=== PATIENT | male | born 1985 | race Caucasian/White ===

== ENCOUNTER 2017-05-21 05:25 | Emergency (ER) | payer MEDICAID ==
[~2017-05-21] VITALS: Ht 175.3 cm; Wt 83.9 kg
[2017-05-21] MEDS ORDERED: chlordiazePOXIDE 25mg Cap ORAL ONE (05:30)
[2017-05-21] MEDS ORDERED: LIBRIUM25 MG ORAL (05:30)
--- NOTE | 2017-05-21 05:31 | Emergency Room Report ---
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 Also heavy drinker. He only get about 2 bottles vodka a day. He cut down to the or. Last drink was around 10:30 PM. He presents with alcohol withdrawal and shakiness. Also with vomiting. No suicidal thought homicidal thought. No fever or chills. Similar symptoms in the past. Denies any other complaint. Allergies: Coded Allergies: No Known Allergies (Unverified , 02/11/16) Patient History Past Medical History: see triage record, old chart reviewed Past Surgical History: other Pertinent Family History: none Social History: Reports: smoking, alcohol use, drug use Immunizations: other Reviewed Nursing Documentation: PMH: Agreed, PSxH: Agreed Nursing Documentation-PMH Past Medical History: No Stated History Review of Systems Eye: Denies: eye pain, blurred vision ENT: Denies: ear pain, nose congestion, throat swelling Respiratory: Denies: cough, shortness of breath Cardiovascular: Denies: chest pain, palpitations Gastrointestinal: Reports: abdominal pain, nausea, vomiting, Denies: diarrhea Musculoskeletal: Denies: back pain, joint pain Skin: Denies: rash Neurological: Denies: headache, numbness Endocrine: Denies: increased thirst, increased urine Hematologic/Lymphatic: Denies: easy bruising All Other Systems: negative except mentioned in HPI Physical Exam Vital Signs Date Time Temp Pulse Resp B/P (MAP) Pulse Ox O2 Delivery O2 Flow Rate FiO2 05/21/17 05:19 99.0 107 20 128/79 99 Room Air vitals with tachycardi Sp02 EP Interpretation: reviewed, normal General Appearance: well appearing, no apparent distress, alert Head: normocephalic, atraumatic Eyes: bilateral eye PERRL, bilateral eye EOMI ENT: hearing grossly normal, normal pharynx Neck: full range of motion, supple, no meningismus Respiratory: chest non-tender, lungs clear, normal breath sounds Cardiovascular #1: regular rate, rhythm, no murmur Gastrointestinal: normal bowel sounds, non tender, no mass, no organomegaly, no bruit, non-distended Musculoskeletal: back normal, gait/station normal, normal range of motion Neurologic: alert, oriented x3, other - Tremulous Psychiatric: mood/affect normal Skin: warm/dry Medical Decision Making Diagnostic Impression: Primary Impression: Alcohol withdrawal Qualified Codes: F10.230 - Alcohol dependence with withdrawal, uncomplicated ER Course Patient with alcohol withdrawal. Better after Ativan and Phenergan. Also give him Librium. We'll discharge home. No evidence of suicidal thought homicidal thought. No criteria for 5150. Last Vital Signs Date Time Temp Pulse Resp B/P (MAP) Pulse Ox O2 Delivery O2 Flow Rate FiO2 05/21/17 05:19 99.0 107 20 128/79 99 Room Air Status: improved Disposition: HOME, SELF-CARE Condition: Stable Scripts Chlordiazepoxide (Chlordiazepoxide HCl) 25 Mg Capsule 25 MG ORAL THREE TIMES A DAY, #21 CAP 0 Refills Prov: ISATU PETERSEN M.D. 05/21/17 Additional Instructions: Abstain from drugs and alcohol. Followup with rehabilitation. Go to AA meeting. Followup with your Dr. in 7 days. Return if worse. ISATU PETERSEN M.D. May 21, 2017 05:31
[2017-05-21] MEDS ORDERED: LORazepam Inj 2mg/ml 1ml IM ONE (05:45)
[2017-05-21 06:36] VITALS: BP 128/79
== END 2017-05-21 06:38 | disposition home or self-care (01) ==
LOC: EDBD 05:25 → EMR 05:36
DX: F10.239 Alcohol dependence with withdrawal, unspecified (principal); F11.10 Opioid abuse, uncomplicated
CPT/HCPCS: 96372; 99283; J2550

== ENCOUNTER 2017-06-28 17:50 | Emergency (ER) | payer MEDICAID ==
[~2017-06-28] VITALS: Ht 172.7 cm; Wt 72.6 kg
[~2017-06-28 17:50] MED LIST: LIBRIUM25 MG ORAL
[2017-06-28] MEDS ORDERED: LORazepam Inj 2mg/ml 1ml IV ONE (19:00)
[2017-06-28 19:13] LABS: LYMPHOCYTES % (AUTO) 25.8 % (20.0-45.0); MEAN CORPUSCULAR HEMOGLOBIN 31.2 PG (27.0-31.0); MEAN CORPUSCULAR HGB CONC 30.8 G/DL (32.0-36.0); MEAN CORPUSCULAR VOLUME 101 FL (80-99); MEAN PLATELET VOLUME 6.9 FL (6.5-10.1); NEUTROPHILS % (AUTO) 67.1 % (45.0-75.0); PLATELET COUNT 130 K/UL (150-450); RED BLOOD COUNT 5.23 M/UL (4.70-6.10); RED CELL DISTRIBUTION WIDTH 12.2 % (11.6-14.8); WHITE BLOOD COUNT 6.2 K/UL (4.8-10.8)
[2017-06-28 19:23] LABS: ALANINE AMINOTRANSFERASE 248 U/L (12-78); ALBUMIN/GLOBULIN RATIO 0.8 (1.0-2.7); ALCOHOL 251 mg/dL; ANION GAP 12 mmol/L (5-15); ASPARTATE AMINO TRANSFERASE 322 U/L (15-37); CALCIUM 9.9 MG/DL (8.5-10.1); CARBON DIOXIDE 34 MMOL/L (21-32); CHLORIDE 97 MMOL/L (98-107); GLOMERULAR FILTRATION RATE > 60 mL/min (>60); POTASSIUM 4.3 MMOL/L (3.5-5.1); SODIUM 143 MMOL/L (136-145); TOTAL PROTEIN 9.6 G/DL (6.4-8.2)
[2017-06-28 19:28] VITALS: BP 145/95
[2017-06-28 19:35] LABS: ACETAMINOPHEN < 10 ug/mL (10-30)
--- NOTE | 2017-06-28 20:19 | Emergency Room Report ---
History of Present Illness General Chief Complaint: Nausea, Vomiting, and Diarrhea Source: Patient Present Illness HPI 32 YO Male Presents to the ED c/o nausea vomiting x 3 days. He denies blood in the vomit denies blood in his vomit or stool. denies dark tarry stools. reports history of alcohol dependence, withdrawal symptoms in addition to opiate dependence and is currently on methadone. Denies fevers, chills, recent travel, ill contacts. Patient denies abdominal pain. Reports drinking alcohol previously today. Denies trauma or fall. Denies CP, Palpitations, LOC, AMS, dizziness, Changes in Vision, Sensation, paresthesias, or a sudden severe headache. Allergies: Coded Allergies: CODEINE (Unverified Allergy, Unknown, 06/28/17) Patient History Past Medical History: see triage record Past Surgical History: none Pertinent Family History: none Social History: Reports: alcohol use, drug use Immunizations: UTD Reviewed Nursing Documentation: PMH: Agreed, PSxH: Agreed Nursing Documentation-PMH Past Medical History: No History, Except For Review of Systems All Other Systems: negative except mentioned in HPI Physical Exam Vital Signs Date Time Temp Pulse Resp B/P (MAP) Pulse Ox O2 Delivery O2 Flow Rate FiO2 06/28/17 17:39 98.2 130 16 150/100 99 Room Air Sp02 EP Interpretation: reviewed, normal General Appearance: alert, GCS 15, non-toxic, mild distress Head: normocephalic, atraumatic Eyes: bilateral eye normal inspection, bilateral eye PERRL ENT: hearing grossly normal, normal voice Neck: full range of motion, supple/symm/no masses Respiratory: lungs clear, normal breath sounds, speaking full sentences Cardiovascular #1: regular rate, rhythm, normal capillary refill, tachycardia Gastrointestinal: normal bowel sounds, non tender, soft, no guarding, no rebound, other - Negative Bernard signs, Negative MacBurney's sign, Negative Rosvigns Sign, Negative Psoas, No Peritoneal signs. Rectal: deferred Genitourinary: normal inspection Musculoskeletal: back normal, gait/station normal, normal range of motion, non- tender Neurologic: alert, oriented x3, responsive, motor strength/tone normal, sensory intact Psychiatric: judgement/insight normal, memory normal, mood/affect normal Skin: normal color, no rash, warm/dry, well hydrated Medical Decision Making PA Attestation Dr. Hernandez is my supervising Physician whom patient management has been discussed with. Diagnostic Impression: Primary Impression: Alcohol dependence with acute alcoholic intoxication without complication Additional Impressions: Elevated liver enzymes Gastritis Qualified Codes: K29.20 - Alcoholic gastritis without bleeding ER Course 32 YO Male Presents to the ED c/o nausea vomiting x 3 days. He denies blood in the vomit denies blood in his vomit or stool. denies dark tarry stools. reports history of alcohol dependence, withdrawal symptoms in addition to opiate dependence and is currently on methadone. Denies fevers, chills, recent travel, ill contacts. Patient denies abdominal pain. Reports drinking alcohol previously today. Denies trauma or fall. Denies CP, Palpitations, LOC, AMS, dizziness, Changes in Vision, Sensation, paresthesias, or a sudden severe headache. Pt. presents to the ED intoxicated with alcohol, pt. is NAD, pt. is alert, no obvious signs of trauma, able to ambulate to chair. Ddx considered but are not limited to ETOH, Trauma, Syncope, dementia, OD Vital signs: are WNL, pt. is afebrile H&PE are most consistent with ETOH abuse. , no evidence of trauma, no focal neurological deficits, no evidence to suggest infection. ORDERS: -CBC: no leukocytosis, no evidence to suggest acute hemorrhage. -CMP: moderately elevated AST/ALT and Alk. Phos. -UDS: Positive for benzo's - Serum ETOH: 251 ED INTERVENTIONS: - Ns Bolus - ZOfran - Pepcid -1mg Ativan -Observance while he detoxifies. Pt. was allowed to sleep/rest until clinically sober. -Pt. requests to leave. he is answering questions appropriately, able to ambulate on his own. DISCHARGE: At this time pt. is stable for d/c to home. Will provide printed patient care instructions, and any necessary prescriptions. Care plan and follow up instructions have been discussed with the patient prior to discharge. Labs Test 06/28/17 18:40 06/28/17 19:00 White Blood Count 6.2 K/UL (4.8-10.8) Red Blood Count 5.23 M/UL (4.70-6.10) Hemoglobin 16.4 G/DL (14.2-18.0) Hematocrit 53.0 % (42.0-52.0) Mean Corpuscular Volume 101 FL (80-99) Mean Corpuscular Hemoglobin 31.2 PG (27.0-31.0) Mean Corpuscular Hemoglobin Concent 30.8 G/DL (32.0-36.0) Red Cell Distribution Width 12.2 % (11.6-14.8) Platelet Count 130 K/UL (150-450) Mean Platelet Volume 6.9 FL (6.5-10.1) Neutrophils (%) (Auto) 67.1 % (45.0-75.0) Lymphocytes (%) (Auto) 25.8 % (20.0-45.0) Monocytes (%) (Auto) 6.0 % (1.0-10.0) Eosinophils (%) (Auto) 0.0 % (0.0-3.0) Basophils (%) (Auto) 1.0 % (0.0-2.0) Sodium Level 143 MMOL/L (136-145) Potassium Level 4.3 MMOL/L (3.5-5.1) Chloride Level 97 MMOL/L (98-107) Carbon Dioxide Level 34 MMOL/L (21-32) Anion Gap 12 mmol/L (5-15) Blood Urea Nitrogen 17 mg/dL (7-18) Creatinine 1.0 MG/DL (0.55-1.30) Estimat Glomerular Filtration Rate > 60 mL/min (>60) Glucose Level 109 MG/DL (74-106) Calcium Level 9.9 MG/DL (8.5-10.1) Total Bilirubin 0.8 MG/DL (0.2-1.0) Aspartate Amino Transf (AST/SGOT) 322 U/L (15-37) Alanine Aminotransferase (ALT/SGPT) 248 U/L (12-78) Alkaline Phosphatase 155 U/L (46-116) Total Protein 9.6 G/DL (6.4-8.2) Albumin 4.4 G/DL (3.4-5.0) Globulin 5.2 g/dL Albumin/Globulin Ratio 0.8 (1.0-2.7) Salicylates Level < 1 mg/dL (10-30) Acetaminophen Level < 10 ug/mL (10-30) Serum Alcohol 251 mg/dL Urine Opiates Screen Negative (NEGATIVE) Urine Barbiturates Screen Negative (NEGATIVE) Phencyclidine (PCP) Screen Negative (NEGATIVE) Urine Amphetamines Screen Negative (NEGATIVE) Urine Benzodiazepines Screen Positive (NEGATIVE) Urine Cocaine Screen Negative (NEGATIVE) Urine Marijuana (THC) Screen Negative (NEGATIVE) Last Vital Signs Date Time Temp Pulse Resp B/P (MAP) Pulse Ox O2 Delivery O2 Flow Rate FiO2 06/28/17 19:28 98.2 98 16 145/95 99 Room Air Disposition: HOME, SELF-CARE Condition: Stable Scripts Ondansetron Odt* (ZOFRAN ODT*) 4 Mg Tab.rapdis 4 MG ORAL Q6H Y for Nausea & Vomiting, #5 TAB Prov: Randa Nelson 06/28/17 Chlordiazepoxide Hcl* (LIBRIUM*) 10 Mg Capsule 10 MG ORAL Q8HR, #2 CAP 0 Refills Prov: Randa Nelson 06/28/17 Patient Instructions: Alcohol Intoxication, [id number], Alcohol Withdrawal, Rsmg-fs-[id number], Alcoholic Liver Disease, [id number] Additional Instructions: Take medications as directed. Follow up with a Primary Care Provider in 3-5 days, even if your symptoms have resolved. --Please review list of primary care clinics, if you do not already have a primary care provider --- REVIEW list of ALCOHOL/Substance DEPENDENCE RESOURCES. STOP DRINKING ALCOHOL> Return sooner to ED if new symptoms occur, or current symptoms become worse. Do not drink alcohol, drive, or operate heavy machinery while taking LIBRIUM as this may cause drowsiness. - Please note that this Emergency Department Report was dictated using [employer] and [employer] robot[employer] mechanic technology software, occasionally this can lead to erroneous entry secondary to interpretation by the dictation equipment. Randa Nelson Jun 28, 2017 20:19
[2017-06-28] MEDS ORDERED: LIBRIUM10 MG ORAL (20:21)
[2017-06-28] MEDS ORDERED: ZOFRAN ODT4 MG ORAL (20:21)
[2017-06-28 21:15] VITALS: BP 138/88
== END 2017-06-28 21:15 | disposition home or self-care (01) ==
LOC: EDBD 17:50 → EMR 18:30
DX: F10.229 Alcohol dependence with intoxication, unspecified (principal); R74.8 Abnormal levels of other serum enzymes; K29.70 Gastritis, unspecified, without bleeding; R11.2 Nausea with vomiting, unspecified; Z88.6 Allergy status to analgesic agent
CPT/HCPCS: 36415; 80053; 80306; 80329; 85025; 96372; 96374; 96375; 99284; J2405; S0028

== ENCOUNTER 2017-07-08 11:57 | Inpatient (IN) | payer MEDICAID ==
[~2017-07-08] VITALS: Ht 172.7 cm; Wt 83.5 kg
[~2017-07-08 11:57] MED LIST changes: +LIBRIUM10 MG ORAL; +ZOFRAN ODT4 MG ORAL
[2017-07-08] MEDS ORDERED: LORazepam Inj 2mg/ml 1ml IV ONE (12:15)
[2017-07-08 12:40] VITALS: BP 145/100
[2017-07-08 12:46] LABS: BASOPHILS % (AUTO) 1.8 % (0.0-2.0); EOSINOPHILS % (AUTO) 0.1 % (0.0-3.0); HEMATOCRIT 52.3 % (42.0-52.0); HEMOGLOBIN 17.4 G/DL (14.2-18.0); MEAN CORPUSCULAR VOLUME 98 FL (80-99); MONOCYTES % (AUTO) 7.7 % (1.0-10.0); NEUTROPHILS % (AUTO) 60.4 % (45.0-75.0); PLATELET COUNT 214 K/UL (150-450); RED BLOOD COUNT 5.32 M/UL (4.70-6.10); RED CELL DISTRIBUTION WIDTH 12.3 % (11.6-14.8); WHITE BLOOD COUNT 3.9 K/UL (4.8-10.8)
[2017-07-08 13:22] LABS: ALANINE AMINOTRANSFERASE 255 U/L (12-78); ALBUMIN 4.1 G/DL (3.4-5.0); ALBUMIN/GLOBULIN RATIO 0.7 (1.0-2.7); ALKALINE PHOSPHATASE 141 U/L (46-116); ANION GAP 17 mmol/L (5-15); ASPARTATE AMINO TRANSFERASE 468 U/L (15-37); BILIRUBIN,TOTAL 0.8 MG/DL (0.2-1.0); BLOOD UREA NITROGEN 13 mg/dL (7-18); CARBON DIOXIDE 28 MMOL/L (21-32); CHLORIDE 93 MMOL/L (98-107); CREATININE 0.8 MG/DL (0.55-1.30); POTASSIUM 4.1 MMOL/L (3.5-5.1); SODIUM 138 MMOL/L (136-145)
[2017-07-08] MEDS ORDERED: XANAX0.25 MG ORAL (13:51)
[2017-07-08] MEDS ORDERED: METHADONE HCL5 MG PO (13:51)
--- NOTE | 2017-07-08 14:06 | Emergency Room Report ---
History of Present Illness General Chief Complaint: Vomiting Source: Patient Present Illness HPI Patient presents emergency department today complaining of vomiting. Patient is an alcoholic and takes methadone he drank last yesterday and developed acute onset of nausea abdominal pain associate of vomiting today. He denies any fever. Complains of diffuse body aches. Denies any chest pain. No other complaints are noted. Symptoms noted to be severe.No other modifying factors. No other associated signs and symptoms. No other complaints were noted. Allergies: Coded Allergies: CODEINE (Unverified Allergy, Unknown, 06/28/17) Patient History Past Medical History: none Past Surgical History: none Social History: Reports: smoking, alcohol use, drug use Reviewed Nursing Documentation: PMH: Agreed, PSxH: Agreed Nursing Documentation-PMH Past Medical History: No Stated History Review of Systems All Other Systems: negative except mentioned in HPI Physical Exam Vital Signs Date Time Temp Pulse Resp B/P (MAP) Pulse Ox O2 Delivery O2 Flow Rate FiO2 07/08/17 11:52 98.1 112 18 140/98 99 Room Air 07/08/17 12:40 2.0 Sp02 EP Interpretation: reviewed, normal General Appearance: alert, moderate distress Head: atraumatic Eyes: bilateral eye normal inspection ENT: normal ENT inspection, hearing grossly normal, normal voice Neck: normal inspection, full range of motion, supple, no bony tend Respiratory: normal inspection, lungs clear, normal breath sounds, no respiratory distress, no retraction, no wheezing Cardiovascular #1: regular rate, rhythm, no edema Gastrointestinal: soft, no guarding, tenderness - epigastric Genitourinary: no CVA tenderness Musculoskeletal: normal inspection, back normal, normal range of motion Neurologic: normal inspection, alert, responsive, speech normal Psychiatric: normal inspection, depressed affect Skin: normal inspection, normal color, no rash Medical Decision Making Diagnostic Impression: Primary Impression: Vomiting Qualified Codes: R11.2 - Nausea with vomiting, unspecified Additional Impressions: Pancreatitis Alcohol abuse Opiate addiction ER Course Patient presents emergency department today complaining of abdominal pain. Differential diagnoses include hepatitis, cholecystitis, gastritis, gastritis, alcohol withdrawal just to name a few.Given the severity of the patient's presentation I felt this is a highly complex patient. This patient required extensive workup. Patient's laboratory workup shows significant elevation of lipase which is consistent with pancreatitis. Because of this presentation and patient's persistent vomiting for the patient require admission to the hospital further treatment. I will discuss his case with Dr. Sawyer for admission. Labs Test 07/08/17 12:25 White Blood Count 3.9 K/UL (4.8-10.8) Red Blood Count 5.32 M/UL (4.70-6.10) Hemoglobin 17.4 G/DL (14.2-18.0) Hematocrit 52.3 % (42.0-52.0) Mean Corpuscular Volume 98 FL (80-99) Mean Corpuscular Hemoglobin 32.7 PG (27.0-31.0) Mean Corpuscular Hemoglobin Concent 33.3 G/DL (32.0-36.0) Red Cell Distribution Width 12.3 % (11.6-14.8) Platelet Count 214 K/UL (150-450) Mean Platelet Volume 6.4 FL (6.5-10.1) Neutrophils (%) (Auto) 60.4 % (45.0-75.0) Lymphocytes (%) (Auto) 30.0 % (20.0-45.0) Monocytes (%) (Auto) 7.7 % (1.0-10.0) Eosinophils (%) (Auto) 0.1 % (0.0-3.0) Basophils (%) (Auto) 1.8 % (0.0-2.0) Sodium Level 138 MMOL/L (136-145) Potassium Level 4.1 MMOL/L (3.5-5.1) Chloride Level 93 MMOL/L (98-107) Carbon Dioxide Level 28 MMOL/L (21-32) Anion Gap 17 mmol/L (5-15) Blood Urea Nitrogen 13 mg/dL (7-18) Creatinine 0.8 MG/DL (0.55-1.30) Estimat Glomerular Filtration Rate > 60 mL/min (>60) Glucose Level 118 MG/DL (74-106) Calcium Level 9.0 MG/DL (8.5-10.1) Total Bilirubin 0.8 MG/DL (0.2-1.0) Aspartate Amino Transf (AST/SGOT) 468 U/L (15-37) Alanine Aminotransferase (ALT/SGPT) 255 U/L (12-78) Alkaline Phosphatase 141 U/L (46-116) Total Protein 9.6 G/DL (6.4-8.2) Albumin 4.1 G/DL (3.4-5.0) Globulin 5.5 g/dL Albumin/Globulin Ratio 0.7 (1.0-2.7) Lipase 1681 U/L (73-393) Last Vital Signs Date Time Temp Pulse Resp B/P (MAP) Pulse Ox O2 Delivery O2 Flow Rate FiO2 07/08/17 12:40 98.0 108 15 145/100 95 Nasal Cannula 2.0 Status: improved Disposition: ADMITTED INPATIENT Condition: Serious Referrals: NOT CHOSEN IPA/,REFERRING (PCP) ANNA JIMENEZ M.D. Jul 08, 2017 14:06
[2017-07-08 14:14] VITALS: BP 142/98
[2017-07-08 14:33] LABS: APPEARANCE,URINE CLEAR; BILIRUBIN, URINE 1+ (NEGATIVE); COLOR,URINE BROWN; GLUCOSE, URINE (UA) NEGATIVE (NEGATIVE); KETONES,URINE 1+ (NEGATIVE); LEUKOCYTE ESTERASE ,URINE 1+ (NEGATIVE); NITRITE,URINE POSITIVE (NEGATIVE); PH,URINE 6 (4.5-8.0); PROTEIN,URINE 4+ (NEGATIVE); UROBILINOGEN,URINE 4 MG/DL (0.0-1.0)
[2017-07-08] MEDS ORDERED: Metoclopramide 10mg/2ml Inj IVP PRN (15:15)
[2017-07-08] MEDS ORDERED: Miralax 17gm pkt ORAL PRN (15:15)
[2017-07-08] MEDS ORDERED: Mylanta II UD 30ml ORAL PRN (15:15)
[2017-07-08] MEDS ORDERED: Nitroglycerin Subl 0.4mg tab SL PRN (15:15)
[2017-07-08 15:24] VITALS: BP 140/89
[2017-07-08 16:00] VITALS: BP 143/93
[2017-07-08] MEDS: D5 1/2NS 1,000 ML IV SCH (16:43)
[2017-07-08] MEDS: LORazepam Inj 2mg/ml 1ml IV PRN (16:43)
[2017-07-08 21:00] VITALS: BP 148/96
[2017-07-08] MEDS: Heparin 5000 units/ml inj SUBQ SCH (22:21)
[2017-07-09] VITALS: BP 147/97
[2017-07-09] MEDS: D5 1/2NS 1,000 ML IV SCH ×3 (03:41→23:10)
[2017-07-09 04:00] VITALS: BP 139/90
[2017-07-09 08:00] VITALS: BP 147/89
--- NOTE | 2017-07-09 08:12 | General Progress Note ---
Assessment/Plan Problem List: (1) Alcohol abuse ICD Codes: F10.10 - Alcohol abuse, uncomplicated SNOMED: 78804401 (2) Opiate addiction ICD Codes: F11.20 - Opioid dependence, uncomplicated SNOMED: 32345015 (3) Pancreatitis ICD Codes: K85.90 - Acute pancreatitis without necrosis or infection, unspecified SNOMED: 83116544 Assessment/Plan NPO increase IVF to 150 cc abd us banana bag pain control repeat labs Subjective ROS Limited/Unobtainable: Yes Allergies: Coded Allergies: CODEINE (Unverified Allergy, Unknown, 06/28/17) Subjective abd pain Objective Last 24 Hour Vital Signs Date Time Temp Pulse Resp B/P (MAP) Pulse Ox O2 Delivery O2 Flow Rate FiO2 07/09/17 04:00 98.1 99 21 139/90 98 Room Air 07/09/17 00:00 98.1 100 21 147/97 97 Room Air 07/08/17 21:00 97.9 103 20 148/96 96 Room Air 07/08/17 16:00 97.5 101 19 143/93 94 Room Air 07/08/17 15:25 98.0 100 17 140/89 95 Room Air 07/08/17 15:24 100 17 140/89 95 Room Air 07/08/17 14:14 98.0 100 14 142/98 95 Nasal Cannula 2.0 07/08/17 12:40 98.0 108 15 145/100 95 Nasal Cannula 2.0 07/08/17 11:52 98.1 112 18 140/98 99 Room Air Laboratory Tests 07/08/17 12:25: White Blood Count 3.9L, Red Blood Count 5.32, Hemoglobin 17.4, Hematocrit 52.3H , Mean Corpuscular Volume 98, Mean Corpuscular Hemoglobin 32.7H, Mean Corpuscular Hemoglobin Concent 33.3, Red Cell Distribution Width 12.3, Platelet Count 214, Mean Platelet Volume 6.4L, Neutrophils (%) (Auto) 60.4, Lymphocytes ( %) (Auto) 30.0, Monocytes (%) (Auto) 7.7, Eosinophils (%) (Auto) 0.1, Basophils (%) (Auto) 1.8, Sodium Level 138, Potassium Level 4.1, Chloride Level 93L, Carbon Dioxide Level 28, Anion Gap 17H, Blood Urea Nitrogen 13, Creatinine 0.8, Estimat Glomerular Filtration Rate > 60, Glucose Level 118H, Calcium Level 9.0, Total Bilirubin 0.8, Aspartate Amino Transf (AST/SGOT) 468H, Alanine Aminotransferase (ALT/SGPT) 255H, Alkaline Phosphatase 141H, Total Protein 9.6H , Albumin 4.1, Globulin 5.5, Albumin/Globulin Ratio 0.7L, Lipase 1681H 07/08/17 14:00: Urine Color Brown, Urine Appearance Clear, Urine pH 6, Urine Specific [place] 1.020, Urine Protein 4+H, Urine Glucose (UA) Negative, Urine Ketones 1+H, Urine Occult Blood 4+H, Urine Nitrite PositiveH, Urine Bilirubin 1+H, Urine Ictotest Negative, Urine Urobilinogen 4H, Urine Leukocyte Esterase 1+H, Urine RBC 2-4H, Urine WBC 2-4, Urine Squamous Epithelial Cells Occasional, Urine Bacteria Few, Urine Hyaline Casts 2-4H, Urine Granular Casts 2-4H Height (Feet): 5 Height (Inches): 8.00 Weight (Pounds): 184 General Appearance: alert EENT: normal ENT inspection Neck: normal alignment Cardiovascular: normal rate Respiratory/Chest: lungs clear Abdomen: hypoactive bowel sounds, tender Extremities: non-tender PADMINI BROWN Jul 09, 2017 08:12
--- NOTE | 2017-07-09 08:12 | General Progress Note ---
Assessment/Plan Problem List: (1) Alcohol abuse ICD Codes: F10.10 - Alcohol abuse, uncomplicated SNOMED: 13889741 (2) Opiate addiction ICD Codes: F11.20 - Opioid dependence, uncomplicated SNOMED: 21927211 (3) Pancreatitis ICD Codes: K85.90 - Acute pancreatitis without necrosis or infection, unspecified SNOMED: 87852301 Assessment/Plan NPO increase IVF to 150 cc abd us banana bag pain control repeat labs Subjective ROS Limited/Unobtainable: Yes Allergies: Coded Allergies: CODEINE (Unverified Allergy, Unknown, 06/28/17) Subjective abd pain Objective Last 24 Hour Vital Signs Date Time Temp Pulse Resp B/P (MAP) Pulse Ox O2 Delivery O2 Flow Rate FiO2 07/09/17 04:00 98.1 99 21 139/90 98 Room Air 07/09/17 00:00 98.1 100 21 147/97 97 Room Air 07/08/17 21:00 97.9 103 20 148/96 96 Room Air 07/08/17 16:00 97.5 101 19 143/93 94 Room Air 07/08/17 15:25 98.0 100 17 140/89 95 Room Air 07/08/17 15:24 100 17 140/89 95 Room Air 07/08/17 14:14 98.0 100 14 142/98 95 Nasal Cannula 2.0 07/08/17 12:40 98.0 108 15 145/100 95 Nasal Cannula 2.0 07/08/17 11:52 98.1 112 18 140/98 99 Room Air Laboratory Tests 07/08/17 12:25: White Blood Count 3.9L, Red Blood Count 5.32, Hemoglobin 17.4, Hematocrit 52.3H , Mean Corpuscular Volume 98, Mean Corpuscular Hemoglobin 32.7H, Mean Corpuscular Hemoglobin Concent 33.3, Red Cell Distribution Width 12.3, Platelet Count 214, Mean Platelet Volume 6.4L, Neutrophils (%) (Auto) 60.4, Lymphocytes ( %) (Auto) 30.0, Monocytes (%) (Auto) 7.7, Eosinophils (%) (Auto) 0.1, Basophils (%) (Auto) 1.8, Sodium Level 138, Potassium Level 4.1, Chloride Level 93L, Carbon Dioxide Level 28, Anion Gap 17H, Blood Urea Nitrogen 13, Creatinine 0.8, Estimat Glomerular Filtration Rate > 60, Glucose Level 118H, Calcium Level 9.0, Total Bilirubin 0.8, Aspartate Amino Transf (AST/SGOT) 468H, Alanine Aminotransferase (ALT/SGPT) 255H, Alkaline Phosphatase 141H, Total Protein 9.6H , Albumin 4.1, Globulin 5.5, Albumin/Globulin Ratio 0.7L, Lipase 1681H 07/08/17 14:00: Urine Color Brown, Urine Appearance Clear, Urine pH 6, Urine Specific [place] 1.020, Urine Protein 4+H, Urine Glucose (UA) Negative, Urine Ketones 1+H, Urine Occult Blood 4+H, Urine Nitrite PositiveH, Urine Bilirubin 1+H, Urine Ictotest Negative, Urine Urobilinogen 4H, Urine Leukocyte Esterase 1+H, Urine RBC 2-4H, Urine WBC 2-4, Urine Squamous Epithelial Cells Occasional, Urine Bacteria Few, Urine Hyaline Casts 2-4H, Urine Granular Casts 2-4H Height (Feet): 5 Height (Inches): 8.00 Weight (Pounds): 184 General Appearance: alert EENT: normal ENT inspection Neck: normal alignment Cardiovascular: normal rate Respiratory/Chest: lungs clear Abdomen: hypoactive bowel sounds, tender Extremities: non-tender PADMINI BROWN Jul 09, 2017 08:12
--- NOTE | 2017-07-09 08:12 | General Progress Note ---
Assessment/Plan Problem List: (1) Alcohol abuse ICD Codes: F10.10 - Alcohol abuse, uncomplicated SNOMED: 96859447 (2) Opiate addiction ICD Codes: F11.20 - Opioid dependence, uncomplicated SNOMED: 72035422 (3) Pancreatitis ICD Codes: K85.90 - Acute pancreatitis without necrosis or infection, unspecified SNOMED: 62314730 Assessment/Plan NPO increase IVF to 150 cc abd us banana bag pain control repeat labs Subjective ROS Limited/Unobtainable: Yes Allergies: Coded Allergies: CODEINE (Unverified Allergy, Unknown, 06/28/17) Subjective abd pain Objective Last 24 Hour Vital Signs Date Time Temp Pulse Resp B/P (MAP) Pulse Ox O2 Delivery O2 Flow Rate FiO2 07/09/17 04:00 98.1 99 21 139/90 98 Room Air 07/09/17 00:00 98.1 100 21 147/97 97 Room Air 07/08/17 21:00 97.9 103 20 148/96 96 Room Air 07/08/17 16:00 97.5 101 19 143/93 94 Room Air 07/08/17 15:25 98.0 100 17 140/89 95 Room Air 07/08/17 15:24 100 17 140/89 95 Room Air 07/08/17 14:14 98.0 100 14 142/98 95 Nasal Cannula 2.0 07/08/17 12:40 98.0 108 15 145/100 95 Nasal Cannula 2.0 07/08/17 11:52 98.1 112 18 140/98 99 Room Air Laboratory Tests 07/08/17 12:25: White Blood Count 3.9L, Red Blood Count 5.32, Hemoglobin 17.4, Hematocrit 52.3H , Mean Corpuscular Volume 98, Mean Corpuscular Hemoglobin 32.7H, Mean Corpuscular Hemoglobin Concent 33.3, Red Cell Distribution Width 12.3, Platelet Count 214, Mean Platelet Volume 6.4L, Neutrophils (%) (Auto) 60.4, Lymphocytes ( %) (Auto) 30.0, Monocytes (%) (Auto) 7.7, Eosinophils (%) (Auto) 0.1, Basophils (%) (Auto) 1.8, Sodium Level 138, Potassium Level 4.1, Chloride Level 93L, Carbon Dioxide Level 28, Anion Gap 17H, Blood Urea Nitrogen 13, Creatinine 0.8, Estimat Glomerular Filtration Rate > 60, Glucose Level 118H, Calcium Level 9.0, Total Bilirubin 0.8, Aspartate Amino Transf (AST/SGOT) 468H, Alanine Aminotransferase (ALT/SGPT) 255H, Alkaline Phosphatase 141H, Total Protein 9.6H , Albumin 4.1, Globulin 5.5, Albumin/Globulin Ratio 0.7L, Lipase 1681H 07/08/17 14:00: Urine Color Brown, Urine Appearance Clear, Urine pH 6, Urine Specific [place] 1.020, Urine Protein 4+H, Urine Glucose (UA) Negative, Urine Ketones 1+H, Urine Occult Blood 4+H, Urine Nitrite PositiveH, Urine Bilirubin 1+H, Urine Ictotest Negative, Urine Urobilinogen 4H, Urine Leukocyte Esterase 1+H, Urine RBC 2-4H, Urine WBC 2-4, Urine Squamous Epithelial Cells Occasional, Urine Bacteria Few, Urine Hyaline Casts 2-4H, Urine Granular Casts 2-4H Height (Feet): 5 Height (Inches): 8.00 Weight (Pounds): 184 General Appearance: alert EENT: normal ENT inspection Neck: normal alignment Cardiovascular: normal rate Respiratory/Chest: lungs clear Abdomen: hypoactive bowel sounds, tender Extremities: non-tender PADMINI BROWN Jul 09, 2017 08:12
[2017-07-09 08:46] LABS: BASOPHILS % (AUTO) 1.4 % (0.0-2.0); EOSINOPHILS % (AUTO) 0.4 % (0.0-3.0); HEMATOCRIT 44.4 % (42.0-52.0); HEMOGLOBIN 15.2 G/DL (14.2-18.0); LYMPHOCYTES % (AUTO) 50.7 % (20.0-45.0); MEAN CORPUSCULAR VOLUME 98 FL (80-99); MONOCYTES % (AUTO) 9.3 % (1.0-10.0); NEUTROPHILS % (AUTO) 38.3 % (45.0-75.0); PLATELET COUNT 184 K/UL (150-450); RED BLOOD COUNT 4.52 M/UL (4.70-6.10); RED CELL DISTRIBUTION WIDTH 12.4 % (11.6-14.8); WHITE BLOOD COUNT 4.1 K/UL (4.8-10.8)
[2017-07-09] MEDS: Pantoprazole Inj IV SCH (08:55)
[2017-07-09] MEDS: Heparin 5000 units/ml inj SUBQ SCH ×2 (08:56→21:33)
[2017-07-09] MEDS: LORazepam Inj 2mg/ml 1ml IV PRN ×2 (09:06→18:32)
[2017-07-09 09:09] LABS: ALANINE AMINOTRANSFERASE 198 U/L (12-78); ALBUMIN 3.6 G/DL (3.4-5.0); ALBUMIN/GLOBULIN RATIO 0.8 (1.0-2.7); ALKALINE PHOSPHATASE 116 U/L (46-116); AMYLASE 185 U/L (25-115); ANION GAP 13 mmol/L (5-15); ASPARTATE AMINO TRANSFERASE 330 U/L (15-37); BILIRUBIN,TOTAL 0.6 MG/DL (0.2-1.0); BLOOD UREA NITROGEN 7 mg/dL (7-18); CALCIUM 8.4 MG/DL (8.5-10.1); CARBON DIOXIDE 28 MMOL/L (21-32); CHLORIDE 101 MMOL/L (98-107); CREATININE 0.7 MG/DL (0.55-1.30); POTASSIUM 3.5 MMOL/L (3.5-5.1); SODIUM 142 MMOL/L (136-145)
[2017-07-09] MEDS ORDERED: Thiamine HCl 100mg/ml 2 ml Inj ONE (10:42)
[2017-07-09] MEDS: Thiamine 100mg in D5W 55ml IVPB SCH (10:49)
[2017-07-09] MEDS: Folic Acid 1 MG, Magnesium Sulfate 2,000 MG, Multivitamin - 12 Injection 10 ML in NS w/... IV SCH (10:49)
[2017-07-09 12:00] VITALS: BP 145/95
--- NOTE | 2017-07-09 12:20 | History and Physical ---
History of Present Illness General Date patient seen: Jul 09, 2017 Reason for Hospitalization: Acute abdominal pain intractable emesis Present Illness HPI 32 yo gentleman with pmhx alcohol addiction and dependence who presents to [facility] a complaint of acute abdominal pain and intractable emesis inability to tolerate fluids or food and a recent history of alcohol binge drinking one night earlier, the patient presents after his abdominal pain worsened and emesis not improved. The patient is being admitted with a diagnosis of acute pancreatitis most likely alcohol induced and will be examined for other pathologies if concomittant. The abdominal pain is described as severe rated 10 out of 10 being worst constant with no relieving factors. Allergies: Coded Allergies: CODEINE (Unverified Allergy, Unknown, 06/28/17) Medication History Scheduled Chlordiazepoxide (Chlordiazepoxide HCl), 25 MG ORAL THREE TIMES A DAY Chlordiazepoxide Hcl* (Librium*), 25 MG ORAL EVERY 8 HOURS, (Reported) Folic Acid* (Folic Acid*), 1 MG ORAL DAILY Methadone Hcl* (Methadone*), Unknown Dose PO DAILY, (Reported) Thiamine Hcl* (Vitamin B-1*), 100 MG ORAL DAILY Scheduled PRN Ondansetron Odt* (Zofran Odt*), 4 MG ORAL Q6H PRN for Nausea & Vomiting Patient History Healthcare decision maker Resuscitation status Full Code Advanced Directive on File No Past Medical/Surgical History Past Medical/Surgical History: (1) Accidental methadone overdose (2) Acute alcoholic intoxication Review of Systems Constitutional: Reports: malaise, weakness Gastrointestinal: Reports: abdominal pain, vomiting Physical Exam General Appearance: moderate distress Lines, tubes and drains: peripheral HEENT: normocephalic, atraumatic, PERRL Neck: non-tender, normal alignment, supple Respiratory/Chest: chest wall non-tender, lungs clear, normal breath sounds, no respiratory distress, no accessory muscle use Breasts: no masses Cardiovascular/Chest: normal peripheral pulses, normal rate, regular rhythm, no JVD Abdomen: normal bowel sounds, non tender, soft, no organomegaly, no mass Genitourinary/Rectal: normal genital exam, normal rectal exam Extremities: normal range of motion, non-tender, normal inspection, no calf tenderness, normal capillary refill, non-pitting Skin Exam: normal pigmentation, warm/dry 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, no motor/sensory deficits, disoriented Last 24 Hour Vital Signs Date Time Temp Pulse Resp B/P (MAP) Pulse Ox O2 Delivery O2 Flow Rate FiO2 07/09/17 08:00 97.9 99 19 147/89 96 Room Air 07/09/17 04:00 98.1 99 21 139/90 98 Room Air 07/09/17 00:00 98.1 100 21 147/97 97 Room Air 07/08/17 21:00 97.9 103 20 148/96 96 Room Air 07/08/17 16:00 97.5 101 19 143/93 94 Room Air 07/08/17 15:25 98.0 100 17 140/89 95 Room Air 07/08/17 15:24 100 17 140/89 95 Room Air 07/08/17 14:14 98.0 100 14 142/98 95 Nasal Cannula 2.0 07/08/17 12:40 98.0 108 15 145/100 95 Nasal Cannula 2.0 Laboratory Tests Test 07/08/17 12:25 07/08/17 14:00 07/09/17 05:47 White Blood Count 3.9 K/UL (4.8-10.8) L 4.1 K/UL (4.8-10.8) L Red Blood Count 5.32 M/UL (4.70-6.10) 4.52 M/UL (4.70-6.10) L Hemoglobin 17.4 G/DL (14.2-18.0) 15.2 G/DL (14.2-18.0) Hematocrit 52.3 % (42.0-52.0) H 44.4 % (42.0-52.0) Mean Corpuscular Volume 98 FL (80-99) 98 FL (80-99) Mean Corpuscular Hemoglobin 32.7 PG (27.0-31.0) H 33.6 PG (27.0-31.0) H Mean Corpuscular Hemoglobin Concent 33.3 G/DL (32.0-36.0) 34.2 G/DL (32.0-36.0) Red Cell Distribution Width 12.3 % (11.6-14.8) 12.4 % (11.6-14.8) Platelet Count 214 K/UL (150-450) 184 K/UL (150-450) Mean Platelet Volume 6.4 FL (6.5-10.1) L 6.7 FL (6.5-10.1) Neutrophils (%) (Auto) 60.4 % (45.0-75.0) 38.3 % (45.0-75.0) L Lymphocytes (%) (Auto) 30.0 % (20.0-45.0) 50.7 % (20.0-45.0) H Monocytes (%) (Auto) 7.7 % (1.0-10.0) 9.3 % (1.0-10.0) Eosinophils (%) (Auto) 0.1 % (0.0-3.0) 0.4 % (0.0-3.0) Basophils (%) (Auto) 1.8 % (0.0-2.0) 1.4 % (0.0-2.0) Sodium Level 138 MMOL/L (136-145) 142 MMOL/L (136-145) Potassium Level 4.1 MMOL/L (3.5-5.1) 3.5 MMOL/L (3.5-5.1) Chloride Level 93 MMOL/L (98-107) L 101 MMOL/L (98-107) Carbon Dioxide Level 28 MMOL/L (21-32) 28 MMOL/L (21-32) Anion Gap 17 mmol/L (5-15) H 13 mmol/L (5-15) Blood Urea Nitrogen 13 mg/dL (7-18) 7 mg/dL (7-18) Creatinine 0.8 MG/DL (0.55-1.30) 0.7 MG/DL (0.55-1.30) Estimat Glomerular Filtration Rate > 60 mL/min (>60) > 60 mL/min (>60) Glucose Level 118 MG/DL (74-106) H 92 MG/DL (74-106) Calcium Level 9.0 MG/DL (8.5-10.1) 8.4 MG/DL (8.5-10.1) L Total Bilirubin 0.8 MG/DL (0.2-1.0) 0.6 MG/DL (0.2-1.0) Aspartate Amino Transf (AST/SGOT) 468 U/L (15-37) H 330 U/L (15-37) H Alanine Aminotransferase (ALT/SGPT) 255 U/L (12-78) H 198 U/L (12-78) H Alkaline Phosphatase 141 U/L (46-116) H 116 U/L (46-116) Total Protein 9.6 G/DL (6.4-8.2) H 7.9 G/DL (6.4-8.2) Albumin 4.1 G/DL (3.4-5.0) 3.6 G/DL (3.4-5.0) Globulin 5.5 g/dL 4.3 g/dL Albumin/Globulin Ratio 0.7 (1.0-2.7) L 0.8 (1.0-2.7) L Lipase 1681 U/L (73-393) H 1722 U/L (73-393) H Urine Color Brown Urine Appearance Clear Urine pH 6 (4.5-8.0) Urine Specific [place] 1.020 (1.005-1.035) Urine Protein 4+ (NEGATIVE) H Urine Glucose (UA) Negative (NEGATIVE) Urine Ketones 1+ (NEGATIVE) H Urine Occult Blood 4+ (NEGATIVE) H Urine Nitrite Positive (NEGATIVE) H Urine Bilirubin 1+ (NEGATIVE) H Urine Ictotest Negative Urine Urobilinogen 4 MG/DL (0.0-1.0) H Urine Leukocyte Esterase 1+ (NEGATIVE) H Urine RBC 2-4 /HPF (0 - 0) H Urine WBC 2-4 /HPF (0 - 0) Urine Squamous Epithelial Cells Occasional /LPF Urine Bacteria Few /HPF (NONE) Urine Hyaline Casts 2-4 /LPF (NONE) H Urine Granular Casts 2-4 /LPF (NONE) H Activated Partial Thromboplast Time 26 SEC (23-33) Amylase Level 185 U/L (25-115) H Height (Feet): 5 Height (Inches): 8.00 Weight (Pounds): 184 Medications Current Medications Medications (Trade) Dose Ordered Sig/Ihsan Route PRN Reason Start Time Stop Time Status Last Admin Dose Admin Acetaminophen (Tylenol) 650 mg Q4H PRN ORAL fever 07/08/17 15:15 08/07/17 15:14 Al Hydroxide/Mg Hydroxide (Mylanta II) 30 ml Q6H PRN ORAL dyspepsia 07/08/17 15:15 08/07/17 15:14 Dextrose (Dextrose 50%) STAT PRN IV Hypoglycemia 07/08/17 15:15 08/07/17 15:14 Dextrose/Sodium Chloride 1,000 ml @ 150 mls/hr Q6H40M IV 07/09/17 16:30 08/08/17 16:29 Diphenhydramine HCl (Benadryl) 25 mg Q6H PRN ORAL Itching/Pruritis 07/08/17 15:15 08/07/17 15:14 Folic Acid 1 mg/ Magnesium Sulfate 2000 mg/ Multivitamins 10 ml/Sodium Chloride 1,014.2 ml @ 125 mls/ hr Q24H IV 07/09/17 09:30 08/08/17 09:29 07/09/17 10:49 Heparin Sodium (Porcine) (Heparin 5000 units/ml) 5,000 units EVERY 12 HOURS SUBQ 07/08/17 21:00 08/07/17 20:59 07/09/17 08:56 Lorazepam (Ativan 2mg/ml 1ml) 1 mg Q4H PRN IV agitation 07/08/17 15:15 07/15/17 15:14 07/09/17 09:06 Methadone HCl (Methadone HCl) 5 mg DAILY ORAL 07/09/17 10:00 07/16/17 09:59 07/09/17 10:36 Methadone HCl (Methadone HCl) 180 mg DAILY ORAL 07/09/17 10:00 07/16/17 09:59 07/09/17 10:35 Metoclopramide HCl (Reglan) 10 mg Q6H PRN IVP SEVERE NAUSEA 07/08/17 15:15 08/07/17 15:14 07/08/17 16:29 Nitroglycerin (Ntg) 0.4 mg Q5M X 3 DOSES PRN SL Prn Chest Pain 07/08/17 15:15 08/07/17 15:14 Ondansetron HCl (Zofran) 4 mg Q6H PRN IVP Nausea & Vomiting 07/08/17 15:15 08/07/17 15:14 Pantoprazole (Protonix) 40 mg DAILY IV 07/09/17 09:00 08/08/17 08:59 07/09/17 08:55 Polyethylene Glycol (Miralax) 17 gm HSPRN PRN ORAL Constipation 07/08/17 15:15 08/07/17 15:14 Promethazine HCl (Phenergan) 25 mg Q8H PRN IV refractory nausea 07/08/17 15:15 08/07/17 15:14 Temazepam (Restoril) 15 mg HSPRN PRN ORAL Insomnia 07/08/17 15:15 07/15/17 15:14 Thiamine HCl 100 mg/Dextrose 56 ml @ 112 mls/hr Q24H IVPB 07/09/17 09:30 08/08/17 09:29 07/09/17 10:49 Assessment/Plan Status: stable, progressing Assessment/Plan Acute Pancreatitis Acute intractable emesis Inability to tolerate po intake Opiate addiction and dependence Alcohol abuse Plan NPO IV fluid hydration Gastroenterology requested Anti-emetics as needed Electrolyte replacement Alcoholic withdrawel symptomatic relief Patient education regarding abstaining from ETOH and pancreatic rest DANYELL SHANKAR Jul 09, 2017 12:20
[2017-07-09 16:00] VITALS: BP 139/90
[2017-07-09 20:00] VITALS: BP 151/93
[2017-07-10] VITALS: BP 130/86
[2017-07-10] MEDS: D5 1/2NS 1,000 ML IV SCH ×3 (00:27→18:35)
[2017-07-10 04:00] VITALS: BP 133/75
[2017-07-10] MEDS: LORazepam Inj 2mg/ml 1ml IV PRN ×3 (07:17→18:36)
--- NOTE | 2017-07-10 07:55 | General Progress Note ---
Assessment/Plan Problem List: (1) Alcohol abuse ICD Codes: F10.10 - Alcohol abuse, uncomplicated SNOMED: 49790845 (2) Opiate addiction ICD Codes: F11.20 - Opioid dependence, uncomplicated SNOMED: 43498306 (3) Pancreatitis ICD Codes: K85.90 - Acute pancreatitis without necrosis or infection, unspecified SNOMED: 59164545 Assessment/Plan clears IVF at 150 cc abd us banana bag pain control repeat labs Subjective ROS Limited/Unobtainable: Yes Allergies: Coded Allergies: CODEINE (Unverified Allergy, Unknown, 06/28/17) Subjective abd pain Objective Last 24 Hour Vital Signs Date Time Temp Pulse Resp B/P (MAP) Pulse Ox O2 Delivery O2 Flow Rate FiO2 07/10/17 04:00 98.5 97 18 133/75 95 Room Air 07/10/17 00:00 97.7 99 18 130/86 92 Room Air 07/09/17 20:00 97.9 93 20 151/93 92 Room Air 07/09/17 16:00 97.7 102 18 139/90 98 Room Air 07/09/17 12:00 98.1 86 19 145/95 97 Room Air 07/09/17 08:00 97.9 99 19 147/89 96 Room Air Height (Feet): 5 Height (Inches): 8.00 Weight (Pounds): 184 General Appearance: mild distress EENT: normal ENT inspection Neck: supple Cardiovascular: normal rate Respiratory/Chest: decreased breath sounds Abdomen: soft, hypoactive bowel sounds, tender Extremities: non-tender PADMINI BROWN Jul 10, 2017 07:55
--- NOTE | 2017-07-10 07:55 | General Progress Note ---
Assessment/Plan Problem List: (1) Alcohol abuse ICD Codes: F10.10 - Alcohol abuse, uncomplicated SNOMED: 58275168 (2) Opiate addiction ICD Codes: F11.20 - Opioid dependence, uncomplicated SNOMED: 95577767 (3) Pancreatitis ICD Codes: K85.90 - Acute pancreatitis without necrosis or infection, unspecified SNOMED: 65743681 Assessment/Plan clears IVF at 150 cc abd us banana bag pain control repeat labs Subjective ROS Limited/Unobtainable: Yes Allergies: Coded Allergies: CODEINE (Unverified Allergy, Unknown, 06/28/17) Subjective abd pain Objective Last 24 Hour Vital Signs Date Time Temp Pulse Resp B/P (MAP) Pulse Ox O2 Delivery O2 Flow Rate FiO2 07/10/17 04:00 98.5 97 18 133/75 95 Room Air 07/10/17 00:00 97.7 99 18 130/86 92 Room Air 07/09/17 20:00 97.9 93 20 151/93 92 Room Air 07/09/17 16:00 97.7 102 18 139/90 98 Room Air 07/09/17 12:00 98.1 86 19 145/95 97 Room Air 07/09/17 08:00 97.9 99 19 147/89 96 Room Air Height (Feet): 5 Height (Inches): 8.00 Weight (Pounds): 184 General Appearance: mild distress EENT: normal ENT inspection Neck: supple Cardiovascular: normal rate Respiratory/Chest: decreased breath sounds Abdomen: soft, hypoactive bowel sounds, tender Extremities: non-tender PADMINI BROWN Jul 10, 2017 07:55
--- NOTE | 2017-07-10 07:55 | General Progress Note ---
Assessment/Plan Problem List: (1) Alcohol abuse ICD Codes: F10.10 - Alcohol abuse, uncomplicated SNOMED: 83486626 (2) Opiate addiction ICD Codes: F11.20 - Opioid dependence, uncomplicated SNOMED: 94952888 (3) Pancreatitis ICD Codes: K85.90 - Acute pancreatitis without necrosis or infection, unspecified SNOMED: 35246534 Assessment/Plan clears IVF at 150 cc abd us banana bag pain control repeat labs Subjective ROS Limited/Unobtainable: Yes Allergies: Coded Allergies: CODEINE (Unverified Allergy, Unknown, 06/28/17) Subjective abd pain Objective Last 24 Hour Vital Signs Date Time Temp Pulse Resp B/P (MAP) Pulse Ox O2 Delivery O2 Flow Rate FiO2 07/10/17 04:00 98.5 97 18 133/75 95 Room Air 07/10/17 00:00 97.7 99 18 130/86 92 Room Air 07/09/17 20:00 97.9 93 20 151/93 92 Room Air 07/09/17 16:00 97.7 102 18 139/90 98 Room Air 07/09/17 12:00 98.1 86 19 145/95 97 Room Air 07/09/17 08:00 97.9 99 19 147/89 96 Room Air Height (Feet): 5 Height (Inches): 8.00 Weight (Pounds): 184 General Appearance: mild distress EENT: normal ENT inspection Neck: supple Cardiovascular: normal rate Respiratory/Chest: decreased breath sounds Abdomen: soft, hypoactive bowel sounds, tender Extremities: non-tender PADMINI BROWN Jul 10, 2017 07:55
[2017-07-10 08:29] VITALS: BP 141/88
[2017-07-10] MEDS: Pantoprazole Inj IV SCH (09:27)
[2017-07-10] MEDS: Folic Acid 1 MG, Magnesium Sulfate 2,000 MG, Multivitamin - 12 Injection 10 ML in NS w/... IV SCH (09:28)
[2017-07-10] MEDS: Thiamine 100mg in D5W 55ml IVPB SCH (09:28)
[2017-07-10] MEDS ORDERED: D5 1/2NS 1000ml IV ONE (09:35)
[2017-07-10] MEDS ORDERED: Tubing IV Secondary IV ONE (09:35)
[2017-07-10] MEDS: Heparin 5000 units/ml inj SUBQ SCH ×2 (09:42→22:01)
--- NOTE | 2017-07-10 11:31 | Diagnostic Imaging Report ---
ULTRASOUND OF THE ABDOMEN HISTORY: Abdominal pain. TECHNIQUE: Grayscale ultrasound imaging of the abdomen was performed. COMPARISON: No prior study is available for comparison. FINDINGS: The liver exhibits an echogenic parenchyma suggesting hepatic steatosis. The liver measures 18.2 cm in craniocaudal dimension. There is no intrahepatic biliary ductal dilatation. Routine color and pulsed Doppler images demonstrate normal hepatopetal flow in the main portal vein. The gallbladder is normal without cholelithiasis, wall thickening, or pericholecystic fluid. The common bile duct measures 4 mm. The head and body of the pancreas are normal. The pancreatic tail is obscured by gas. The spleen is normal in appearance and measures 10.5 cm. The right kidney measures 11.2 cm in length. The left kidney measures 11.3 cm in length. The kidneys appear normal without evidence of hydronephrosis. The visualized portions of the aorta and inferior vena cava appear normal. IMPRESSION: Hepatomegaly with increased liver echogenicity suggesting hepatic steatosis. Please correlate with clinical parameters and LFTs.
[2017-07-10 11:46] VITALS: BP 139/85
[2017-07-10 13:06] LABS: HEMATOCRIT 45.1 % (42.0-52.0); MEAN CORPUSCULAR VOLUME 99 FL (80-99); PLATELET COUNT 172 K/UL (150-450); RED BLOOD COUNT 4.55 M/UL (4.70-6.10); RED CELL DISTRIBUTION WIDTH 12.4 % (11.6-14.8); WHITE BLOOD COUNT 3.4 K/UL (4.8-10.8)
[2017-07-10 13:54] LABS: ALANINE AMINOTRANSFERASE 189 U/L (12-78); ALBUMIN 3.6 G/DL (3.4-5.0); ALBUMIN/GLOBULIN RATIO 0.8 (1.0-2.7); ALKALINE PHOSPHATASE 111 U/L (46-116); AMYLASE 210 U/L (25-115); ANION GAP 10 mmol/L (5-15); ASPARTATE AMINO TRANSFERASE 350 U/L (15-37); BILIRUBIN,TOTAL 0.5 MG/DL (0.2-1.0); BLOOD UREA NITROGEN 4 mg/dL (7-18); CALCIUM 8.2 MG/DL (8.5-10.1); CARBON DIOXIDE 30 MMOL/L (21-32); CHLORIDE 101 MMOL/L (98-107); CREATININE 0.7 MG/DL (0.55-1.30); POTASSIUM 3.8 MMOL/L (3.5-5.1); SODIUM 141 MMOL/L (136-145)
[2017-07-10 14:04] LABS: INR 0.9 (0.9-1.1)
[2017-07-10 15:54] VITALS: BP 144/87
[2017-07-10 21:00] VITALS: BP 136/91
--- NOTE | 2017-07-10 22:20 | Pulmonology Progress Note ---
Assessment/Plan Problems: (1) Pancreatitis (2) Vomiting (3) Opiate addiction (4) Alcohol abuse Assessment/Plan npo iv fluids GI evaluatio Subjective ROS Limited/Unobtainable: No Constitutional: Reports: no symptoms HEENT: Repors: no symptoms Respiratory: Reports: no symptoms Allergies: Coded Allergies: CODEINE (Unverified Allergy, Unknown, 06/28/17) Objective Last 24 Hour Vital Signs Date Time Temp Pulse Resp B/P (MAP) Pulse Ox O2 Delivery O2 Flow Rate FiO2 07/10/17 21:00 97.9 92 21 136/91 95 Room Air 07/10/17 15:54 98.4 88 20 144/87 95 Room Air 07/10/17 11:46 97.8 84 20 139/85 95 Room Air 07/10/17 08:29 98.4 86 20 141/88 95 Room Air 07/10/17 04:00 98.5 97 18 133/75 95 Room Air 07/10/17 00:00 97.7 99 18 130/86 92 Room Air Intake and Output 07/10/17 07/11/17 19:00 07:00 Intake Total 2612 ml Balance 2612 ml Intake Oral 1500 ml IV Total 1112 ml # Voids 4 General Appearance: WD/WN HEENT: normocephalic Respiratory/Chest: chest wall non-tender, lungs clear Cardiovascular: normal peripheral pulses, normal rate Abdomen: normal bowel sounds, soft, non tender Genitourinary: normal external genitalia Extremities: no cyanosis Skin: no ulcers 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 Laboratory Tests 07/10/17 12:00: White Blood Count 3.4L, Red Blood Count 4.55L, Hemoglobin 15.0, Hematocrit 45.1 , Mean Corpuscular Volume 99, Mean Corpuscular Hemoglobin 33.0H, Mean Corpuscular Hemoglobin Concent 33.3, Red Cell Distribution Width 12.4, Platelet Count 172, Mean Platelet Volume 6.4L, Neutrophils (%) (Auto) , Lymphocytes (%) ( Auto) , Monocytes (%) (Auto) , Eosinophils (%) (Auto) , Basophils (%) (Auto) , Differential Total Cells Counted 100, Neutrophils % (Manual) 28L, Lymphocytes % (Manual) 67H, Monocytes % (Manual) 4, Eosinophils % (Manual) 1, Basophils % ( Manual) 0, Band Neutrophils 0, Platelet Estimate Adequate, Platelet Morphology Normal, Prothrombin Time 9.5, Prothromb Time International Ratio 0.9, Sodium Level 141, Potassium Level 3.8, Chloride Level 101, Carbon Dioxide Level 30, Anion Gap 10, Blood Urea Nitrogen 4L, Creatinine 0.7, Estimat Glomerular Filtration Rate > 60, Glucose Level 117H, Calcium Level 8.2L, Total Bilirubin 0.5, Aspartate Amino Transf (AST/SGOT) 350H, Alanine Aminotransferase (ALT/SGPT ) 189H, Alkaline Phosphatase 111, Total Protein 8.0, Albumin 3.6, Globulin 4.4, Albumin/Globulin Ratio 0.8L, Amylase Level 210H, Lipase 2325H Current Medications Medications (Trade) Dose Ordered Sig/Ihsan Route PRN Reason Start Time Stop Time Status Last Admin Dose Admin Acetaminophen (Tylenol) 650 mg Q4H PRN ORAL fever 07/08/17 15:15 08/07/17 15:14 Al Hydroxide/Mg Hydroxide (Mylanta II) 30 ml Q6H PRN ORAL dyspepsia 07/08/17 15:15 08/07/17 15:14 Dextrose (Dextrose 50%) STAT PRN IV Hypoglycemia 07/08/17 15:15 08/07/17 15:14 Dextrose/Sodium Chloride 1,000 ml @ 150 mls/hr Q6H40M IV 07/09/17 16:30 08/08/17 16:29 07/10/17 18:35 Diphenhydramine HCl (Benadryl) 25 mg Q6H PRN ORAL Itching/Pruritis 07/08/17 15:15 08/07/17 15:14 Folic Acid 1 mg/ Magnesium Sulfate 2000 mg/ Multivitamins 10 ml/Sodium Chloride 1,014.2 ml @ 125 mls/ hr Q24H IV 07/09/17 09:30 08/08/17 09:29 07/10/17 09:28 Heparin Sodium (Porcine) (Heparin 5000 units/ml) 5,000 units EVERY 12 HOURS SUBQ 07/08/17 21:00 08/07/17 20:59 07/10/17 22:01 Lorazepam (Ativan 2mg/ml 1ml) 1 mg Q4H PRN IV agitation 07/08/17 15:15 07/15/17 15:14 07/10/17 18:36 Methadone HCl (Methadone HCl) 5 mg DAILY ORAL 07/09/17 10:00 07/16/17 09:59 07/10/17 09:27 Methadone HCl (Methadone HCl) 180 mg DAILY ORAL 07/09/17 10:00 07/16/17 09:59 07/10/17 09:26 Metoclopramide HCl (Reglan) 10 mg Q6H PRN IVP SEVERE NAUSEA 07/08/17 15:15 08/07/17 15:14 07/08/17 16:29 Nitroglycerin (Ntg) 0.4 mg Q5M X 3 DOSES PRN SL Prn Chest Pain 07/08/17 15:15 08/07/17 15:14 Ondansetron HCl (Zofran) 4 mg Q6H PRN IVP Nausea & Vomiting 07/08/17 15:15 08/07/17 15:14 Pantoprazole (Protonix) 40 mg DAILY IV 07/09/17 09:00 08/08/17 08:59 07/10/17 09:27 Polyethylene Glycol (Miralax) 17 gm HSPRN PRN ORAL Constipation 07/08/17 15:15 08/07/17 15:14 Promethazine HCl (Phenergan) 25 mg Q8H PRN IV refractory nausea 07/08/17 15:15 08/07/17 15:14 Temazepam (Restoril) 15 mg HSPRN PRN ORAL Insomnia 07/08/17 15:15 07/15/17 15:14 Thiamine HCl 100 mg/Dextrose 56 ml @ 112 mls/hr Q24H IVPB 07/09/17 09:30 08/08/17 09:29 07/10/17 09:28 DANYELL SHANKAR Jul 10, 2017 22:20
[2017-07-11] VITALS (7 sets, daily range): BP systolic 127–154; BP diastolic 75–102
[2017-07-11] MEDS: LORazepam Inj 2mg/ml 1ml IV PRN ×4 (00:52→18:32)
[2017-07-11] MEDS: D5 1/2NS 1,000 ML IV SCH ×4 (01:53→21:50)
[2017-07-11 08:25] LABS: HEMATOCRIT 47.5 % (42.0-52.0); HEMOGLOBIN 15.8 G/DL (14.2-18.0); MEAN CORPUSCULAR VOLUME 99 FL (80-99); PLATELET COUNT 138 K/UL (150-450); RED BLOOD COUNT 4.79 M/UL (4.70-6.10); RED CELL DISTRIBUTION WIDTH 12.5 % (11.6-14.8); WHITE BLOOD COUNT 3.3 K/UL (4.8-10.8)
[2017-07-11 08:38] LABS: INR 0.9 (0.9-1.1)
[2017-07-11 09:01] LABS: ALANINE AMINOTRANSFERASE 170 U/L (12-78); ALBUMIN 3.6 G/DL (3.4-5.0); ALBUMIN/GLOBULIN RATIO 0.9 (1.0-2.7); ALKALINE PHOSPHATASE 114 U/L (46-116); AMYLASE 230 U/L (25-115); ANION GAP 9 mmol/L (5-15); ASPARTATE AMINO TRANSFERASE 289 U/L (15-37); BILIRUBIN,TOTAL 0.5 MG/DL (0.2-1.0); BLOOD UREA NITROGEN 5 mg/dL (7-18); CALCIUM 8.4 MG/DL (8.5-10.1); CARBON DIOXIDE 32 MMOL/L (21-32); CHLORIDE 98 MMOL/L (98-107); CREATININE 0.7 MG/DL (0.55-1.30); POTASSIUM 3.3 MMOL/L (3.5-5.1); SODIUM 139 MMOL/L (136-145)
[2017-07-11] MEDS: Pantoprazole Inj IV SCH (09:32)
[2017-07-11] MEDS: Heparin 5000 units/ml inj SUBQ SCH ×2 (09:36→20:03)
[2017-07-11] MEDS: Thiamine 100mg in D5W 55ml IVPB SCH (09:50)
--- NOTE | 2017-07-11 10:27 | GI Progress Note ---
Assessment/Plan Problems: (1) Alcohol abuse ICD Codes: F10.10 - Alcohol abuse, uncomplicated SNOMED: 07079407 (2) Vomiting ICD Codes: R11.10 - Vomiting, unspecified SNOMED: 926343975 Qualifiers: Qualified Codes: R11.2 - Nausea with vomiting, unspecified (3) Pancreatitis ICD Codes: K85.90 - Acute pancreatitis without necrosis or infection, unspecified SNOMED: 56084422 (4) Opiate addiction ICD Codes: F11.20 - Opioid dependence, uncomplicated SNOMED: 80329554 Status: unchanged Status Narrative Discussed with Dr. Martinez. Assessment/Plan low fat soft trial IVF @ 150cc abd us banana bag pain control repeat labs Subjective Subjective abdominal pain improved 12/20 Objective Last 24 Hour Vital Signs Date Time Temp Pulse Resp B/P (MAP) Pulse Ox O2 Delivery O2 Flow Rate FiO2 07/11/17 08:00 97.7 96 18 130/98 97 Room Air 07/11/17 04:00 97.3 87 18 131/88 94 Room Air 07/11/17 00:00 97.7 93 20 134/92 93 Room Air 07/10/17 21:00 97.9 92 21 136/91 95 Room Air 07/10/17 15:54 98.4 88 20 144/87 95 Room Air 07/10/17 11:46 97.8 84 20 139/85 95 Room Air Laboratory Tests Test 07/10/17 12:00 07/11/17 06:55 White Blood Count 3.4 K/UL (4.8-10.8) L 3.3 K/UL (4.8-10.8) L Red Blood Count 4.55 M/UL (4.70-6.10) L 4.79 M/UL (4.70-6.10) Hemoglobin 15.0 G/DL (14.2-18.0) 15.8 G/DL (14.2-18.0) Hematocrit 45.1 % (42.0-52.0) 47.5 % (42.0-52.0) Mean Corpuscular Volume 99 FL (80-99) 99 FL (80-99) Mean Corpuscular Hemoglobin 33.0 PG (27.0-31.0) H 33.0 PG (27.0-31.0) H Mean Corpuscular Hemoglobin Concent 33.3 G/DL (32.0-36.0) 33.3 G/DL (32.0-36.0) Red Cell Distribution Width 12.4 % (11.6-14.8) 12.5 % (11.6-14.8) Platelet Count 172 K/UL (150-450) 138 K/UL (150-450) L Mean Platelet Volume 6.4 FL (6.5-10.1) L 7.8 FL (6.5-10.1) Neutrophils (%) (Auto) % (45.0-75.0) % (45.0-75.0) Lymphocytes (%) (Auto) % (20.0-45.0) % (20.0-45.0) Monocytes (%) (Auto) % (1.0-10.0) % (1.0-10.0) Eosinophils (%) (Auto) % (0.0-3.0) % (0.0-3.0) Basophils (%) (Auto) % (0.0-2.0) % (0.0-2.0) Differential Total Cells Counted 100 100 Neutrophils % (Manual) 28 % (45-75) L 29 % (45-75) L Lymphocytes % (Manual) 67 % (20-45) H 67 % (20-45) H Monocytes % (Manual) 4 % (1-10) 4 % (1-10) Eosinophils % (Manual) 1 % (0-3) 0 % (0-3) Basophils % (Manual) 0 % (0-2) 0 % (0-2) Band Neutrophils 0 % (0-8) 0 % (0-8) Platelet Estimate Adequate Decreased L Platelet Morphology Normal Normal Prothrombin Time 9.5 SEC (9.30-11.50) 9.5 SEC (9.30-11.50) Prothromb Time International Ratio 0.9 (0.9-1.1) 0.9 (0.9-1.1) Sodium Level 141 MMOL/L (136-145) 139 MMOL/L (136-145) Potassium Level 3.8 MMOL/L (3.5-5.1) 3.3 MMOL/L (3.5-5.1) L Chloride Level 101 MMOL/L (98-107) 98 MMOL/L (98-107) Carbon Dioxide Level 30 MMOL/L (21-32) 32 MMOL/L (21-32) Anion Gap 10 mmol/L (5-15) 9 mmol/L (5-15) Blood Urea Nitrogen 4 mg/dL (7-18) L 5 mg/dL (7-18) L Creatinine 0.7 MG/DL (0.55-1.30) 0.7 MG/DL (0.55-1.30) Estimat Glomerular Filtration Rate > 60 mL/min (>60) > 60 mL/min (>60) Glucose Level 117 MG/DL (74-106) H 83 MG/DL (74-106) Calcium Level 8.2 MG/DL (8.5-10.1) L 8.4 MG/DL (8.5-10.1) L Total Bilirubin 0.5 MG/DL (0.2-1.0) 0.5 MG/DL (0.2-1.0) Aspartate Amino Transf (AST/SGOT) 350 U/L (15-37) H 289 U/L (15-37) H Alanine Aminotransferase (ALT/SGPT) 189 U/L (12-78) H 170 U/L (12-78) H Alkaline Phosphatase 111 U/L (46-116) 114 U/L (46-116) Total Protein 8.0 G/DL (6.4-8.2) 7.8 G/DL (6.4-8.2) Albumin 3.6 G/DL (3.4-5.0) 3.6 G/DL (3.4-5.0) Globulin 4.4 g/dL 4.2 g/dL Albumin/Globulin Ratio 0.8 (1.0-2.7) L 0.9 (1.0-2.7) L Amylase Level 210 U/L (25-115) H 230 U/L (25-115) H Lipase 2325 U/L (73-393) H 2288 U/L (73-393) H Red Blood Cell Morphology Normal Height (Feet): 5 Height (Inches): 8.00 Weight (Pounds): 184 General Appearance: WD/WN, no apparent distress, alert Cardiovascular: normal rate Respiratory/Chest: normal breath sounds, no respiratory distress Abdominal Exam: normal bowel sounds, non tender, soft Extremities: normal range of motion, non-tender Kizzy Cruz N.P. Jul 11, 2017 10:26
--- NOTE | 2017-07-11 10:27 | GI Progress Note ---
Assessment/Plan Problems: (1) Alcohol abuse ICD Codes: F10.10 - Alcohol abuse, uncomplicated SNOMED: 25318869 (2) Vomiting ICD Codes: R11.10 - Vomiting, unspecified SNOMED: 033322597 Qualifiers: Qualified Codes: R11.2 - Nausea with vomiting, unspecified (3) Pancreatitis ICD Codes: K85.90 - Acute pancreatitis without necrosis or infection, unspecified SNOMED: 02189738 (4) Opiate addiction ICD Codes: F11.20 - Opioid dependence, uncomplicated SNOMED: 60574127 Status: unchanged Status Narrative Discussed with Dr. Martinez. Assessment/Plan low fat soft trial IVF @ 150cc abd us banana bag pain control repeat labs Subjective Subjective abdominal pain improved 12/20 Objective Last 24 Hour Vital Signs Date Time Temp Pulse Resp B/P (MAP) Pulse Ox O2 Delivery O2 Flow Rate FiO2 07/11/17 08:00 97.7 96 18 130/98 97 Room Air 07/11/17 04:00 97.3 87 18 131/88 94 Room Air 07/11/17 00:00 97.7 93 20 134/92 93 Room Air 07/10/17 21:00 97.9 92 21 136/91 95 Room Air 07/10/17 15:54 98.4 88 20 144/87 95 Room Air 07/10/17 11:46 97.8 84 20 139/85 95 Room Air Laboratory Tests Test 07/10/17 12:00 07/11/17 06:55 White Blood Count 3.4 K/UL (4.8-10.8) L 3.3 K/UL (4.8-10.8) L Red Blood Count 4.55 M/UL (4.70-6.10) L 4.79 M/UL (4.70-6.10) Hemoglobin 15.0 G/DL (14.2-18.0) 15.8 G/DL (14.2-18.0) Hematocrit 45.1 % (42.0-52.0) 47.5 % (42.0-52.0) Mean Corpuscular Volume 99 FL (80-99) 99 FL (80-99) Mean Corpuscular Hemoglobin 33.0 PG (27.0-31.0) H 33.0 PG (27.0-31.0) H Mean Corpuscular Hemoglobin Concent 33.3 G/DL (32.0-36.0) 33.3 G/DL (32.0-36.0) Red Cell Distribution Width 12.4 % (11.6-14.8) 12.5 % (11.6-14.8) Platelet Count 172 K/UL (150-450) 138 K/UL (150-450) L Mean Platelet Volume 6.4 FL (6.5-10.1) L 7.8 FL (6.5-10.1) Neutrophils (%) (Auto) % (45.0-75.0) % (45.0-75.0) Lymphocytes (%) (Auto) % (20.0-45.0) % (20.0-45.0) Monocytes (%) (Auto) % (1.0-10.0) % (1.0-10.0) Eosinophils (%) (Auto) % (0.0-3.0) % (0.0-3.0) Basophils (%) (Auto) % (0.0-2.0) % (0.0-2.0) Differential Total Cells Counted 100 100 Neutrophils % (Manual) 28 % (45-75) L 29 % (45-75) L Lymphocytes % (Manual) 67 % (20-45) H 67 % (20-45) H Monocytes % (Manual) 4 % (1-10) 4 % (1-10) Eosinophils % (Manual) 1 % (0-3) 0 % (0-3) Basophils % (Manual) 0 % (0-2) 0 % (0-2) Band Neutrophils 0 % (0-8) 0 % (0-8) Platelet Estimate Adequate Decreased L Platelet Morphology Normal Normal Prothrombin Time 9.5 SEC (9.30-11.50) 9.5 SEC (9.30-11.50) Prothromb Time International Ratio 0.9 (0.9-1.1) 0.9 (0.9-1.1) Sodium Level 141 MMOL/L (136-145) 139 MMOL/L (136-145) Potassium Level 3.8 MMOL/L (3.5-5.1) 3.3 MMOL/L (3.5-5.1) L Chloride Level 101 MMOL/L (98-107) 98 MMOL/L (98-107) Carbon Dioxide Level 30 MMOL/L (21-32) 32 MMOL/L (21-32) Anion Gap 10 mmol/L (5-15) 9 mmol/L (5-15) Blood Urea Nitrogen 4 mg/dL (7-18) L 5 mg/dL (7-18) L Creatinine 0.7 MG/DL (0.55-1.30) 0.7 MG/DL (0.55-1.30) Estimat Glomerular Filtration Rate > 60 mL/min (>60) > 60 mL/min (>60) Glucose Level 117 MG/DL (74-106) H 83 MG/DL (74-106) Calcium Level 8.2 MG/DL (8.5-10.1) L 8.4 MG/DL (8.5-10.1) L Total Bilirubin 0.5 MG/DL (0.2-1.0) 0.5 MG/DL (0.2-1.0) Aspartate Amino Transf (AST/SGOT) 350 U/L (15-37) H 289 U/L (15-37) H Alanine Aminotransferase (ALT/SGPT) 189 U/L (12-78) H 170 U/L (12-78) H Alkaline Phosphatase 111 U/L (46-116) 114 U/L (46-116) Total Protein 8.0 G/DL (6.4-8.2) 7.8 G/DL (6.4-8.2) Albumin 3.6 G/DL (3.4-5.0) 3.6 G/DL (3.4-5.0) Globulin 4.4 g/dL 4.2 g/dL Albumin/Globulin Ratio 0.8 (1.0-2.7) L 0.9 (1.0-2.7) L Amylase Level 210 U/L (25-115) H 230 U/L (25-115) H Lipase 2325 U/L (73-393) H 2288 U/L (73-393) H Red Blood Cell Morphology Normal Height (Feet): 5 Height (Inches): 8.00 Weight (Pounds): 184 General Appearance: WD/WN, no apparent distress, alert Cardiovascular: normal rate Respiratory/Chest: normal breath sounds, no respiratory distress Abdominal Exam: normal bowel sounds, non tender, soft Extremities: normal range of motion, non-tender Kizzy Cruz N.P. Jul 11, 2017 10:26
--- NOTE | 2017-07-11 10:27 | GI Progress Note ---
Assessment/Plan Problems: (1) Alcohol abuse ICD Codes: F10.10 - Alcohol abuse, uncomplicated SNOMED: 26187257 (2) Vomiting ICD Codes: R11.10 - Vomiting, unspecified SNOMED: 020241028 Qualifiers: Qualified Codes: R11.2 - Nausea with vomiting, unspecified (3) Pancreatitis ICD Codes: K85.90 - Acute pancreatitis without necrosis or infection, unspecified SNOMED: 12649940 (4) Opiate addiction ICD Codes: F11.20 - Opioid dependence, uncomplicated SNOMED: 64416887 Status: unchanged Status Narrative Discussed with Dr. Martinez. Assessment/Plan low fat soft trial IVF @ 150cc abd us banana bag pain control repeat labs Subjective Subjective abdominal pain improved 12/20 Objective Last 24 Hour Vital Signs Date Time Temp Pulse Resp B/P (MAP) Pulse Ox O2 Delivery O2 Flow Rate FiO2 07/11/17 08:00 97.7 96 18 130/98 97 Room Air 07/11/17 04:00 97.3 87 18 131/88 94 Room Air 07/11/17 00:00 97.7 93 20 134/92 93 Room Air 07/10/17 21:00 97.9 92 21 136/91 95 Room Air 07/10/17 15:54 98.4 88 20 144/87 95 Room Air 07/10/17 11:46 97.8 84 20 139/85 95 Room Air Laboratory Tests Test 07/10/17 12:00 07/11/17 06:55 White Blood Count 3.4 K/UL (4.8-10.8) L 3.3 K/UL (4.8-10.8) L Red Blood Count 4.55 M/UL (4.70-6.10) L 4.79 M/UL (4.70-6.10) Hemoglobin 15.0 G/DL (14.2-18.0) 15.8 G/DL (14.2-18.0) Hematocrit 45.1 % (42.0-52.0) 47.5 % (42.0-52.0) Mean Corpuscular Volume 99 FL (80-99) 99 FL (80-99) Mean Corpuscular Hemoglobin 33.0 PG (27.0-31.0) H 33.0 PG (27.0-31.0) H Mean Corpuscular Hemoglobin Concent 33.3 G/DL (32.0-36.0) 33.3 G/DL (32.0-36.0) Red Cell Distribution Width 12.4 % (11.6-14.8) 12.5 % (11.6-14.8) Platelet Count 172 K/UL (150-450) 138 K/UL (150-450) L Mean Platelet Volume 6.4 FL (6.5-10.1) L 7.8 FL (6.5-10.1) Neutrophils (%) (Auto) % (45.0-75.0) % (45.0-75.0) Lymphocytes (%) (Auto) % (20.0-45.0) % (20.0-45.0) Monocytes (%) (Auto) % (1.0-10.0) % (1.0-10.0) Eosinophils (%) (Auto) % (0.0-3.0) % (0.0-3.0) Basophils (%) (Auto) % (0.0-2.0) % (0.0-2.0) Differential Total Cells Counted 100 100 Neutrophils % (Manual) 28 % (45-75) L 29 % (45-75) L Lymphocytes % (Manual) 67 % (20-45) H 67 % (20-45) H Monocytes % (Manual) 4 % (1-10) 4 % (1-10) Eosinophils % (Manual) 1 % (0-3) 0 % (0-3) Basophils % (Manual) 0 % (0-2) 0 % (0-2) Band Neutrophils 0 % (0-8) 0 % (0-8) Platelet Estimate Adequate Decreased L Platelet Morphology Normal Normal Prothrombin Time 9.5 SEC (9.30-11.50) 9.5 SEC (9.30-11.50) Prothromb Time International Ratio 0.9 (0.9-1.1) 0.9 (0.9-1.1) Sodium Level 141 MMOL/L (136-145) 139 MMOL/L (136-145) Potassium Level 3.8 MMOL/L (3.5-5.1) 3.3 MMOL/L (3.5-5.1) L Chloride Level 101 MMOL/L (98-107) 98 MMOL/L (98-107) Carbon Dioxide Level 30 MMOL/L (21-32) 32 MMOL/L (21-32) Anion Gap 10 mmol/L (5-15) 9 mmol/L (5-15) Blood Urea Nitrogen 4 mg/dL (7-18) L 5 mg/dL (7-18) L Creatinine 0.7 MG/DL (0.55-1.30) 0.7 MG/DL (0.55-1.30) Estimat Glomerular Filtration Rate > 60 mL/min (>60) > 60 mL/min (>60) Glucose Level 117 MG/DL (74-106) H 83 MG/DL (74-106) Calcium Level 8.2 MG/DL (8.5-10.1) L 8.4 MG/DL (8.5-10.1) L Total Bilirubin 0.5 MG/DL (0.2-1.0) 0.5 MG/DL (0.2-1.0) Aspartate Amino Transf (AST/SGOT) 350 U/L (15-37) H 289 U/L (15-37) H Alanine Aminotransferase (ALT/SGPT) 189 U/L (12-78) H 170 U/L (12-78) H Alkaline Phosphatase 111 U/L (46-116) 114 U/L (46-116) Total Protein 8.0 G/DL (6.4-8.2) 7.8 G/DL (6.4-8.2) Albumin 3.6 G/DL (3.4-5.0) 3.6 G/DL (3.4-5.0) Globulin 4.4 g/dL 4.2 g/dL Albumin/Globulin Ratio 0.8 (1.0-2.7) L 0.9 (1.0-2.7) L Amylase Level 210 U/L (25-115) H 230 U/L (25-115) H Lipase 2325 U/L (73-393) H 2288 U/L (73-393) H Red Blood Cell Morphology Normal Height (Feet): 5 Height (Inches): 8.00 Weight (Pounds): 184 General Appearance: WD/WN, no apparent distress, alert Cardiovascular: normal rate Respiratory/Chest: normal breath sounds, no respiratory distress Abdominal Exam: normal bowel sounds, non tender, soft Extremities: normal range of motion, non-tender Kizzy Cruz N.P. Jul 11, 2017 10:26
--- NOTE | 2017-07-11 12:25 | Diagnostic Imaging Report ---
Clinical Indication: Chest pain. Coughing blood Technique: IV administration nonionic contrast. Spiral acquisition obtained through the chest. Multiplanar reconstructions generated. Total dose length product 787 mGycm. CTDIvol(s) 8, 64, 19 mGy. Dose reduction achieved using automated exposure control Comparison: None Findings: The posterior left lower lobe, there is an 11 mm mass which demonstrates slightly irregular borders. No other mass demonstrated. Questionable focal area of reticular nodular opacity is seen in the posterior medial left lower lobe, images 28 through 30. Faint area of groundglass opacity is seen in the center of the right lower lobe on image 40, and in the inferior right upper lobe on image 32. Groundglass opacity and crowding of the bronchovascular markings are seen in the anterior right middle lobe. No effusions, congestion or infiltrates are demonstrated. No pericardial effusion. The heart size is normal. No mediastinal or hilar mass or adenopathy. The included thyroid is unremarkable. No axillary or chest wall mass or adenopathy. The esophagus is unremarkable. The liver is diffusely markedly hypoattenuating. The remaining upper abdominal viscera are unremarkable. Impression: 11 mm noncalcified left lower lobe mass. Appearance is nonspecific, malignancy not excludable. Due to its small size and location immediately deep to a rib, not likely amenable to percutaneous biopsy. Consider either short interval followup [address] or PET/CT for further evaluation Nonspecific faint small areas of groundglass opacity in the right lung, may indicate areas of acute inflammation or post inflammatory change, among other possibilities Questionable small focal area of reticulonodular opacity in the posterior medial right lower lobe, most likely postinflammatory if real Fatty liver The CT scanner at [facility] is accredited by the [employer] and the scans are performed using protocols designed to limit radiation exposure to as low as reasonably achievable to attain images of sufficient resolution adequate for diagnostic evaluation.
[2017-07-11] MEDS: Folic Acid 1 MG, Magnesium Sulfate 2,000 MG, Multivitamin - 12 Injection 10 ML in NS w/... IV SCH (12:30)
[2017-07-11] MEDS ORDERED: D5 1/2NS 1000ml IV ONE (14:57)
[2017-07-11] MEDS ORDERED: NS 500ML IV ONE (14:57)
--- NOTE | 2017-07-11 22:19 | Pulmonology Progress Note ---
Assessment/Plan Problems: (1) Pancreatitis (2) Alcohol abuse Assessment/Plan banana bag check electrolytes amylase and lipase becoming more stable Subjective ROS Limited/Unobtainable: No Allergies: Coded Allergies: CODEINE (Unverified Allergy, Unknown, 06/28/17) Objective Last 24 Hour Vital Signs Date Time Temp Pulse Resp B/P (MAP) Pulse Ox O2 Delivery O2 Flow Rate FiO2 07/11/17 19:19 97.0 82 20 146/92 91 Room Air 07/11/17 18:32 154/102 07/11/17 16:02 98.1 91 18 154/102 94 Room Air 07/11/17 13:50 143/99 07/11/17 12:00 98.1 93 19 143/99 98 Room Air 07/11/17 08:00 97.7 96 18 130/98 97 Room Air 07/11/17 04:00 97.3 87 18 131/88 94 Room Air 07/11/17 00:00 97.7 93 20 134/92 93 Room Air Intake and Output 07/11/17 07/12/17 19:00 07:00 Intake Total 990 ml 150 ml Output Total 1300 ml Balance -310 ml 150 ml Intake Oral 990 ml IV Total 150 ml Output Urine Total 1300 ml General Appearance: WD/WN HEENT: normocephalic, atraumatic Respiratory/Chest: chest wall non-tender, normal breath sounds Cardiovascular: normal rate, regular rhythm Abdomen: normal bowel sounds, non distended Extremities: no cyanosis Skin: no rash Neurologic/Psychiatric: abnormal gait Laboratory Tests 07/11/17 06:55: White Blood Count 3.3L, Red Blood Count 4.79, Hemoglobin 15.8, Hematocrit 47.5, Mean Corpuscular Volume 99, Mean Corpuscular Hemoglobin 33.0H, Mean Corpuscular Hemoglobin Concent 33.3, Red Cell Distribution Width 12.5, Platelet Count 138L, Mean Platelet Volume 7.8, Neutrophils (%) (Auto) , Lymphocytes (%) (Auto) , Monocytes (%) (Auto) , Eosinophils (%) (Auto) , Basophils (%) (Auto) , Differential Total Cells Counted 100, Neutrophils % (Manual) 29L, Lymphocytes % (Manual) 67H, Monocytes % (Manual) 4, Eosinophils % (Manual) 0, Basophils % ( Manual) 0, Band Neutrophils 0, Platelet Estimate DecreasedL, Platelet Morphology Normal, Red Blood Cell Morphology Normal, Prothrombin Time 9.5, Prothromb Time International Ratio 0.9, Sodium Level 139, Potassium Level 3.3L, Chloride Level 98, Carbon Dioxide Level 32, Anion Gap 9, Blood Urea Nitrogen 5L , Creatinine 0.7, Estimat Glomerular Filtration Rate > 60, Glucose Level 83, Calcium Level 8.4L, Total Bilirubin 0.5, Aspartate Amino Transf (AST/SGOT) 289H , Alanine Aminotransferase (ALT/SGPT) 170H, Alkaline Phosphatase 114, Total Protein 7.8, Albumin 3.6, Globulin 4.2, Albumin/Globulin Ratio 0.9L, Amylase Level 230H, Lipase 2288H 07/11/17 18:00: Urine Opiates Screen Negative, Urine Barbiturates Screen Negative, Phencyclidine (PCP) Screen Negative, Urine Amphetamines Screen Negative, Urine Benzodiazepines Screen Negative, Urine Cocaine Screen Negative, Urine Marijuana (THC) Screen Negative Current Medications Medications (Trade) Dose Ordered Sig/Ihsan Route PRN Reason Start Time Stop Time Status Last Admin Dose Admin Acetaminophen (Tylenol) 650 mg Q4H PRN ORAL fever 07/08/17 15:15 08/07/17 15:14 Al Hydroxide/Mg Hydroxide (Mylanta II) 30 ml Q6H PRN ORAL dyspepsia 07/08/17 15:15 08/07/17 15:14 Dextrose (Dextrose 50%) STAT PRN IV Hypoglycemia 07/08/17 15:15 08/07/17 15:14 Dextrose/Sodium Chloride 1,000 ml @ 150 mls/hr Q6H40M IV 07/09/17 16:30 08/08/17 16:29 07/11/17 15:17 Diphenhydramine HCl (Benadryl) 25 mg Q6H PRN ORAL Itching/Pruritis 07/08/17 15:15 08/07/17 15:14 Folic Acid 1 mg/ Magnesium Sulfate 2000 mg/ Multivitamins 10 ml/Sodium Chloride 1,014.2 ml @ 125 mls/ hr Q24H IV 07/09/17 09:30 08/08/17 09:29 07/11/17 12:30 Heparin Sodium (Porcine) (Heparin 5000 units/ml) 5,000 units EVERY 12 HOURS SUBQ 07/08/17 21:00 08/07/17 20:59 07/10/17 22:01 Lorazepam (Ativan 2mg/ml 1ml) 1 mg Q4H PRN IV agitation 07/08/17 15:15 07/15/17 15:14 07/11/17 18:32 Methadone HCl (Methadone HCl) 5 mg DAILY ORAL 07/09/17 10:00 07/16/17 09:59 07/11/17 10:00 Methadone HCl (Methadone HCl) 180 mg DAILY ORAL 07/09/17 10:00 07/16/17 09:59 07/11/17 09:59 Metoclopramide HCl (Reglan) 10 mg Q6H PRN IVP SEVERE NAUSEA 07/08/17 15:15 08/07/17 15:14 07/08/17 16:29 Nitroglycerin (Ntg) 0.4 mg Q5M X 3 DOSES PRN SL Prn Chest Pain 07/08/17 15:15 08/07/17 15:14 Ondansetron HCl (Zofran) 4 mg Q6H PRN IVP Nausea & Vomiting 07/08/17 15:15 08/07/17 15:14 07/11/17 09:32 Pantoprazole (Protonix) 40 mg DAILY IV 07/09/17 09:00 08/08/17 08:59 07/11/17 09:32 Pentoxifylline (TRENtal) 400 mg THREE TIMES A DAY ORAL 07/11/17 13:00 08/10/17 12:59 07/11/17 18:32 Polyethylene Glycol (Miralax) 17 gm HSPRN PRN ORAL Constipation 07/08/17 15:15 08/07/17 15:14 Promethazine HCl (Phenergan) 25 mg Q8H PRN IV refractory nausea 07/08/17 15:15 08/07/17 15:14 Temazepam (Restoril) 15 mg HSPRN PRN ORAL Insomnia 07/08/17 15:15 07/15/17 15:14 Thiamine HCl 100 mg/Dextrose 56 ml @ 112 mls/hr Q24H IVPB 07/09/17 09:30 08/08/17 09:29 07/11/17 09:50 DANYELL SHANKAR Jul 11, 2017 22:19
[2017-07-12] MEDS: LORazepam Inj 2mg/ml 1ml IV PRN ×5 (00:14→22:27)
[2017-07-12 04:00] VITALS: BP 134/75
[2017-07-12] MEDS: D5 1/2NS 1,000 ML IV SCH ×4 (05:01→21:15)
[2017-07-12 05:52] LABS: HEMATOCRIT 44.1 % (42.0-52.0); HEMOGLOBIN 14.6 G/DL (14.2-18.0); MEAN CORPUSCULAR VOLUME 98 FL (80-99); PLATELET COUNT 138 K/UL (150-450); RED BLOOD COUNT 4.51 M/UL (4.70-6.10); RED CELL DISTRIBUTION WIDTH 12.3 % (11.6-14.8); WHITE BLOOD COUNT 3.3 K/UL (4.8-10.8)
[2017-07-12 06:55] LABS: ALANINE AMINOTRANSFERASE 157 U/L (12-78); ALBUMIN 3.3 G/DL (3.4-5.0); ALBUMIN/GLOBULIN RATIO 0.8 (1.0-2.7); ALKALINE PHOSPHATASE 113 U/L (46-116); AMYLASE 268 U/L (25-115); ANION GAP 13 mmol/L (5-15); ASPARTATE AMINO TRANSFERASE 235 U/L (15-37); BILIRUBIN,TOTAL 0.4 MG/DL (0.2-1.0); BLOOD UREA NITROGEN 8 mg/dL (7-18); CALCIUM 8.4 MG/DL (8.5-10.1); CARBON DIOXIDE 27 MMOL/L (21-32); CHLORIDE 102 MMOL/L (98-107); CREATININE 0.8 MG/DL (0.55-1.30); POTASSIUM 3.7 MMOL/L (3.5-5.1); SODIUM 142 MMOL/L (136-145)
[2017-07-12 08:16] VITALS: BP 145/109
[2017-07-12] MEDS ORDERED: Thiamine HCl 100mg/ml 2 ml Inj ONE (08:19)
[2017-07-12] MEDS: Pantoprazole Inj IV SCH (08:26)
[2017-07-12] MEDS: Heparin 5000 units/ml inj SUBQ SCH ×3 (09:00→20:09)
[2017-07-12] MEDS: Thiamine 100mg in D5W 55ml IVPB SCH (09:58)
[2017-07-12] MEDS: Folic Acid 1 MG, Magnesium Sulfate 2,000 MG, Multivitamin - 12 Injection 10 ML in NS w/... IV SCH (09:58)
[2017-07-12 12:08] VITALS: BP 146/96
--- NOTE | 2017-07-12 12:56 | GI Progress Note ---
Assessment/Plan Problems: (1) Alcohol abuse ICD Codes: F10.10 - Alcohol abuse, uncomplicated SNOMED: 11154575 (2) Vomiting ICD Codes: R11.10 - Vomiting, unspecified SNOMED: 639242373 Qualifiers: Qualified Codes: R11.2 - Nausea with vomiting, unspecified (3) Pancreatitis ICD Codes: K85.90 - Acute pancreatitis without necrosis or infection, unspecified SNOMED: 01045945 (4) Opiate addiction ICD Codes: F11.20 - Opioid dependence, uncomplicated SNOMED: 03995585 Status: not improved, unchanged Status Narrative Discussed with Dr. Martinez. Assessment/Plan utox >> unremarkable rising lipase emesis x 1 this morning withdrawal tremors abdominal U/S reviewed >> Hepatomegaly with increased liver echogenicity suggesting hepatic steatosis. chest CT reviewed >> 11 mm noncalcified left lower lobe mass. Appearance is nonspecific, malignancy not excludable. Due to its small size and location immediately deep to arib, not likely amenable to percutaneous biopsy. Consider either short interval followup [address] or PET/CT for further evaluation revert to NPO + banana bag Librium prn ordered CT AP pain mgmt repeat labs Subjective Subjective abdominal pain present emesis x 1 this morning ETOH withdrawal tremors Objective Last 24 Hour Vital Signs Date Time Temp Pulse Resp B/P (MAP) Pulse Ox O2 Delivery O2 Flow Rate FiO2 07/12/17 12:46 148/82 07/12/17 12:08 98.2 82 20 146/96 96 Room Air 07/12/17 08:31 145/109 07/12/17 08:16 98.2 86 18 145/109 94 Nasal Cannula 07/12/17 04:00 98.1 84 20 134/75 94 Room Air 07/11/17 23:34 96.8 76 20 127/75 91 Room Air 07/11/17 19:19 97.0 82 20 146/92 91 Room Air 07/11/17 18:32 154/102 07/11/17 16:02 98.1 91 18 154/102 94 Room Air 07/11/17 13:50 143/99 Intake and Output 07/12/17 07/13/17 19:00 07:00 Intake Total 600 ml Output Total 1050 ml Balance -450 ml Intake Oral 600 ml Output Urine Total 1050 ml Laboratory Tests Test 07/11/17 18:00 07/12/17 04:50 Urine Opiates Screen Negative (NEGATIVE) Urine Barbiturates Screen Negative (NEGATIVE) Phencyclidine (PCP) Screen Negative (NEGATIVE) Urine Amphetamines Screen Negative (NEGATIVE) Urine Benzodiazepines Screen Negative (NEGATIVE) Urine Cocaine Screen Negative (NEGATIVE) Urine Marijuana (THC) Screen Negative (NEGATIVE) White Blood Count 3.3 K/UL (4.8-10.8) L Red Blood Count 4.51 M/UL (4.70-6.10) L Hemoglobin 14.6 G/DL (14.2-18.0) Hematocrit 44.1 % (42.0-52.0) Mean Corpuscular Volume 98 FL (80-99) Mean Corpuscular Hemoglobin 32.4 PG (27.0-31.0) H Mean Corpuscular Hemoglobin Concent 33.1 G/DL (32.0-36.0) Red Cell Distribution Width 12.3 % (11.6-14.8) Platelet Count 138 K/UL (150-450) L Mean Platelet Volume 6.8 FL (6.5-10.1) Neutrophils (%) (Auto) % (45.0-75.0) Lymphocytes (%) (Auto) % (20.0-45.0) Monocytes (%) (Auto) % (1.0-10.0) Eosinophils (%) (Auto) % (0.0-3.0) Basophils (%) (Auto) % (0.0-2.0) Differential Total Cells Counted 100 Neutrophils % (Manual) 43 % (45-75) L Lymphocytes % (Manual) 49 % (20-45) H Monocytes % (Manual) 5 % (1-10) Eosinophils % (Manual) 0 % (0-3) Basophils % (Manual) 2 % (0-2) Band Neutrophils 1 % (0-8) Platelet Estimate Decreased L Platelet Morphology Normal Sodium Level 142 MMOL/L (136-145) Potassium Level 3.7 MMOL/L (3.5-5.1) Chloride Level 102 MMOL/L (98-107) Carbon Dioxide Level 27 MMOL/L (21-32) Anion Gap 13 mmol/L (5-15) Blood Urea Nitrogen 8 mg/dL (7-18) Creatinine 0.8 MG/DL (0.55-1.30) Estimat Glomerular Filtration Rate > 60 mL/min (>60) Glucose Level 102 MG/DL (74-106) Calcium Level 8.4 MG/DL (8.5-10.1) L Total Bilirubin 0.4 MG/DL (0.2-1.0) Aspartate Amino Transf (AST/SGOT) 235 U/L (15-37) H Alanine Aminotransferase (ALT/SGPT) 157 U/L (12-78) H Alkaline Phosphatase 113 U/L (46-116) Total Protein 7.6 G/DL (6.4-8.2) Albumin 3.3 G/DL (3.4-5.0) L Globulin 4.3 g/dL Albumin/Globulin Ratio 0.8 (1.0-2.7) L Amylase Level 268 U/L (25-115) H Lipase 3327 U/L (73-393) H Height (Feet): 5 Height (Inches): 8.00 Weight (Pounds): 184 General Appearance: WD/WN, no apparent distress, alert Cardiovascular: normal rate Respiratory/Chest: normal breath sounds, no respiratory distress Abdominal Exam: normal bowel sounds, non tender, soft Extremities: normal range of motion, non-tender Kizzy Cruz N.P. Jul 12, 2017 12:56
--- NOTE | 2017-07-12 12:56 | GI Progress Note ---
Assessment/Plan Problems: (1) Alcohol abuse ICD Codes: F10.10 - Alcohol abuse, uncomplicated SNOMED: 68774091 (2) Vomiting ICD Codes: R11.10 - Vomiting, unspecified SNOMED: 780051010 Qualifiers: Qualified Codes: R11.2 - Nausea with vomiting, unspecified (3) Pancreatitis ICD Codes: K85.90 - Acute pancreatitis without necrosis or infection, unspecified SNOMED: 60561534 (4) Opiate addiction ICD Codes: F11.20 - Opioid dependence, uncomplicated SNOMED: 29840888 Status: not improved, unchanged Status Narrative Discussed with Dr. Martinez. Assessment/Plan utox >> unremarkable rising lipase emesis x 1 this morning withdrawal tremors abdominal U/S reviewed >> Hepatomegaly with increased liver echogenicity suggesting hepatic steatosis. chest CT reviewed >> 11 mm noncalcified left lower lobe mass. Appearance is nonspecific, malignancy not excludable. Due to its small size and location immediately deep to arib, not likely amenable to percutaneous biopsy. Consider either short interval followup [address] or PET/CT for further evaluation revert to NPO + banana bag Librium prn ordered CT AP pain mgmt repeat labs Subjective Subjective abdominal pain present emesis x 1 this morning ETOH withdrawal tremors Objective Last 24 Hour Vital Signs Date Time Temp Pulse Resp B/P (MAP) Pulse Ox O2 Delivery O2 Flow Rate FiO2 07/12/17 12:46 148/82 07/12/17 12:08 98.2 82 20 146/96 96 Room Air 07/12/17 08:31 145/109 07/12/17 08:16 98.2 86 18 145/109 94 Nasal Cannula 07/12/17 04:00 98.1 84 20 134/75 94 Room Air 07/11/17 23:34 96.8 76 20 127/75 91 Room Air 07/11/17 19:19 97.0 82 20 146/92 91 Room Air 07/11/17 18:32 154/102 07/11/17 16:02 98.1 91 18 154/102 94 Room Air 07/11/17 13:50 143/99 Intake and Output 07/12/17 07/13/17 19:00 07:00 Intake Total 600 ml Output Total 1050 ml Balance -450 ml Intake Oral 600 ml Output Urine Total 1050 ml Laboratory Tests Test 07/11/17 18:00 07/12/17 04:50 Urine Opiates Screen Negative (NEGATIVE) Urine Barbiturates Screen Negative (NEGATIVE) Phencyclidine (PCP) Screen Negative (NEGATIVE) Urine Amphetamines Screen Negative (NEGATIVE) Urine Benzodiazepines Screen Negative (NEGATIVE) Urine Cocaine Screen Negative (NEGATIVE) Urine Marijuana (THC) Screen Negative (NEGATIVE) White Blood Count 3.3 K/UL (4.8-10.8) L Red Blood Count 4.51 M/UL (4.70-6.10) L Hemoglobin 14.6 G/DL (14.2-18.0) Hematocrit 44.1 % (42.0-52.0) Mean Corpuscular Volume 98 FL (80-99) Mean Corpuscular Hemoglobin 32.4 PG (27.0-31.0) H Mean Corpuscular Hemoglobin Concent 33.1 G/DL (32.0-36.0) Red Cell Distribution Width 12.3 % (11.6-14.8) Platelet Count 138 K/UL (150-450) L Mean Platelet Volume 6.8 FL (6.5-10.1) Neutrophils (%) (Auto) % (45.0-75.0) Lymphocytes (%) (Auto) % (20.0-45.0) Monocytes (%) (Auto) % (1.0-10.0) Eosinophils (%) (Auto) % (0.0-3.0) Basophils (%) (Auto) % (0.0-2.0) Differential Total Cells Counted 100 Neutrophils % (Manual) 43 % (45-75) L Lymphocytes % (Manual) 49 % (20-45) H Monocytes % (Manual) 5 % (1-10) Eosinophils % (Manual) 0 % (0-3) Basophils % (Manual) 2 % (0-2) Band Neutrophils 1 % (0-8) Platelet Estimate Decreased L Platelet Morphology Normal Sodium Level 142 MMOL/L (136-145) Potassium Level 3.7 MMOL/L (3.5-5.1) Chloride Level 102 MMOL/L (98-107) Carbon Dioxide Level 27 MMOL/L (21-32) Anion Gap 13 mmol/L (5-15) Blood Urea Nitrogen 8 mg/dL (7-18) Creatinine 0.8 MG/DL (0.55-1.30) Estimat Glomerular Filtration Rate > 60 mL/min (>60) Glucose Level 102 MG/DL (74-106) Calcium Level 8.4 MG/DL (8.5-10.1) L Total Bilirubin 0.4 MG/DL (0.2-1.0) Aspartate Amino Transf (AST/SGOT) 235 U/L (15-37) H Alanine Aminotransferase (ALT/SGPT) 157 U/L (12-78) H Alkaline Phosphatase 113 U/L (46-116) Total Protein 7.6 G/DL (6.4-8.2) Albumin 3.3 G/DL (3.4-5.0) L Globulin 4.3 g/dL Albumin/Globulin Ratio 0.8 (1.0-2.7) L Amylase Level 268 U/L (25-115) H Lipase 3327 U/L (73-393) H Height (Feet): 5 Height (Inches): 8.00 Weight (Pounds): 184 General Appearance: WD/WN, no apparent distress, alert Cardiovascular: normal rate Respiratory/Chest: normal breath sounds, no respiratory distress Abdominal Exam: normal bowel sounds, non tender, soft Extremities: normal range of motion, non-tender Kizzy Cruz N.P. Jul 12, 2017 12:56
--- NOTE | 2017-07-12 12:56 | GI Progress Note ---
Assessment/Plan Problems: (1) Alcohol abuse ICD Codes: F10.10 - Alcohol abuse, uncomplicated SNOMED: 93127778 (2) Vomiting ICD Codes: R11.10 - Vomiting, unspecified SNOMED: 517612451 Qualifiers: Qualified Codes: R11.2 - Nausea with vomiting, unspecified (3) Pancreatitis ICD Codes: K85.90 - Acute pancreatitis without necrosis or infection, unspecified SNOMED: 76932284 (4) Opiate addiction ICD Codes: F11.20 - Opioid dependence, uncomplicated SNOMED: 21592591 Status: not improved, unchanged Status Narrative Discussed with Dr. Martinez. Assessment/Plan utox >> unremarkable rising lipase emesis x 1 this morning withdrawal tremors abdominal U/S reviewed >> Hepatomegaly with increased liver echogenicity suggesting hepatic steatosis. chest CT reviewed >> 11 mm noncalcified left lower lobe mass. Appearance is nonspecific, malignancy not excludable. Due to its small size and location immediately deep to arib, not likely amenable to percutaneous biopsy. Consider either short interval followup [address] or PET/CT for further evaluation revert to NPO + banana bag Librium prn ordered CT AP pain mgmt repeat labs Subjective Subjective abdominal pain present emesis x 1 this morning ETOH withdrawal tremors Objective Last 24 Hour Vital Signs Date Time Temp Pulse Resp B/P (MAP) Pulse Ox O2 Delivery O2 Flow Rate FiO2 07/12/17 12:46 148/82 07/12/17 12:08 98.2 82 20 146/96 96 Room Air 07/12/17 08:31 145/109 07/12/17 08:16 98.2 86 18 145/109 94 Nasal Cannula 07/12/17 04:00 98.1 84 20 134/75 94 Room Air 07/11/17 23:34 96.8 76 20 127/75 91 Room Air 07/11/17 19:19 97.0 82 20 146/92 91 Room Air 07/11/17 18:32 154/102 07/11/17 16:02 98.1 91 18 154/102 94 Room Air 07/11/17 13:50 143/99 Intake and Output 07/12/17 07/13/17 19:00 07:00 Intake Total 600 ml Output Total 1050 ml Balance -450 ml Intake Oral 600 ml Output Urine Total 1050 ml Laboratory Tests Test 07/11/17 18:00 07/12/17 04:50 Urine Opiates Screen Negative (NEGATIVE) Urine Barbiturates Screen Negative (NEGATIVE) Phencyclidine (PCP) Screen Negative (NEGATIVE) Urine Amphetamines Screen Negative (NEGATIVE) Urine Benzodiazepines Screen Negative (NEGATIVE) Urine Cocaine Screen Negative (NEGATIVE) Urine Marijuana (THC) Screen Negative (NEGATIVE) White Blood Count 3.3 K/UL (4.8-10.8) L Red Blood Count 4.51 M/UL (4.70-6.10) L Hemoglobin 14.6 G/DL (14.2-18.0) Hematocrit 44.1 % (42.0-52.0) Mean Corpuscular Volume 98 FL (80-99) Mean Corpuscular Hemoglobin 32.4 PG (27.0-31.0) H Mean Corpuscular Hemoglobin Concent 33.1 G/DL (32.0-36.0) Red Cell Distribution Width 12.3 % (11.6-14.8) Platelet Count 138 K/UL (150-450) L Mean Platelet Volume 6.8 FL (6.5-10.1) Neutrophils (%) (Auto) % (45.0-75.0) Lymphocytes (%) (Auto) % (20.0-45.0) Monocytes (%) (Auto) % (1.0-10.0) Eosinophils (%) (Auto) % (0.0-3.0) Basophils (%) (Auto) % (0.0-2.0) Differential Total Cells Counted 100 Neutrophils % (Manual) 43 % (45-75) L Lymphocytes % (Manual) 49 % (20-45) H Monocytes % (Manual) 5 % (1-10) Eosinophils % (Manual) 0 % (0-3) Basophils % (Manual) 2 % (0-2) Band Neutrophils 1 % (0-8) Platelet Estimate Decreased L Platelet Morphology Normal Sodium Level 142 MMOL/L (136-145) Potassium Level 3.7 MMOL/L (3.5-5.1) Chloride Level 102 MMOL/L (98-107) Carbon Dioxide Level 27 MMOL/L (21-32) Anion Gap 13 mmol/L (5-15) Blood Urea Nitrogen 8 mg/dL (7-18) Creatinine 0.8 MG/DL (0.55-1.30) Estimat Glomerular Filtration Rate > 60 mL/min (>60) Glucose Level 102 MG/DL (74-106) Calcium Level 8.4 MG/DL (8.5-10.1) L Total Bilirubin 0.4 MG/DL (0.2-1.0) Aspartate Amino Transf (AST/SGOT) 235 U/L (15-37) H Alanine Aminotransferase (ALT/SGPT) 157 U/L (12-78) H Alkaline Phosphatase 113 U/L (46-116) Total Protein 7.6 G/DL (6.4-8.2) Albumin 3.3 G/DL (3.4-5.0) L Globulin 4.3 g/dL Albumin/Globulin Ratio 0.8 (1.0-2.7) L Amylase Level 268 U/L (25-115) H Lipase 3327 U/L (73-393) H Height (Feet): 5 Height (Inches): 8.00 Weight (Pounds): 184 General Appearance: WD/WN, no apparent distress, alert Cardiovascular: normal rate Respiratory/Chest: normal breath sounds, no respiratory distress Abdominal Exam: normal bowel sounds, non tender, soft Extremities: normal range of motion, non-tender Kizzy Cruz N.P. Jul 12, 2017 12:56
--- NOTE | 2017-07-12 15:04 | Diagnostic Imaging Report ---
Indication: Abdominal pain Technique: Continuous helical transaxial imaging of the abdomen and pelvis was obtained from the lung bases to the pubic symphysis during intravenous contrast administration. Coronal 2-D reformats were also obtained. Study obtained in a Siemens sensation [address] Total Dose length Product (DLP): [address] Dose Index Volume (CTDIvol): 14, 2.15 mGy Comparison: None Findings: There is a partially visualized nodular density at the left lung base requiring further evaluation. There is moderate low-attenuation of the liver which is also enlarged having a craniocaudal measurement of about 20 cm. The spleen is normal in size. There is no adrenal mass. Gallbladder is unremarkable. The pancreas is unremarkable. There is no biliary ductal dilatation identified. Moderate distention of the colon due to fecal material noted. Urinary bladder is unremarkable. There is no free fluid or free air identified. Normal appendix noted. Impression: Hepatomegaly with fatty infiltration. Significant retention of fecal material within the colon. Partially imaged nodular density left lung base. Further evaluation with CT chest is recommended. The CT scanner at [facility] is accredited by the [employer] and the scans are performed using dose optimization techniques as appropriate to a performed exam including Automatic Exposure control.
[2017-07-12] MEDS: chlordiazePOXIDE 25mg Cap ORAL PRN (15:30)
[2017-07-12 16:03] VITALS: BP 146/102
[2017-07-12] MEDS ORDERED: D5 1/2NS 1000ml IV ONE (16:29)
[2017-07-12 20:00] VITALS: BP 158/57
[2017-07-13] VITALS: BP 155/57
[2017-07-13] MEDS: chlordiazePOXIDE 25mg Cap ORAL PRN (00:34)
[2017-07-13 04:00] VITALS: BP 140/90
[2017-07-13] MEDS: D5 1/2NS 1,000 ML IV SCH ×2 (05:29→13:50)
[2017-07-13 06:23] LABS: EOSINOPHILS % (AUTO) 0.5 % (0.0-3.0); HEMATOCRIT 47.9 % (42.0-52.0); HEMOGLOBIN 16.3 G/DL (14.2-18.0); LYMPHOCYTES % (AUTO) 25.8 % (20.0-45.0); MEAN CORPUSCULAR VOLUME 99 FL (80-99); MONOCYTES % (AUTO) 7.9 % (1.0-10.0); NEUTROPHILS % (AUTO) 64.9 % (45.0-75.0); PLATELET COUNT 135 K/UL (150-450); RED BLOOD COUNT 4.86 M/UL (4.70-6.10); RED CELL DISTRIBUTION WIDTH 12.4 % (11.6-14.8); WHITE BLOOD COUNT 4.9 K/UL (4.8-10.8)
[2017-07-13] MEDS: LORazepam Inj 2mg/ml 1ml IV PRN (06:40)
[2017-07-13 07:12] LABS: AMYLASE 301 U/L (25-115); ANION GAP 11 mmol/L (5-15); BLOOD UREA NITROGEN 4 mg/dL (7-18); CALCIUM 9.8 MG/DL (8.5-10.1); CARBON DIOXIDE 29 MMOL/L (21-32); CHLORIDE 101 MMOL/L (98-107); CREATININE 0.6 MG/DL (0.55-1.30); POTASSIUM 4.4 MMOL/L (3.5-5.1); SODIUM 141 MMOL/L (136-145)
[2017-07-13 08:00] VITALS: BP 119/68
[2017-07-13] MEDS: Heparin 5000 units/ml inj SUBQ SCH ×2 (09:00→21:00)
[2017-07-13] MEDS: Folic Acid 1 MG, Magnesium Sulfate 2,000 MG, Multivitamin - 12 Injection 10 ML in NS w/... IV SCH (10:18)
[2017-07-13] MEDS: Pantoprazole Inj IV SCH (10:18)
[2017-07-13] MEDS: Thiamine 100mg in D5W 55ml IVPB SCH (10:19)
--- NOTE | 2017-07-13 11:12 | GI Progress Note ---
Assessment/Plan Problems: (1) Alcohol abuse ICD Codes: F10.10 - Alcohol abuse, uncomplicated SNOMED: 18501641 (2) Vomiting ICD Codes: R11.10 - Vomiting, unspecified SNOMED: 750040531 Qualifiers: Qualified Codes: R11.2 - Nausea with vomiting, unspecified (3) Pancreatitis ICD Codes: K85.90 - Acute pancreatitis without necrosis or infection, unspecified SNOMED: 31222894 (4) Opiate addiction ICD Codes: F11.20 - Opioid dependence, uncomplicated SNOMED: 34403674 Status: unchanged Status Narrative Discussed with Dr. Martinez. Assessment/Plan utox >> unremarkable, noted by staff possible urine may be from girlfriend >> will repeat utox rising lipase abdominal U/S reviewed >> Hepatomegaly with increased liver echogenicity suggesting hepatic steatosis. AP/chest CT reviewed >> 11 mm noncalcified left lower lobe mass. Appearance is nonspecific, malignancy not excludable. Due to its small size and location immediately deep to arib, not likely amenable to percutaneous biopsy. Consider either short interval followup [address] or PET/CT for further evaluation trial CLD Librium prn pain mgmt colace repeat labs Subjective Subjective abdominal pain 6/10 no emesis last night ETOH withdrawal tremors improved Objective Last 24 Hour Vital Signs Date Time Temp Pulse Resp B/P (MAP) Pulse Ox O2 Delivery O2 Flow Rate FiO2 07/13/17 10:17 119/68 07/13/17 08:00 97.7 83 12 119/68 92 07/13/17 04:00 97.2 94 20 140/90 96 Room Air 07/13/17 00:00 98.4 94 20 155/57 97 Room Air 07/12/17 20:00 99.0 88 20 158/57 97 Room Air 07/12/17 18:39 146/102 07/12/17 16:03 98.0 88 20 146/102 95 Room Air 07/12/17 12:46 148/82 07/12/17 12:08 98.2 82 20 146/96 96 Room Air Intake and Output 07/13/17 07/14/17 19:00 07:00 # Bowel Movements 1 Laboratory Tests Test 07/13/17 03:30 White Blood Count 4.9 K/UL (4.8-10.8) Red Blood Count 4.86 M/UL (4.70-6.10) Hemoglobin 16.3 G/DL (14.2-18.0) Hematocrit 47.9 % (42.0-52.0) Mean Corpuscular Volume 99 FL (80-99) Mean Corpuscular Hemoglobin 33.6 PG (27.0-31.0) H Mean Corpuscular Hemoglobin Concent 34.1 G/DL (32.0-36.0) Red Cell Distribution Width 12.4 % (11.6-14.8) Platelet Count 135 K/UL (150-450) L Mean Platelet Volume 7.9 FL (6.5-10.1) Neutrophils (%) (Auto) 64.9 % (45.0-75.0) Lymphocytes (%) (Auto) 25.8 % (20.0-45.0) Monocytes (%) (Auto) 7.9 % (1.0-10.0) Eosinophils (%) (Auto) 0.5 % (0.0-3.0) Basophils (%) (Auto) 1.0 % (0.0-2.0) Sodium Level 141 MMOL/L (136-145) Potassium Level 4.4 MMOL/L (3.5-5.1) Chloride Level 101 MMOL/L (98-107) Carbon Dioxide Level 29 MMOL/L (21-32) Anion Gap 11 mmol/L (5-15) Blood Urea Nitrogen 4 mg/dL (7-18) L Creatinine 0.6 MG/DL (0.55-1.30) Estimat Glomerular Filtration Rate > 60 mL/min (>60) Glucose Level 86 MG/DL (74-106) Calcium Level 9.8 MG/DL (8.5-10.1) Amylase Level 301 U/L (25-115) H Lipase 3142 U/L (73-393) H Height (Feet): 5 Height (Inches): 8.00 Weight (Pounds): 184 General Appearance: WD/WN, no apparent distress, alert Cardiovascular: normal rate Respiratory/Chest: normal breath sounds, no respiratory distress Abdominal Exam: normal bowel sounds, non tender, soft Extremities: normal range of motion, non-tender Kizzy Cruz N.Margarita Jul 13, 2017 11:12
--- NOTE | 2017-07-13 11:12 | GI Progress Note ---
Assessment/Plan Problems: (1) Alcohol abuse ICD Codes: F10.10 - Alcohol abuse, uncomplicated SNOMED: 45698292 (2) Vomiting ICD Codes: R11.10 - Vomiting, unspecified SNOMED: 735782257 Qualifiers: Qualified Codes: R11.2 - Nausea with vomiting, unspecified (3) Pancreatitis ICD Codes: K85.90 - Acute pancreatitis without necrosis or infection, unspecified SNOMED: 05239690 (4) Opiate addiction ICD Codes: F11.20 - Opioid dependence, uncomplicated SNOMED: 68545301 Status: unchanged Status Narrative Discussed with Dr. Martinez. Assessment/Plan utox >> unremarkable, noted by staff possible urine may be from girlfriend >> will repeat utox rising lipase abdominal U/S reviewed >> Hepatomegaly with increased liver echogenicity suggesting hepatic steatosis. AP/chest CT reviewed >> 11 mm noncalcified left lower lobe mass. Appearance is nonspecific, malignancy not excludable. Due to its small size and location immediately deep to arib, not likely amenable to percutaneous biopsy. Consider either short interval followup [address] or PET/CT for further evaluation trial CLD Librium prn pain mgmt colace repeat labs Subjective Subjective abdominal pain 6/10 no emesis last night ETOH withdrawal tremors improved Objective Last 24 Hour Vital Signs Date Time Temp Pulse Resp B/P (MAP) Pulse Ox O2 Delivery O2 Flow Rate FiO2 07/13/17 10:17 119/68 07/13/17 08:00 97.7 83 12 119/68 92 07/13/17 04:00 97.2 94 20 140/90 96 Room Air 07/13/17 00:00 98.4 94 20 155/57 97 Room Air 07/12/17 20:00 99.0 88 20 158/57 97 Room Air 07/12/17 18:39 146/102 07/12/17 16:03 98.0 88 20 146/102 95 Room Air 07/12/17 12:46 148/82 07/12/17 12:08 98.2 82 20 146/96 96 Room Air Intake and Output 07/13/17 07/14/17 19:00 07:00 # Bowel Movements 1 Laboratory Tests Test 07/13/17 03:30 White Blood Count 4.9 K/UL (4.8-10.8) Red Blood Count 4.86 M/UL (4.70-6.10) Hemoglobin 16.3 G/DL (14.2-18.0) Hematocrit 47.9 % (42.0-52.0) Mean Corpuscular Volume 99 FL (80-99) Mean Corpuscular Hemoglobin 33.6 PG (27.0-31.0) H Mean Corpuscular Hemoglobin Concent 34.1 G/DL (32.0-36.0) Red Cell Distribution Width 12.4 % (11.6-14.8) Platelet Count 135 K/UL (150-450) L Mean Platelet Volume 7.9 FL (6.5-10.1) Neutrophils (%) (Auto) 64.9 % (45.0-75.0) Lymphocytes (%) (Auto) 25.8 % (20.0-45.0) Monocytes (%) (Auto) 7.9 % (1.0-10.0) Eosinophils (%) (Auto) 0.5 % (0.0-3.0) Basophils (%) (Auto) 1.0 % (0.0-2.0) Sodium Level 141 MMOL/L (136-145) Potassium Level 4.4 MMOL/L (3.5-5.1) Chloride Level 101 MMOL/L (98-107) Carbon Dioxide Level 29 MMOL/L (21-32) Anion Gap 11 mmol/L (5-15) Blood Urea Nitrogen 4 mg/dL (7-18) L Creatinine 0.6 MG/DL (0.55-1.30) Estimat Glomerular Filtration Rate > 60 mL/min (>60) Glucose Level 86 MG/DL (74-106) Calcium Level 9.8 MG/DL (8.5-10.1) Amylase Level 301 U/L (25-115) H Lipase 3142 U/L (73-393) H Height (Feet): 5 Height (Inches): 8.00 Weight (Pounds): 184 General Appearance: WD/WN, no apparent distress, alert Cardiovascular: normal rate Respiratory/Chest: normal breath sounds, no respiratory distress Abdominal Exam: normal bowel sounds, non tender, soft Extremities: normal range of motion, non-tender Kizzy Cruz N.Margarita Jul 13, 2017 11:12
--- NOTE | 2017-07-13 11:12 | GI Progress Note ---
Assessment/Plan Problems: (1) Alcohol abuse ICD Codes: F10.10 - Alcohol abuse, uncomplicated SNOMED: 73260740 (2) Vomiting ICD Codes: R11.10 - Vomiting, unspecified SNOMED: 120024040 Qualifiers: Qualified Codes: R11.2 - Nausea with vomiting, unspecified (3) Pancreatitis ICD Codes: K85.90 - Acute pancreatitis without necrosis or infection, unspecified SNOMED: 42295645 (4) Opiate addiction ICD Codes: F11.20 - Opioid dependence, uncomplicated SNOMED: 02972349 Status: unchanged Status Narrative Discussed with Dr. Martinez. Assessment/Plan utox >> unremarkable, noted by staff possible urine may be from girlfriend >> will repeat utox rising lipase abdominal U/S reviewed >> Hepatomegaly with increased liver echogenicity suggesting hepatic steatosis. AP/chest CT reviewed >> 11 mm noncalcified left lower lobe mass. Appearance is nonspecific, malignancy not excludable. Due to its small size and location immediately deep to arib, not likely amenable to percutaneous biopsy. Consider either short interval followup [address] or PET/CT for further evaluation trial CLD Librium prn pain mgmt colace repeat labs Subjective Subjective abdominal pain 6/10 no emesis last night ETOH withdrawal tremors improved Objective Last 24 Hour Vital Signs Date Time Temp Pulse Resp B/P (MAP) Pulse Ox O2 Delivery O2 Flow Rate FiO2 07/13/17 10:17 119/68 07/13/17 08:00 97.7 83 12 119/68 92 07/13/17 04:00 97.2 94 20 140/90 96 Room Air 07/13/17 00:00 98.4 94 20 155/57 97 Room Air 07/12/17 20:00 99.0 88 20 158/57 97 Room Air 07/12/17 18:39 146/102 07/12/17 16:03 98.0 88 20 146/102 95 Room Air 07/12/17 12:46 148/82 07/12/17 12:08 98.2 82 20 146/96 96 Room Air Intake and Output 07/13/17 07/14/17 19:00 07:00 # Bowel Movements 1 Laboratory Tests Test 07/13/17 03:30 White Blood Count 4.9 K/UL (4.8-10.8) Red Blood Count 4.86 M/UL (4.70-6.10) Hemoglobin 16.3 G/DL (14.2-18.0) Hematocrit 47.9 % (42.0-52.0) Mean Corpuscular Volume 99 FL (80-99) Mean Corpuscular Hemoglobin 33.6 PG (27.0-31.0) H Mean Corpuscular Hemoglobin Concent 34.1 G/DL (32.0-36.0) Red Cell Distribution Width 12.4 % (11.6-14.8) Platelet Count 135 K/UL (150-450) L Mean Platelet Volume 7.9 FL (6.5-10.1) Neutrophils (%) (Auto) 64.9 % (45.0-75.0) Lymphocytes (%) (Auto) 25.8 % (20.0-45.0) Monocytes (%) (Auto) 7.9 % (1.0-10.0) Eosinophils (%) (Auto) 0.5 % (0.0-3.0) Basophils (%) (Auto) 1.0 % (0.0-2.0) Sodium Level 141 MMOL/L (136-145) Potassium Level 4.4 MMOL/L (3.5-5.1) Chloride Level 101 MMOL/L (98-107) Carbon Dioxide Level 29 MMOL/L (21-32) Anion Gap 11 mmol/L (5-15) Blood Urea Nitrogen 4 mg/dL (7-18) L Creatinine 0.6 MG/DL (0.55-1.30) Estimat Glomerular Filtration Rate > 60 mL/min (>60) Glucose Level 86 MG/DL (74-106) Calcium Level 9.8 MG/DL (8.5-10.1) Amylase Level 301 U/L (25-115) H Lipase 3142 U/L (73-393) H Height (Feet): 5 Height (Inches): 8.00 Weight (Pounds): 184 General Appearance: WD/WN, no apparent distress, alert Cardiovascular: normal rate Respiratory/Chest: normal breath sounds, no respiratory distress Abdominal Exam: normal bowel sounds, non tender, soft Extremities: normal range of motion, non-tender Kizzy Cruz N.Margarita Jul 13, 2017 11:12
[2017-07-13 12:00] VITALS: BP 150/97
[2017-07-13] MEDS: Docusate 100mg cap ORAL SCH ×2 (13:00→18:00)
[2017-07-13 16:34] VITALS: BP 129/86
--- NOTE | 2017-07-13 16:52 | Pulmonology Progress Note ---
Assessment/Plan Problems: (1) Pancreatitis (2) Alcohol abuse Assessment/Plan banana bag check electrolytes amylase and lipase becoming more stable f/u by GI check amylase and lipse Subjective ROS Limited/Unobtainable: No Constitutional: Reports: no symptoms HEENT: Repors: no symptoms Respiratory: Reports: no symptoms Allergies: Coded Allergies: CODEINE (Unverified Allergy, Unknown, 06/28/17) Objective Last 24 Hour Vital Signs Date Time Temp Pulse Resp B/P (MAP) Pulse Ox O2 Delivery O2 Flow Rate FiO2 07/13/17 16:34 97.3 75 14 129/86 97 Room Air 07/13/17 13:07 150/97 07/13/17 12:00 97.0 89 12 150/97 97 Room Air 07/13/17 10:17 119/68 07/13/17 08:00 97.7 83 12 119/68 92 07/13/17 04:00 97.2 94 20 140/90 96 Room Air 07/13/17 00:00 98.4 94 20 155/57 97 Room Air 07/12/17 20:00 99.0 88 20 158/57 97 Room Air 07/12/17 18:39 146/102 Intake and Output 07/13/17 07/14/17 19:00 07:00 # Bowel Movements 1 General Appearance: WD/WN HEENT: normocephalic, atraumatic Respiratory/Chest: chest wall non-tender, lungs clear Cardiovascular: normal peripheral pulses, normal rate Abdomen: normal bowel sounds, no organomegaly Genitourinary: normal external genitalia Extremities: no cyanosis Skin: no rash, no ulcers Laboratory Tests 07/13/17 03:30: White Blood Count 4.9, Red Blood Count 4.86, Hemoglobin 16.3, Hematocrit 47.9, Mean Corpuscular Volume 99, Mean Corpuscular Hemoglobin 33.6H, Mean Corpuscular Hemoglobin Concent 34.1, Red Cell Distribution Width 12.4, Platelet Count 135L, Mean Platelet Volume 7.9, Neutrophils (%) (Auto) 64.9, Lymphocytes (%) (Auto) 25.8, Monocytes (%) (Auto) 7.9, Eosinophils (%) (Auto) 0.5, Basophils (%) (Auto ) 1.0, Sodium Level 141, Potassium Level 4.4, Chloride Level 101, Carbon Dioxide Level 29, Anion Gap 11, Blood Urea Nitrogen 4L, Creatinine 0.6, Estimat Glomerular Filtration Rate > 60, Glucose Level 86, Calcium Level 9.8, Amylase Level 301H, Lipase 3142H 07/13/17 15:30: Urine Opiates Screen Negative, Urine Barbiturates Screen Negative, Phencyclidine (PCP) Screen Negative, Urine Amphetamines Screen Negative, Urine Benzodiazepines Screen PositiveH, Urine Cocaine Screen Negative, Urine Marijuana (THC) Screen Negative Current Medications Medications (Trade) Dose Ordered Sig/Ihsan Route PRN Reason Start Time Stop Time Status Last Admin Dose Admin Acetaminophen (Tylenol) 650 mg Q4H PRN ORAL fever 07/08/17 15:15 08/07/17 15:14 Al Hydroxide/Mg Hydroxide (Mylanta II) 30 ml Q6H PRN ORAL dyspepsia 07/08/17 15:15 08/07/17 15:14 Chlordiazepoxide (Librium) 25 mg Q6H PRN ORAL Agitation 07/12/17 14:07 07/19/17 14:06 07/13/17 00:34 Dextrose (Dextrose 50%) STAT PRN IV Hypoglycemia 07/08/17 15:15 08/07/17 15:14 Dextrose/Sodium Chloride 1,000 ml @ 150 mls/hr Q6H40M IV 07/09/17 16:30 08/08/17 16:29 07/13/17 05:29 Diphenhydramine HCl (Benadryl) 25 mg Q6H PRN ORAL Itching/Pruritis 07/08/17 15:15 08/07/17 15:14 Docusate Sodium (Colace) 100 mg THREE TIMES A DAY ORAL 07/13/17 13:00 08/12/17 12:59 Folic Acid 1 mg/ Magnesium Sulfate 2000 mg/ Multivitamins 10 ml/Sodium Chloride 1,014.2 ml @ 125 mls/ hr Q24H IV 07/09/17 09:30 08/08/17 09:29 07/13/17 10:18 Heparin Sodium (Porcine) (Heparin 5000 units/ml) 5,000 units EVERY 12 HOURS SUBQ 07/08/17 21:00 08/07/17 20:59 07/12/17 12:51 Lorazepam (Ativan 2mg/ml 1ml) 2 mg Q4H PRN IV For Anxiety 07/12/17 14:00 07/19/17 13:59 07/13/17 06:40 Methadone HCl (Methadone HCl) 5 mg DAILY ORAL 07/09/17 10:00 07/16/17 09:59 07/13/17 11:03 Methadone HCl (Methadone HCl) 180 mg DAILY ORAL 07/09/17 10:00 07/16/17 09:59 07/13/17 11:02 Metoclopramide HCl (Reglan) 10 mg Q6H PRN IVP SEVERE NAUSEA 07/08/17 15:15 08/07/17 15:14 07/08/17 16:29 Nitroglycerin (Ntg) 0.4 mg Q5M X 3 DOSES PRN SL Prn Chest Pain 07/08/17 15:15 08/07/17 15:14 Ondansetron HCl (Zofran) 4 mg Q6H PRN IVP Nausea & Vomiting 07/08/17 15:15 08/07/17 15:14 07/12/17 12:11 Pantoprazole (Protonix) 40 mg DAILY IV 07/09/17 09:00 08/08/17 08:59 07/13/17 10:18 Pentoxifylline (TRENtal) 400 mg THREE TIMES A DAY ORAL 07/11/17 13:00 08/10/17 12:59 07/13/17 13:07 Polyethylene Glycol (Miralax) 17 gm HSPRN PRN ORAL Constipation 07/08/17 15:15 08/07/17 15:14 Promethazine HCl (Phenergan) 25 mg Q8H PRN IV refractory nausea 07/08/17 15:15 08/07/17 15:14 Temazepam (Restoril) 15 mg HSPRN PRN ORAL Insomnia 07/08/17 15:15 07/15/17 15:14 Thiamine HCl 100 mg/Dextrose 56 ml @ 112 mls/hr Q24H IVPB 07/09/17 09:30 08/08/17 09:29 07/13/17 10:19 DANYELL SHANKAR Jul 13, 2017 16:52
[2017-07-13 20:00] VITALS: BP 123/90
[2017-07-14] VITALS: BP 135/90
[2017-07-14] MEDS: D5 1/2NS 1,000 ML IV SCH ×5 (03:10→23:20)
[2017-07-14 04:00] VITALS: BP 117/79
[2017-07-14 07:49] LABS: HEMATOCRIT 44.7 % (42.0-52.0); HEMOGLOBIN 15.1 G/DL (14.2-18.0); MEAN CORPUSCULAR VOLUME 100 FL (80-99); PLATELET COUNT 114 K/UL (150-450); RED BLOOD COUNT 4.49 M/UL (4.70-6.10); RED CELL DISTRIBUTION WIDTH 12.5 % (11.6-14.8); WHITE BLOOD COUNT 3.4 K/UL (4.8-10.8)
[2017-07-14 08:13] LABS: ANION GAP 14 mmol/L (5-15); BLOOD UREA NITROGEN 6 mg/dL (7-18); CALCIUM 8.9 MG/DL (8.5-10.1); CARBON DIOXIDE 23 MMOL/L (21-32); CHLORIDE 102 MMOL/L (98-107); CREATININE 0.7 MG/DL (0.55-1.30); POTASSIUM 4.1 MMOL/L (3.5-5.1); SODIUM 139 MMOL/L (136-145)
[2017-07-14 08:22] VITALS: BP 143/94
[2017-07-14] MEDS: Heparin 5000 units/ml inj SUBQ SCH ×2 (09:00→21:00)
[2017-07-14] MEDS: Docusate 100mg cap ORAL SCH ×3 (09:31→17:12)
[2017-07-14] MEDS: Pantoprazole Inj IV SCH (09:31)
[2017-07-14] MEDS: Thiamine 100mg in D5W 55ml IVPB SCH (09:33)
[2017-07-14] MEDS: Folic Acid 1 MG, Magnesium Sulfate 2,000 MG, Multivitamin - 12 Injection 10 ML in NS w/... IV SCH (09:34)
--- NOTE | 2017-07-14 10:53 | GI Progress Note ---
Assessment/Plan Problems: (1) Alcohol abuse ICD Codes: F10.10 - Alcohol abuse, uncomplicated SNOMED: 96516498 (2) Vomiting ICD Codes: R11.10 - Vomiting, unspecified SNOMED: 170252290 Qualifiers: Qualified Codes: R11.2 - Nausea with vomiting, unspecified (3) Pancreatitis ICD Codes: K85.90 - Acute pancreatitis without necrosis or infection, unspecified SNOMED: 43408984 (4) Opiate addiction ICD Codes: F11.20 - Opioid dependence, uncomplicated SNOMED: 29429668 Status: stable, progressing Status Narrative Discussed with Dr. Martinez. Assessment/Plan utox >> unremarkable, noted by staff possible urine may be from girlfriend >> repeated utox unremarkable lipase now downtrending abdominal U/S reviewed >> Hepatomegaly with increased liver echogenicity suggesting hepatic steatosis. AP/chest CT reviewed >> 11 mm noncalcified left lower lobe mass. Appearance is nonspecific, malignancy not excludable. Due to its small size and location immediately deep to a rib, not likely amenable to percutaneous biopsy. Consider either short interval followup [address] or PET/CT for further evaluation soft low fat today >> okay for DC per GI standpoint if tolerates lunch Librium prn banana bag pain mgmt colace repeat labs Subjective Subjective abdominal pain improved no emesis last night ETOH withdrawal tremors improved Objective Last 24 Hour Vital Signs Date Time Temp Pulse Resp B/P (MAP) Pulse Ox O2 Delivery O2 Flow Rate FiO2 07/14/17 09:35 143/94 07/14/17 08:22 97.9 92 19 143/94 96 Room Air 07/14/17 04:00 97.9 92 18 117/79 94 Room Air 07/14/17 00:00 97.5 85 18 135/90 96 Room Air 07/13/17 20:00 97.0 88 18 123/90 96 Room Air 07/13/17 18:18 129/86 07/13/17 16:34 97.3 75 14 129/86 97 Room Air 07/13/17 13:07 150/97 07/13/17 12:00 97.0 89 12 150/97 97 Room Air Laboratory Tests Test 07/13/17 15:30 07/14/17 07:20 Urine Opiates Screen Negative (NEGATIVE) Urine Barbiturates Screen Negative (NEGATIVE) Phencyclidine (PCP) Screen Negative (NEGATIVE) Urine Amphetamines Screen Negative (NEGATIVE) Urine Benzodiazepines Screen Positive (NEGATIVE) H Urine Cocaine Screen Negative (NEGATIVE) Urine Marijuana (THC) Screen Negative (NEGATIVE) White Blood Count 3.4 K/UL (4.8-10.8) L Red Blood Count 4.49 M/UL (4.70-6.10) L Hemoglobin 15.1 G/DL (14.2-18.0) Hematocrit 44.7 % (42.0-52.0) Mean Corpuscular Volume 100 FL (80-99) H Mean Corpuscular Hemoglobin 33.6 PG (27.0-31.0) H Mean Corpuscular Hemoglobin Concent 33.8 G/DL (32.0-36.0) Red Cell Distribution Width 12.5 % (11.6-14.8) Platelet Count 114 K/UL (150-450) L Mean Platelet Volume 7.0 FL (6.5-10.1) Neutrophils (%) (Auto) % (45.0-75.0) Lymphocytes (%) (Auto) % (20.0-45.0) Monocytes (%) (Auto) % (1.0-10.0) Eosinophils (%) (Auto) % (0.0-3.0) Basophils (%) (Auto) % (0.0-2.0) Differential Total Cells Counted 100 Neutrophils % (Manual) 43 % (45-75) L Lymphocytes % (Manual) 50 % (20-45) H Monocytes % (Manual) 6 % (1-10) Eosinophils % (Manual) 1 % (0-3) Basophils % (Manual) 0 % (0-2) Band Neutrophils 0 % (0-8) Platelet Estimate Decreased L Platelet Morphology Normal Red Blood Cell Morphology Macrocytosis 1+ Sodium Level 139 MMOL/L (136-145) Potassium Level 4.1 MMOL/L (3.5-5.1) Chloride Level 102 MMOL/L (98-107) Carbon Dioxide Level 23 MMOL/L (21-32) Anion Gap 14 mmol/L (5-15) Blood Urea Nitrogen 6 mg/dL (7-18) L Creatinine 0.7 MG/DL (0.55-1.30) Estimat Glomerular Filtration Rate > 60 mL/min (>60) Glucose Level 84 MG/DL (74-106) Calcium Level 8.9 MG/DL (8.5-10.1) Lipase 2085 U/L (73-393) H Height (Feet): 5 Height (Inches): 8.00 Weight (Pounds): 184 General Appearance: WD/WN, no apparent distress, alert Cardiovascular: normal rate Respiratory/Chest: normal breath sounds, no respiratory distress Abdominal Exam: normal bowel sounds, non tender, soft Extremities: normal range of motion, non-tender Kizzy Cruz N.P. Jul 14, 2017 10:53
--- NOTE | 2017-07-14 10:53 | GI Progress Note ---
Assessment/Plan Problems: (1) Alcohol abuse ICD Codes: F10.10 - Alcohol abuse, uncomplicated SNOMED: 09953857 (2) Vomiting ICD Codes: R11.10 - Vomiting, unspecified SNOMED: 669093517 Qualifiers: Qualified Codes: R11.2 - Nausea with vomiting, unspecified (3) Pancreatitis ICD Codes: K85.90 - Acute pancreatitis without necrosis or infection, unspecified SNOMED: 48042694 (4) Opiate addiction ICD Codes: F11.20 - Opioid dependence, uncomplicated SNOMED: 68522517 Status: stable, progressing Status Narrative Discussed with Dr. Martinez. Assessment/Plan utox >> unremarkable, noted by staff possible urine may be from girlfriend >> repeated utox unremarkable lipase now downtrending abdominal U/S reviewed >> Hepatomegaly with increased liver echogenicity suggesting hepatic steatosis. AP/chest CT reviewed >> 11 mm noncalcified left lower lobe mass. Appearance is nonspecific, malignancy not excludable. Due to its small size and location immediately deep to a rib, not likely amenable to percutaneous biopsy. Consider either short interval followup [address] or PET/CT for further evaluation soft low fat today >> okay for DC per GI standpoint if tolerates lunch Librium prn banana bag pain mgmt colace repeat labs Subjective Subjective abdominal pain improved no emesis last night ETOH withdrawal tremors improved Objective Last 24 Hour Vital Signs Date Time Temp Pulse Resp B/P (MAP) Pulse Ox O2 Delivery O2 Flow Rate FiO2 07/14/17 09:35 143/94 07/14/17 08:22 97.9 92 19 143/94 96 Room Air 07/14/17 04:00 97.9 92 18 117/79 94 Room Air 07/14/17 00:00 97.5 85 18 135/90 96 Room Air 07/13/17 20:00 97.0 88 18 123/90 96 Room Air 07/13/17 18:18 129/86 07/13/17 16:34 97.3 75 14 129/86 97 Room Air 07/13/17 13:07 150/97 07/13/17 12:00 97.0 89 12 150/97 97 Room Air Laboratory Tests Test 07/13/17 15:30 07/14/17 07:20 Urine Opiates Screen Negative (NEGATIVE) Urine Barbiturates Screen Negative (NEGATIVE) Phencyclidine (PCP) Screen Negative (NEGATIVE) Urine Amphetamines Screen Negative (NEGATIVE) Urine Benzodiazepines Screen Positive (NEGATIVE) H Urine Cocaine Screen Negative (NEGATIVE) Urine Marijuana (THC) Screen Negative (NEGATIVE) White Blood Count 3.4 K/UL (4.8-10.8) L Red Blood Count 4.49 M/UL (4.70-6.10) L Hemoglobin 15.1 G/DL (14.2-18.0) Hematocrit 44.7 % (42.0-52.0) Mean Corpuscular Volume 100 FL (80-99) H Mean Corpuscular Hemoglobin 33.6 PG (27.0-31.0) H Mean Corpuscular Hemoglobin Concent 33.8 G/DL (32.0-36.0) Red Cell Distribution Width 12.5 % (11.6-14.8) Platelet Count 114 K/UL (150-450) L Mean Platelet Volume 7.0 FL (6.5-10.1) Neutrophils (%) (Auto) % (45.0-75.0) Lymphocytes (%) (Auto) % (20.0-45.0) Monocytes (%) (Auto) % (1.0-10.0) Eosinophils (%) (Auto) % (0.0-3.0) Basophils (%) (Auto) % (0.0-2.0) Differential Total Cells Counted 100 Neutrophils % (Manual) 43 % (45-75) L Lymphocytes % (Manual) 50 % (20-45) H Monocytes % (Manual) 6 % (1-10) Eosinophils % (Manual) 1 % (0-3) Basophils % (Manual) 0 % (0-2) Band Neutrophils 0 % (0-8) Platelet Estimate Decreased L Platelet Morphology Normal Red Blood Cell Morphology Macrocytosis 1+ Sodium Level 139 MMOL/L (136-145) Potassium Level 4.1 MMOL/L (3.5-5.1) Chloride Level 102 MMOL/L (98-107) Carbon Dioxide Level 23 MMOL/L (21-32) Anion Gap 14 mmol/L (5-15) Blood Urea Nitrogen 6 mg/dL (7-18) L Creatinine 0.7 MG/DL (0.55-1.30) Estimat Glomerular Filtration Rate > 60 mL/min (>60) Glucose Level 84 MG/DL (74-106) Calcium Level 8.9 MG/DL (8.5-10.1) Lipase 2085 U/L (73-393) H Height (Feet): 5 Height (Inches): 8.00 Weight (Pounds): 184 General Appearance: WD/WN, no apparent distress, alert Cardiovascular: normal rate Respiratory/Chest: normal breath sounds, no respiratory distress Abdominal Exam: normal bowel sounds, non tender, soft Extremities: normal range of motion, non-tender Kizzy Cruz N.P. Jul 14, 2017 10:53
--- NOTE | 2017-07-14 10:53 | GI Progress Note ---
Assessment/Plan Problems: (1) Alcohol abuse ICD Codes: F10.10 - Alcohol abuse, uncomplicated SNOMED: 58331320 (2) Vomiting ICD Codes: R11.10 - Vomiting, unspecified SNOMED: 337496834 Qualifiers: Qualified Codes: R11.2 - Nausea with vomiting, unspecified (3) Pancreatitis ICD Codes: K85.90 - Acute pancreatitis without necrosis or infection, unspecified SNOMED: 10006942 (4) Opiate addiction ICD Codes: F11.20 - Opioid dependence, uncomplicated SNOMED: 57615925 Status: stable, progressing Status Narrative Discussed with Dr. Martinez. Assessment/Plan utox >> unremarkable, noted by staff possible urine may be from girlfriend >> repeated utox unremarkable lipase now downtrending abdominal U/S reviewed >> Hepatomegaly with increased liver echogenicity suggesting hepatic steatosis. AP/chest CT reviewed >> 11 mm noncalcified left lower lobe mass. Appearance is nonspecific, malignancy not excludable. Due to its small size and location immediately deep to a rib, not likely amenable to percutaneous biopsy. Consider either short interval followup [address] or PET/CT for further evaluation soft low fat today >> okay for DC per GI standpoint if tolerates lunch Librium prn banana bag pain mgmt colace repeat labs Subjective Subjective abdominal pain improved no emesis last night ETOH withdrawal tremors improved Objective Last 24 Hour Vital Signs Date Time Temp Pulse Resp B/P (MAP) Pulse Ox O2 Delivery O2 Flow Rate FiO2 07/14/17 09:35 143/94 07/14/17 08:22 97.9 92 19 143/94 96 Room Air 07/14/17 04:00 97.9 92 18 117/79 94 Room Air 07/14/17 00:00 97.5 85 18 135/90 96 Room Air 07/13/17 20:00 97.0 88 18 123/90 96 Room Air 07/13/17 18:18 129/86 07/13/17 16:34 97.3 75 14 129/86 97 Room Air 07/13/17 13:07 150/97 07/13/17 12:00 97.0 89 12 150/97 97 Room Air Laboratory Tests Test 07/13/17 15:30 07/14/17 07:20 Urine Opiates Screen Negative (NEGATIVE) Urine Barbiturates Screen Negative (NEGATIVE) Phencyclidine (PCP) Screen Negative (NEGATIVE) Urine Amphetamines Screen Negative (NEGATIVE) Urine Benzodiazepines Screen Positive (NEGATIVE) H Urine Cocaine Screen Negative (NEGATIVE) Urine Marijuana (THC) Screen Negative (NEGATIVE) White Blood Count 3.4 K/UL (4.8-10.8) L Red Blood Count 4.49 M/UL (4.70-6.10) L Hemoglobin 15.1 G/DL (14.2-18.0) Hematocrit 44.7 % (42.0-52.0) Mean Corpuscular Volume 100 FL (80-99) H Mean Corpuscular Hemoglobin 33.6 PG (27.0-31.0) H Mean Corpuscular Hemoglobin Concent 33.8 G/DL (32.0-36.0) Red Cell Distribution Width 12.5 % (11.6-14.8) Platelet Count 114 K/UL (150-450) L Mean Platelet Volume 7.0 FL (6.5-10.1) Neutrophils (%) (Auto) % (45.0-75.0) Lymphocytes (%) (Auto) % (20.0-45.0) Monocytes (%) (Auto) % (1.0-10.0) Eosinophils (%) (Auto) % (0.0-3.0) Basophils (%) (Auto) % (0.0-2.0) Differential Total Cells Counted 100 Neutrophils % (Manual) 43 % (45-75) L Lymphocytes % (Manual) 50 % (20-45) H Monocytes % (Manual) 6 % (1-10) Eosinophils % (Manual) 1 % (0-3) Basophils % (Manual) 0 % (0-2) Band Neutrophils 0 % (0-8) Platelet Estimate Decreased L Platelet Morphology Normal Red Blood Cell Morphology Macrocytosis 1+ Sodium Level 139 MMOL/L (136-145) Potassium Level 4.1 MMOL/L (3.5-5.1) Chloride Level 102 MMOL/L (98-107) Carbon Dioxide Level 23 MMOL/L (21-32) Anion Gap 14 mmol/L (5-15) Blood Urea Nitrogen 6 mg/dL (7-18) L Creatinine 0.7 MG/DL (0.55-1.30) Estimat Glomerular Filtration Rate > 60 mL/min (>60) Glucose Level 84 MG/DL (74-106) Calcium Level 8.9 MG/DL (8.5-10.1) Lipase 2085 U/L (73-393) H Height (Feet): 5 Height (Inches): 8.00 Weight (Pounds): 184 General Appearance: WD/WN, no apparent distress, alert Cardiovascular: normal rate Respiratory/Chest: normal breath sounds, no respiratory distress Abdominal Exam: normal bowel sounds, non tender, soft Extremities: normal range of motion, non-tender Kizzy Cruz N.P. Jul 14, 2017 10:53
[2017-07-14 11:43] VITALS: BP 133/78
[2017-07-14 16:00] VITALS: BP 133/93
[2017-07-14 20:00] VITALS: BP 124/75
[2017-07-14] MEDS ORDERED: D5 1/2NS 1000ml IV ONE (21:32)
[2017-07-15] VITALS: BP 132/83
[2017-07-15 04:00] VITALS: BP 137/86
[2017-07-15] MEDS: D5 1/2NS 1,000 ML IV SCH ×2 (05:13→11:45)
[2017-07-15 07:07] LABS: ANION GAP 13 mmol/L (5-15); BASOPHILS % (AUTO) 2.1 % (0.0-2.0); BLOOD UREA NITROGEN 4 mg/dL (7-18); CALCIUM 8.2 MG/DL (8.5-10.1); CARBON DIOXIDE 25 MMOL/L (21-32); CHLORIDE 105 MMOL/L (98-107); CREATININE 0.7 MG/DL (0.55-1.30); EOSINOPHILS % (AUTO) 2.6 % (0.0-3.0); HEMATOCRIT 45.7 % (42.0-52.0); LYMPHOCYTES % (AUTO) 43.5 % (20.0-45.0); MEAN CORPUSCULAR VOLUME 100 FL (80-99); MONOCYTES % (AUTO) 9.7 % (1.0-10.0); NEUTROPHILS % (AUTO) 42.1 % (45.0-75.0); PLATELET COUNT 128 K/UL (150-450); POTASSIUM 3.9 MMOL/L (3.5-5.1); RED BLOOD COUNT 4.56 M/UL (4.70-6.10); RED CELL DISTRIBUTION WIDTH 12.7 % (11.6-14.8); SODIUM 143 MMOL/L (136-145); WHITE BLOOD COUNT 3.6 K/UL (4.8-10.8)
[2017-07-15 08:00] VITALS: BP 127/81
--- NOTE | 2017-07-15 08:25 | Pulmonology Progress Note ---
Assessment/Plan Assessment/Plan ASSESSMENT Acute alcoholic pancreatitis Alcohol abuse with dependency Opiate addiction Hepatic steatosis elevated transaminase LLL pulmonary mass PLAN OF CARE MS floor IVF with banana bag Librium prn Tox screen negative lipase with small trend down GI follows CT abdomen and pelvis with hepatomegaly with fatty infiltration and evidence of fecal retention Abdominal US with evidence of hepatic steatosis CT chest with 11 mm noncalcified left lower lobe mass. Appearance is nonspecific, malignancy not excludable. Due to its small size and location immediately deep to a rib, not likely amenable to percutaneous biopsy. follow-up [address] or PET/CT as outpatient dc today to [facility] counselor on abstinence from ETOH scripts provided for Librium prn, thiamine and folic acid case discussed and evaluated by supervising physician Subjective Allergies: Coded Allergies: CODEINE (Unverified Allergy, Unknown, 06/28/17) Subjective feeling better amylase and lipase trending down Objective Last 24 Hour Vital Signs Date Time Temp Pulse Resp B/P (MAP) Pulse Ox O2 Delivery O2 Flow Rate FiO2 07/15/17 04:00 97.9 97 20 137/86 96 Room Air 07/15/17 00:00 97.9 93 20 132/83 95 Room Air 07/14/17 20:00 97.9 101 20 124/75 93 Room Air 07/14/17 16:51 133/93 07/14/17 16:00 98.1 94 20 133/93 93 Room Air 07/14/17 14:03 133/78 07/14/17 11:43 98.2 90 20 133/78 96 Room Air 07/14/17 09:35 143/94 General Appearance: WD/WN, no acute distress HEENT: normocephalic, atraumatic, anicteric, mucous membranes moist, PERRL Respiratory/Chest: normal breath sounds, no respiratory distress, no accessory muscle use Cardiovascular: normal peripheral pulses, normal rate, regular rhythm, no JVD Abdomen: normal bowel sounds, soft, non tender, non distended Extremities: no edema Skin: no rash Neurologic/Psychiatric: alert, oriented x 3, responsive, other - mild hand tremors Musculoskeletal: normal muscle bulk Laboratory Tests 07/15/17 05:35: White Blood Count 3.6L, Red Blood Count 4.56L, Hemoglobin 15.0, Hematocrit 45.7 , Mean Corpuscular Volume 100H, Mean Corpuscular Hemoglobin 32.8H, Mean Corpuscular Hemoglobin Concent 32.7, Red Cell Distribution Width 12.7, Platelet Count 128L, Mean Platelet Volume 6.7, Neutrophils (%) (Auto) 42.1L, Lymphocytes (%) (Auto) 43.5, Monocytes (%) (Auto) 9.7, Eosinophils (%) (Auto) 2.6, Basophils (%) (Auto) 2.1H, Sodium Level 143, Potassium Level 3.9, Chloride Level 105, Carbon Dioxide Level 25, Anion Gap 13, Blood Urea Nitrogen 4L, Creatinine 0.7, Estimat Glomerular Filtration Rate > 60, Glucose Level 104, Calcium Level 8.2L Current Medications Medications (Trade) Dose Ordered Sig/Ihsan Route PRN Reason Start Time Stop Time Status Last Admin Dose Admin Acetaminophen (Tylenol) 650 mg Q4H PRN ORAL fever 07/08/17 15:15 08/07/17 15:14 Al Hydroxide/Mg Hydroxide (Mylanta II) 30 ml Q6H PRN ORAL dyspepsia 07/08/17 15:15 08/07/17 15:14 Chlordiazepoxide (Librium) 25 mg Q6H PRN ORAL Agitation 07/12/17 14:07 07/19/17 14:06 07/13/17 00:34 Dextrose (Dextrose 50%) STAT PRN IV Hypoglycemia 07/08/17 15:15 08/07/17 15:14 Dextrose/Sodium Chloride 1,000 ml @ 150 mls/hr Q6H40M IV 07/09/17 16:30 08/08/17 16:29 07/15/17 05:13 Diphenhydramine HCl (Benadryl) 25 mg Q6H PRN ORAL Itching/Pruritis 07/08/17 15:15 08/07/17 15:14 Docusate Sodium (Colace) 100 mg THREE TIMES A DAY ORAL 07/13/17 13:00 08/12/17 12:59 07/14/17 09:31 Folic Acid 1 mg/ Magnesium Sulfate 2000 mg/ Multivitamins 10 ml/Sodium Chloride 1,014.2 ml @ 125 mls/ hr Q24H IV 07/09/17 09:30 08/08/17 09:29 07/14/17 09:34 Heparin Sodium (Porcine) (Heparin 5000 units/ml) 5,000 units EVERY 12 HOURS SUBQ 07/08/17 21:00 08/07/17 20:59 07/12/17 12:51 Lorazepam (Ativan 2mg/ml 1ml) 2 mg Q4H PRN IV For Anxiety 07/12/17 14:00 07/19/17 13:59 07/13/17 06:40 Methadone HCl (Methadone HCl) 5 mg DAILY ORAL 07/09/17 10:00 07/16/17 09:59 07/14/17 09:32 Methadone HCl (Methadone HCl) 180 mg DAILY ORAL 07/09/17 10:00 07/16/17 09:59 07/14/17 09:33 Metoclopramide HCl (Reglan) 10 mg Q6H PRN IVP SEVERE NAUSEA 07/08/17 15:15 08/07/17 15:14 07/08/17 16:29 Nitroglycerin (Ntg) 0.4 mg Q5M X 3 DOSES PRN SL Prn Chest Pain 07/08/17 15:15 08/07/17 15:14 Ondansetron HCl (Zofran) 4 mg Q6H PRN IVP Nausea & Vomiting 07/08/17 15:15 08/07/17 15:14 07/12/17 12:11 Pantoprazole (Protonix) 40 mg DAILY IV 07/09/17 09:00 08/08/17 08:59 07/14/17 09:31 Pentoxifylline (TRENtal) 400 mg THREE TIMES A DAY ORAL 07/11/17 13:00 08/10/17 12:59 07/14/17 16:51 Polyethylene Glycol (Miralax) 17 gm HSPRN PRN ORAL Constipation 07/08/17 15:15 08/07/17 15:14 Promethazine HCl (Phenergan) 25 mg Q8H PRN IV refractory nausea 07/08/17 15:15 08/07/17 15:14 Temazepam (Restoril) 15 mg HSPRN PRN ORAL Insomnia 07/08/17 15:15 07/15/17 15:14 Thiamine HCl 100 mg/Dextrose 56 ml @ 112 mls/hr Q24H IVPB 07/09/17 09:30 08/08/17 09:29 07/14/17 09:33 Holly Uriarte NP (Vanchtein) Jul 15, 2017 08:25
[2017-07-15 08:39] LABS: AMYLASE 175 U/L (25-115)
[2017-07-15] MEDS: Pantoprazole Inj IV SCH (10:15)
[2017-07-15] MEDS: Docusate 100mg cap ORAL SCH ×2 (10:16→14:46)
[2017-07-15] MEDS: Heparin 5000 units/ml inj SUBQ SCH (10:20)
[2017-07-15] MEDS: Thiamine 100mg in D5W 55ml IVPB SCH (11:13)
[2017-07-15] MEDS: Folic Acid 1 MG, Magnesium Sulfate 2,000 MG, Multivitamin - 12 Injection 10 ML in NS w/... IV SCH (11:13)
[2017-07-15] MEDS ORDERED: VITAMIN B-1100 MG ORAL (11:29)
[2017-07-15] MEDS ORDERED: FOLIC ACID1 MG ORAL (11:29)
[2017-07-15 11:46] VITALS: BP 120/83
--- NOTE | 2017-07-15 11:49 | GI Progress Note ---
Assessment/Plan Problems: (1) Alcohol abuse ICD Codes: F10.10 - Alcohol abuse, uncomplicated SNOMED: 58256326 (2) Vomiting ICD Codes: R11.10 - Vomiting, unspecified SNOMED: 226252682 Qualifiers: Qualified Codes: R11.2 - Nausea with vomiting, unspecified (3) Pancreatitis ICD Codes: K85.90 - Acute pancreatitis without necrosis or infection, unspecified SNOMED: 74288174 (4) Opiate addiction ICD Codes: F11.20 - Opioid dependence, uncomplicated SNOMED: 67824791 Status: stable Status Narrative Discussed with Dr. Martinez. Assessment/Plan utox >> unremarkable, noted by staff possible urine may be from girlfriend >> repeated utox unremarkable lipase now downtrending abdominal U/S reviewed >> Hepatomegaly with increased liver echogenicity suggesting hepatic steatosis. AP/chest CT reviewed >> 11 mm noncalcified left lower lobe mass. Appearance is nonspecific, malignancy not excludable. Due to its small size and location immediately deep to a rib, not likely amenable to percutaneous biopsy. Consider either short interval followup [address] or PET/CT for further evaluation okay for DC per GI standpoint soft low fat Librium prn banana bag pain mgmt colace repeat labs Subjective Subjective abdominal pain improved no emesis last night ETOH withdrawal tremors resolved Objective Last 24 Hour Vital Signs Date Time Temp Pulse Resp B/P (MAP) Pulse Ox O2 Delivery O2 Flow Rate FiO2 07/15/17 11:46 98.2 90 19 120/83 95 Room Air 07/15/17 10:16 127/81 07/15/17 08:00 97.7 100 20 127/81 95 Room Air 07/15/17 04:00 97.9 97 20 137/86 96 Room Air 07/15/17 00:00 97.9 93 20 132/83 95 Room Air 07/14/17 20:00 97.9 101 20 124/75 93 Room Air 07/14/17 16:51 133/93 07/14/17 16:00 98.1 94 20 133/93 93 Room Air 07/14/17 14:03 133/78 Laboratory Tests Test 07/15/17 05:35 White Blood Count 3.6 K/UL (4.8-10.8) L Red Blood Count 4.56 M/UL (4.70-6.10) L Hemoglobin 15.0 G/DL (14.2-18.0) Hematocrit 45.7 % (42.0-52.0) Mean Corpuscular Volume 100 FL (80-99) H Mean Corpuscular Hemoglobin 32.8 PG (27.0-31.0) H Mean Corpuscular Hemoglobin Concent 32.7 G/DL (32.0-36.0) Red Cell Distribution Width 12.7 % (11.6-14.8) Platelet Count 128 K/UL (150-450) L Mean Platelet Volume 6.7 FL (6.5-10.1) Neutrophils (%) (Auto) 42.1 % (45.0-75.0) L Lymphocytes (%) (Auto) 43.5 % (20.0-45.0) Monocytes (%) (Auto) 9.7 % (1.0-10.0) Eosinophils (%) (Auto) 2.6 % (0.0-3.0) Basophils (%) (Auto) 2.1 % (0.0-2.0) H Sodium Level 143 MMOL/L (136-145) Potassium Level 3.9 MMOL/L (3.5-5.1) Chloride Level 105 MMOL/L (98-107) Carbon Dioxide Level 25 MMOL/L (21-32) Anion Gap 13 mmol/L (5-15) Blood Urea Nitrogen 4 mg/dL (7-18) L Creatinine 0.7 MG/DL (0.55-1.30) Estimat Glomerular Filtration Rate > 60 mL/min (>60) Glucose Level 104 MG/DL (74-106) Calcium Level 8.2 MG/DL (8.5-10.1) L Amylase Level 175 U/L (25-115) H Lipase 1835 U/L (73-393) H Height (Feet): 5 Height (Inches): 8.00 Weight (Pounds): 184 General Appearance: WD/WN, no apparent distress, alert Cardiovascular: normal rate Respiratory/Chest: normal breath sounds, no respiratory distress Abdominal Exam: normal bowel sounds, non tender, soft Extremities: normal range of motion, non-tender Kizzy Cruz N.PChristiane Jul 15, 2017 11:49
--- NOTE | 2017-07-15 11:49 | GI Progress Note ---
Assessment/Plan Problems: (1) Alcohol abuse ICD Codes: F10.10 - Alcohol abuse, uncomplicated SNOMED: 74539917 (2) Vomiting ICD Codes: R11.10 - Vomiting, unspecified SNOMED: 058642797 Qualifiers: Qualified Codes: R11.2 - Nausea with vomiting, unspecified (3) Pancreatitis ICD Codes: K85.90 - Acute pancreatitis without necrosis or infection, unspecified SNOMED: 42281818 (4) Opiate addiction ICD Codes: F11.20 - Opioid dependence, uncomplicated SNOMED: 31877836 Status: stable Status Narrative Discussed with Dr. Martinez. Assessment/Plan utox >> unremarkable, noted by staff possible urine may be from girlfriend >> repeated utox unremarkable lipase now downtrending abdominal U/S reviewed >> Hepatomegaly with increased liver echogenicity suggesting hepatic steatosis. AP/chest CT reviewed >> 11 mm noncalcified left lower lobe mass. Appearance is nonspecific, malignancy not excludable. Due to its small size and location immediately deep to a rib, not likely amenable to percutaneous biopsy. Consider either short interval followup [address] or PET/CT for further evaluation okay for DC per GI standpoint soft low fat Librium prn banana bag pain mgmt colace repeat labs Subjective Subjective abdominal pain improved no emesis last night ETOH withdrawal tremors resolved Objective Last 24 Hour Vital Signs Date Time Temp Pulse Resp B/P (MAP) Pulse Ox O2 Delivery O2 Flow Rate FiO2 07/15/17 11:46 98.2 90 19 120/83 95 Room Air 07/15/17 10:16 127/81 07/15/17 08:00 97.7 100 20 127/81 95 Room Air 07/15/17 04:00 97.9 97 20 137/86 96 Room Air 07/15/17 00:00 97.9 93 20 132/83 95 Room Air 07/14/17 20:00 97.9 101 20 124/75 93 Room Air 07/14/17 16:51 133/93 07/14/17 16:00 98.1 94 20 133/93 93 Room Air 07/14/17 14:03 133/78 Laboratory Tests Test 07/15/17 05:35 White Blood Count 3.6 K/UL (4.8-10.8) L Red Blood Count 4.56 M/UL (4.70-6.10) L Hemoglobin 15.0 G/DL (14.2-18.0) Hematocrit 45.7 % (42.0-52.0) Mean Corpuscular Volume 100 FL (80-99) H Mean Corpuscular Hemoglobin 32.8 PG (27.0-31.0) H Mean Corpuscular Hemoglobin Concent 32.7 G/DL (32.0-36.0) Red Cell Distribution Width 12.7 % (11.6-14.8) Platelet Count 128 K/UL (150-450) L Mean Platelet Volume 6.7 FL (6.5-10.1) Neutrophils (%) (Auto) 42.1 % (45.0-75.0) L Lymphocytes (%) (Auto) 43.5 % (20.0-45.0) Monocytes (%) (Auto) 9.7 % (1.0-10.0) Eosinophils (%) (Auto) 2.6 % (0.0-3.0) Basophils (%) (Auto) 2.1 % (0.0-2.0) H Sodium Level 143 MMOL/L (136-145) Potassium Level 3.9 MMOL/L (3.5-5.1) Chloride Level 105 MMOL/L (98-107) Carbon Dioxide Level 25 MMOL/L (21-32) Anion Gap 13 mmol/L (5-15) Blood Urea Nitrogen 4 mg/dL (7-18) L Creatinine 0.7 MG/DL (0.55-1.30) Estimat Glomerular Filtration Rate > 60 mL/min (>60) Glucose Level 104 MG/DL (74-106) Calcium Level 8.2 MG/DL (8.5-10.1) L Amylase Level 175 U/L (25-115) H Lipase 1835 U/L (73-393) H Height (Feet): 5 Height (Inches): 8.00 Weight (Pounds): 184 General Appearance: WD/WN, no apparent distress, alert Cardiovascular: normal rate Respiratory/Chest: normal breath sounds, no respiratory distress Abdominal Exam: normal bowel sounds, non tender, soft Extremities: normal range of motion, non-tender Kizzy Cruz N.PChristiane Jul 15, 2017 11:49
--- NOTE | 2017-07-15 11:49 | GI Progress Note ---
Assessment/Plan Problems: (1) Alcohol abuse ICD Codes: F10.10 - Alcohol abuse, uncomplicated SNOMED: 44978630 (2) Vomiting ICD Codes: R11.10 - Vomiting, unspecified SNOMED: 328512563 Qualifiers: Qualified Codes: R11.2 - Nausea with vomiting, unspecified (3) Pancreatitis ICD Codes: K85.90 - Acute pancreatitis without necrosis or infection, unspecified SNOMED: 04543315 (4) Opiate addiction ICD Codes: F11.20 - Opioid dependence, uncomplicated SNOMED: 83841325 Status: stable Status Narrative Discussed with Dr. Martinez. Assessment/Plan utox >> unremarkable, noted by staff possible urine may be from girlfriend >> repeated utox unremarkable lipase now downtrending abdominal U/S reviewed >> Hepatomegaly with increased liver echogenicity suggesting hepatic steatosis. AP/chest CT reviewed >> 11 mm noncalcified left lower lobe mass. Appearance is nonspecific, malignancy not excludable. Due to its small size and location immediately deep to a rib, not likely amenable to percutaneous biopsy. Consider either short interval followup [address] or PET/CT for further evaluation okay for DC per GI standpoint soft low fat Librium prn banana bag pain mgmt colace repeat labs Subjective Subjective abdominal pain improved no emesis last night ETOH withdrawal tremors resolved Objective Last 24 Hour Vital Signs Date Time Temp Pulse Resp B/P (MAP) Pulse Ox O2 Delivery O2 Flow Rate FiO2 07/15/17 11:46 98.2 90 19 120/83 95 Room Air 07/15/17 10:16 127/81 07/15/17 08:00 97.7 100 20 127/81 95 Room Air 07/15/17 04:00 97.9 97 20 137/86 96 Room Air 07/15/17 00:00 97.9 93 20 132/83 95 Room Air 07/14/17 20:00 97.9 101 20 124/75 93 Room Air 07/14/17 16:51 133/93 07/14/17 16:00 98.1 94 20 133/93 93 Room Air 07/14/17 14:03 133/78 Laboratory Tests Test 07/15/17 05:35 White Blood Count 3.6 K/UL (4.8-10.8) L Red Blood Count 4.56 M/UL (4.70-6.10) L Hemoglobin 15.0 G/DL (14.2-18.0) Hematocrit 45.7 % (42.0-52.0) Mean Corpuscular Volume 100 FL (80-99) H Mean Corpuscular Hemoglobin 32.8 PG (27.0-31.0) H Mean Corpuscular Hemoglobin Concent 32.7 G/DL (32.0-36.0) Red Cell Distribution Width 12.7 % (11.6-14.8) Platelet Count 128 K/UL (150-450) L Mean Platelet Volume 6.7 FL (6.5-10.1) Neutrophils (%) (Auto) 42.1 % (45.0-75.0) L Lymphocytes (%) (Auto) 43.5 % (20.0-45.0) Monocytes (%) (Auto) 9.7 % (1.0-10.0) Eosinophils (%) (Auto) 2.6 % (0.0-3.0) Basophils (%) (Auto) 2.1 % (0.0-2.0) H Sodium Level 143 MMOL/L (136-145) Potassium Level 3.9 MMOL/L (3.5-5.1) Chloride Level 105 MMOL/L (98-107) Carbon Dioxide Level 25 MMOL/L (21-32) Anion Gap 13 mmol/L (5-15) Blood Urea Nitrogen 4 mg/dL (7-18) L Creatinine 0.7 MG/DL (0.55-1.30) Estimat Glomerular Filtration Rate > 60 mL/min (>60) Glucose Level 104 MG/DL (74-106) Calcium Level 8.2 MG/DL (8.5-10.1) L Amylase Level 175 U/L (25-115) H Lipase 1835 U/L (73-393) H Height (Feet): 5 Height (Inches): 8.00 Weight (Pounds): 184 General Appearance: WD/WN, no apparent distress, alert Cardiovascular: normal rate Respiratory/Chest: normal breath sounds, no respiratory distress Abdominal Exam: normal bowel sounds, non tender, soft Extremities: normal range of motion, non-tender Kizzy Cruz N.PChristiane Jul 15, 2017 11:49
[2017-07-15] MEDS ORDERED: LIBRIUM10 MG ORAL (14:00)
[2017-07-15] MEDS ORDERED: D5 1/2NS 1000ml IV ONE (14:55)
[2017-07-15 15:28] VITALS: BP 146/95
[2017-07-16] MEDS ORDERED: Thiamine 100mg tab ORAL SCH
--- NOTE | 2017-07-18 12:08 | Discharge Summary ---
Discharge Summary Hospital Course Date of Admission Jul 08, 2017 at 13:53 Date of Discharge Jul 15, 2017 at 16:24 Admitting Diagnosis pancreatitis HPI Shahzad Shook is a 32 year old male who was admitted on Jul 08, 2017 at 13:53 for Pancreatitis Hospital Course dc summary #[id number] Discharge Medications New Medications: Folic Acid* (Folic Acid*) 1 Mg Tablet 1 MG ORAL DAILY, #30 TAB Thiamine Hcl* (Vitamin B-1*) 100 Mg Tablet 100 MG ORAL DAILY, #30 TAB 0 Refills Continued Medications: Chlordiazepoxide (Chlordiazepoxide HCl) 25 Mg Capsule 25 MG ORAL THREE TIMES A DAY, #21 CAP 0 Refills Discontinued Medications: Alprazolam* (Xanax*) 0.25 Mg Tablet Unknown Dose ORAL PRN, #30 TAB 0 Refills Chlordiazepoxide Hcl* (Librium*) 10 Mg Capsule 10 MG ORAL Q8HR, #2 CAP 0 Refills Methadone Hcl* (Methadone*) 5 Mg Tablet Unknown Dose PO DAILY, #10 TAB 0 Refills Discharge Condition Upon Discharge: stable Discharge Disposition Patient was discharged to to [facility] Discharge Diagnoses: Chapito (Laith)Holly NP Jul 18, 2017 12:08
--- NOTE | 2017-07-18 12:08 | Discharge Summary ---
Discharge Summary Hospital Course Date of Admission Jul 08, 2017 at 13:53 Date of Discharge Jul 15, 2017 at 16:24 Admitting Diagnosis pancreatitis HPI Shahzad Shook is a 32 year old male who was admitted on Jul 08, 2017 at 13:53 for Pancreatitis Hospital Course dc summary #[id number] Discharge Medications New Medications: Folic Acid* (Folic Acid*) 1 Mg Tablet 1 MG ORAL DAILY, #30 TAB Thiamine Hcl* (Vitamin B-1*) 100 Mg Tablet 100 MG ORAL DAILY, #30 TAB 0 Refills Continued Medications: Chlordiazepoxide (Chlordiazepoxide HCl) 25 Mg Capsule 25 MG ORAL THREE TIMES A DAY, #21 CAP 0 Refills Discontinued Medications: Alprazolam* (Xanax*) 0.25 Mg Tablet Unknown Dose ORAL PRN, #30 TAB 0 Refills Chlordiazepoxide Hcl* (Librium*) 10 Mg Capsule 10 MG ORAL Q8HR, #2 CAP 0 Refills Methadone Hcl* (Methadone*) 5 Mg Tablet Unknown Dose PO DAILY, #10 TAB 0 Refills Discharge Condition Upon Discharge: stable Discharge Disposition Patient was discharged to to Rec Care Discharge Diagnoses: Chapito (Laith)Holly NP Jul 18, 2017 12:08
--- NOTE | 2017-07-18 12:08 | Discharge Summary ---
Discharge Summary Hospital Course Date of Admission Jul 08, 2017 at 13:53 Date of Discharge Jul 15, 2017 at 16:24 Admitting Diagnosis pancreatitis HPI Shahzad Shook is a 32 year old male who was admitted on Jul 08, 2017 at 13:53 for Pancreatitis Hospital Course dc summary #[id number] Discharge Medications New Medications: Folic Acid* (Folic Acid*) 1 Mg Tablet 1 MG ORAL DAILY, #30 TAB Thiamine Hcl* (Vitamin B-1*) 100 Mg Tablet 100 MG ORAL DAILY, #30 TAB 0 Refills Continued Medications: Chlordiazepoxide (Chlordiazepoxide HCl) 25 Mg Capsule 25 MG ORAL THREE TIMES A DAY, #21 CAP 0 Refills Discontinued Medications: Alprazolam* (Xanax*) 0.25 Mg Tablet Unknown Dose ORAL PRN, #30 TAB 0 Refills Chlordiazepoxide Hcl* (Librium*) 10 Mg Capsule 10 MG ORAL Q8HR, #2 CAP 0 Refills Methadone Hcl* (Methadone*) 5 Mg Tablet Unknown Dose PO DAILY, #10 TAB 0 Refills Discharge Condition Upon Discharge: stable Discharge Disposition Patient was discharged to to Rec Care Discharge Diagnoses: Chapito (Laith)Holly NP Jul 18, 2017 12:08
--- NOTE | 2017-07-19 03:30 | Discharge Summary 2 SIG ---
DATE OF ADMISSION: 07/08/2017 DATE OF DISCHARGE: 07/15/2017 REASON FOR ADMISSION: 32 years old male with a history of alcohol abuse, presented to the emergency room complaining of abdominal pain and vomiting. Workup in the emergency room revealed tachycardia, heart rate -112, blood pressure borderline -140/98. No leukocytosis. Stable hemoglobin and hematocrit. Stable electrolytes. Anion gap slightly elevated at 17. Lipase -1681. AST -468, ALT- 255. The patient was admitted for further management with diagnosis of pancreatitis, alcohol abuse, and opiate addiction. HOSPITAL COURSE: The patient was admitted. The patient was initially NPO, on the IV fluids. GI consult was requested. The patient was on banana bag. Librium provided as needed Pain management was provided. Abdominal ultrasound revealed evidence of hepatomegaly with increased liver echogenicity suggesting hepatic steatosis. The patient was started on clear liquid diet and slowly advanced as tolerated. Antiemetic provided as needed. Abdominal and pelvis CT showed hepatomegaly with fatty infiltration. Significant retention of fecal material within the colon. Partially imaged nodular density of the left lung base. Subsequently, CT of the chest was done, which revealed 11 mm noncalcified left lower lobe mass, appearance nonspecific malignancy not excludable due to the small size and location immediately deep to the rib, most likely not amenable to percutaneous biopsy. Recommended short term followup with CT or PET-CT in three months. The patient was informed about the finding and encouraged to follow up with the CT or PET-CT in three months. Toxicology screen was negative. LFTs and liapse were monitored . LFTs t were trending down. AST from initial 468 down to 235 and ALT from 255 down to 157. Lipase down to 1835, initially was 1681 and subsequently increased with highest being 3327 on 07/12/2017 and then started to trend down. Amylase prior to discharge- 175, lipase- 1835. Bowel regimen was instituted. The patient was counseled on abstinence from the alcohol. Discharge was arranged to recuperative care. The patient was stable for discharge. FINAL DIAGNOSES: 1. Acute alcoholic pancreatitis. 2. Alcohol abuse with dependency. 3. Opiate addiction. 4. Hepatic steatosis. 5. Elevated transaminase. 6. Left lower lobe pulmonary mass. DISCHARGE MEDICATIONS: See medication reconciliation list. Prescription provided for Librium as needed, thiamine, and folic acid. DISCHARGE INSTRUCTIONS: The patient was discharged to recuperative care. Follow up with the primary medical doctor. Follow up in three months with CT or PET-CT of the chest. Sirena Sawyer M.D. I have been assigned to dictate discharge summary on this account and I was not involved in the patient's management. Holly mayorgabrandon NChristianePChristiane DR: [place] JOB#: [id number] CC: ANTONIO
== END 2017-07-15 16:24 | disposition home or self-care (01) | DRG 282 ==
LOC: EDBD 11:57 → EMR 13:10 → 4W 13:53 → EDBEDREQ 14:05 → 4W 15:24 → 4E 07-13 16:40
DX: K85.90 Acute pancreatitis without necrosis or infection, unspecified (principal); F11.20 Opioid dependence, uncomplicated; K76.0 Fatty (change of) liver, not elsewhere classified; F10.20 Alcohol dependence, uncomplicated; Z88.6 Allergy status to analgesic agent; R91.8 Other nonspecific abnormal finding of lung field
CPT/HCPCS: 36415; 71260; 74177; 76700; 80048; 80053; 80307; 81003; 82150; 83690; 85007; 85025; 85610; 85730; 99285; J2405; J2765

== ENCOUNTER 2017-07-27 10:25 | Emergency (ER) | payer MEDICAID ==
[~2017-07-27] VITALS: Ht 172.7 cm; Wt 83.9 kg
[~2017-07-27 10:25] MED LIST changes: +FOLIC ACID1 MG ORAL; +METHADONE HCL5 MG PO; +VITAMIN B-1100 MG ORAL; +XANAX0.25 MG ORAL
[2017-07-27 10:35] VITALS: BP 132/91
[2017-07-27 12:59] VITALS: BP 124/71
--- NOTE | 2017-07-27 13:16 | Emergency Room Report ---
History of Present Illness General Chief Complaint: General Complaint Source: Patient Present Illness HPI 32YOM BIBEMS with feeling like he is withdrawing from alcohol and benzos Last drank 2 days ago Takes klonopin daily - didnt take for 2 days Got his usual methadone dose 130mg this morning Denies headache, fever/chills, abdominal pain, chest pain, SOB, vomiting, diarrhea Denies drinking today Denies other drug use today Undomiciled Allergies: Coded Allergies: CODEINE (Unverified Allergy, Unknown, 06/28/17) Patient History Past Medical History: none Past Surgical History: none Pertinent Family History: none Social History: Reports: alcohol use, drug use Immunizations: UTD Reviewed Nursing Documentation: PMH: Agreed, PSxH: Agreed Nursing Documentation-PMH Hx Cardiac Problems: No - Hep C Hx Gastrointestinal Problems: Yes - pancreatitis Review of Systems All Other Systems: negative except mentioned in HPI Physical Exam Vital Signs Date Time Temp Pulse Resp B/P (MAP) Pulse Ox O2 Delivery O2 Flow Rate FiO2 07/27/17 10:18 97.9 100 15 144/92 99 Room Air 07/27/17 12:59 2.0 Sp02 EP Interpretation: reviewed, normal General Appearance: normal inspection, well appearing, no apparent distress, alert, GCS 15, non-toxic Head: normocephalic, atraumatic Eyes: bilateral eye PERRL, bilateral eye EOMI ENT: normal ENT inspection, hearing grossly normal, normal voice Neck: normal inspection, full range of motion, supple, no bony tend Respiratory: normal inspection, lungs clear, normal breath sounds, no respiratory distress, no retraction, no accessory muscle use, no wheezing Cardiovascular #1: regular rate, rhythm, no edema Gastrointestinal: normal inspection, normal bowel sounds, non tender, soft, no guarding, no hernia Genitourinary: no CVA tenderness Musculoskeletal: normal inspection, back normal, normal range of motion, Rome' s Sign negative Neurologic: normal inspection, alert, oriented x3, responsive, social media content specialist III-XII nml as tested, motor strength/tone normal, speech normal Psychiatric: normal inspection, judgement/insight normal, mood/affect normal Skin: normal inspection, normal color, no rash Medical Decision Making Diagnostic Impression: Primary Impression: Accidental methadone overdose Qualified Codes: T40.3X1A - Poisoning by methadone, accidental (unintentional) , initial encounter ER Course Likely accidental methadone overdose as patient is intermittently sleepy but arousable Vitals are stable RR>10, O2 sat maintained on room air Unlikely to be withdrawing from ETOH or benzos as vitals are stable and he is asymptomatic, has no focal neuro deficits, is not tremulous I discussed with patient possibility of giving low dose narcan for possible accidental overdose on methadone but patient adamantly against it He was observed in ED for multiple hours - maintained respiratory status Did not require additional intervention At DC, patient cursing staff out for "not giving me librium" However was observed in ED talking on cellphone, interacting with girlfriend bedside, laughing, no distress Rhythm Strip Diag. Results EP Interpretation: yes Rate: 65 Rhythm: NSR, no PVC's, no ectopy Last Vital Signs Date Time Temp Pulse Resp B/P (MAP) Pulse Ox O2 Delivery O2 Flow Rate FiO2 07/27/17 12:59 98.5 100 23 132/91 96 2.0 07/27/17 12:59 Nasal Cannula Status: improved Disposition: HOME, SELF-CARE Condition: Improved Patient Instructions: Narcotic Overdose ANNEL WHITLEY M.D. Jul 27, 2017 13:16
== END 2017-07-27 13:05 | disposition home or self-care (01) ==
LOC: EDUNIT# 10:25 → EDBD 10:25 → EMR 11:00
DX: T40.3X1A Poisoning by methadone, accidental (unintentional), initial encounter (principal); Y92.89 Other specified places as the place of occurrence of the external cause
CPT/HCPCS: 99284

== ENCOUNTER 2017-08-11 12:10 | Emergency (ER) | payer MEDICAID ==
[~2017-08-11] VITALS: Ht 172.7 cm; Wt 79.4 kg
[2017-08-11] MEDS ORDERED: METHADONE HCL5 MG PO (12:17)
[2017-08-11 13:39] VITALS: BP 111/77
--- NOTE | 2017-08-11 13:48 | Emergency Room Report ---
History of Present Illness General Chief Complaint: Alcohol Intoxication Source: Patient, EMS Present Illness HPI The patient is a 32-year-old male brought in by EMS for possible alcohol intoxication. The patient has been seen in this emergency department for the same complaints before. He does admit to drinking alcohol today. He denies drug use. He states that he does not want to be here. He denies any complaints to me. Allergies: Coded Allergies: CODEINE (Unverified Allergy, Unknown, 06/28/17) Patient History Past Medical History: see triage record Pertinent Family History: none Reviewed Nursing Documentation: PMH: Agreed, PSxH: Agreed Nursing Documentation-PMH Hx Cancer: No Hx Gastrointestinal Problems: Yes - pancreatitis History Of Psychiatric Problem: Yes - ETOH abuse; former Heroin abuse (last 2 1 /2 yrs ago) Hx Seizures: Yes Hx Tremors: Yes Review of Systems All Other Systems: negative except mentioned in HPI Physical Exam Vital Signs Date Time Temp Pulse Resp B/P (MAP) Pulse Ox O2 Delivery O2 Flow Rate FiO2 08/11/17 12:13 98.4 99 16 118/77 96 Room Air Sp02 EP Interpretation: reviewed, normal General Appearance: no apparent distress, alert, GCS 15, non-toxic Head: normocephalic, atraumatic Eyes: bilateral eye normal inspection, bilateral eye PERRL ENT: hearing grossly normal, normal pharynx, no angioedema, normal voice Neck: full range of motion, supple/symm/no masses Respiratory: chest non-tender, lungs clear, normal breath sounds, speaking full sentences Cardiovascular #1: regular rate, rhythm, no edema Musculoskeletal: back normal, gait/station normal, normal range of motion Neurologic: alert, responsive, motor strength/tone normal, sensory intact, speech normal Psychiatric: judgement/insight normal, memory normal, mood/affect normal, no suicidal/homicidal ideation Skin: normal color, no rash, warm/dry, well hydrated Medical Decision Making PA Attestation Dr. Heranndez is my supervising physician. Patient management was discussed with my supervising physician Diagnostic Impression: Primary Impression: Acute alcoholic intoxication Qualified Codes: F10.929 - Alcohol use, unspecified with intoxication, unspecified ER Course The patient is a 32-year-old male brought in by EMS for possible alcohol intoxication. DDx considered but not limited to: acute alcohol intoxication, hepatic encephalopathy, drug overdose, hypoglycemia, psychosis Physical exam: Vitals are within normal limits. No apparent distress. Head is normocephalic atraumatic. Pupils are equally round and reactive to light The patient is arousable by touch or name. Lungs are clear to auscultation bilaterally. No abdominal tenderness. Abdomen is soft. Otherwise exam is unremarkable The patient is given time to rest in the emergency department. Upon reevaluation, patient is more alert. He is able to walk with stable gait. The patient be discharged home and given ER precautions. Patient was given advice on alcohol addiction Last Vital Signs Date Time Temp Pulse Resp B/P (MAP) Pulse Ox O2 Delivery O2 Flow Rate FiO2 08/11/17 13:39 98.5 112 18 111/77 99 Room Air Status: improved Disposition: HOME, SELF-CARE Condition: Improved Referrals: NOT CHOSEN IPA/MD,REFERRING (PCP) Patient Instructions: Alcohol Intoxication Additional Instructions: My findings were discussed with the patient. Patient was counseled to seek help for alcohol abuse. Patient is stable for discharge, is alert and oriented, and can ambulate without difficulty. Patient is asked to return to ED if he experiences chest pain, abdominal pain, dizziness, falls down, or for any reason. ANTHONY NIELSON Aug 11, 2017 13:48
[2017-08-11 14:05] VITALS: BP 111/77
== END 2017-08-11 14:08 | disposition home or self-care (01) ==
LOC: EDUNIT# 12:10 → EDBD 12:10 → EMR 13:22
DX: F10.929 Alcohol use, unspecified with intoxication, unspecified (principal); Z88.6 Allergy status to analgesic agent
CPT/HCPCS: 99282

== ENCOUNTER 2018-05-23 09:49 | Inpatient (IN) | payer MEDICAID ==
[~2018-05-23] VITALS: Ht 167.6 cm; Wt 86.9 kg
[2018-05-23 09:51] VITALS: BP 156/118
[2018-05-23] MEDS ORDERED: LORazepam Inj 2mg/ml 1ml IV ONE (10:00)
[2018-05-23] MEDS ORDERED: Morphine Sulfate 4mg/ml Inj (IV USE ONLY) IVP ONE ×2 (10:00→11:15)
[2018-05-23 10:11] LABS: BASOPHILS % (AUTO) 0.6 % (0.0-2.0); EOSINOPHILS % (AUTO) 0.1 % (0.0-3.0); HEMATOCRIT 58.1 % (42.0-52.0); LYMPHOCYTES % (AUTO) 16.7 % (20.0-45.0); MEAN CORPUSCULAR VOLUME 96 FL (80-99); MONOCYTES % (AUTO) 8.3 % (1.0-10.0); NEUTROPHILS % (AUTO) 74.4 % (45.0-75.0); PLATELET COUNT 214 K/UL (150-450); RED BLOOD COUNT 6.04 M/UL (4.70-6.10); RED CELL DISTRIBUTION WIDTH 11.4 % (11.6-14.8); WHITE BLOOD COUNT 9.3 K/UL (4.8-10.8)
[2018-05-23 10:13] LABS: HEMOGLOBIN 19.2 G/DL (14.2-18.0)
--- NOTE | 2018-05-23 10:30 | Emergency Room Report ---
History of Present Illness General Chief Complaint: Abdominal Pain Source: Patient, Medical Record Present Illness HPI Patient has a history of alcohol and heroin withdrawal. Patient is currently on methadone. Patient also has history of pancreatitis. Patient states that he was recently admitted to the [facility] where he was diagnosed with pancreatitis. Patient signed out AGAINST MEDICAL ADVICE because he did not want to be transferred. He presents here in acute withdrawal complaining of tachycardia diffuse palpitations and anxiety and symptoms consistent with withdrawal. Per his report. Patient states that he's been unable to take methadone because of his withdrawal symptoms. Denies any fever. He does feel hot subjectively. Denies any confusion or visual hallucinations or auditory hallucinations. Symptoms noted be highly severe. He is actively vomiting and complaining of epigastric discomfort.No other modifying factors. No other associated signs and symptoms. No other complaints were noted. Allergies: Coded Allergies: CODEINE (Unverified Allergy, Unknown, 06/28/17) Patient History Past Medical History: other - pancreatitis Past Surgical History: none Pertinent Family History: none Social History: Reports: alcohol use, drug use; Denies: smoking Reviewed Nursing Documentation: PMH: Agreed; PSxH: Agreed Nursing Documentation-PMH Past Medical History: No History, Except For Hx Cancer: No Hx Gastrointestinal Problems: Yes - pancreatitis Hx Seizures: Yes Hx Tremors: Yes Review of Systems All Other Systems: negative except mentioned in HPI Physical Exam Vital Signs Date Time Temp Pulse Resp B/P (MAP) Pulse Ox O2 Delivery O2 Flow Rate FiO2 05/23/18 09:45 97.2 152 18 156/118 97 Room Air 97.2 Sp02 EP Interpretation: reviewed, normal General Appearance: alert, severe distress Head: atraumatic Eyes: bilateral eye normal inspection ENT: normal ENT inspection, hearing grossly normal, normal voice Neck: normal inspection, full range of motion, supple, no bony tend Respiratory: normal inspection, lungs clear, normal breath sounds, no respiratory distress, no retraction, no wheezing Cardiovascular #1: no edema, tachycardia Gastrointestinal: normal inspection, normal bowel sounds, soft, no guarding, no hernia, tenderness - epigastric Genitourinary: no CVA tenderness Musculoskeletal: normal inspection, back normal, normal range of motion Neurologic: alert, responsive, speech normal, other - anxious Psychiatric: normal inspection, no suicidal/homicidal ideation, depressed affect, anxious Skin: normal color, no rash, diaphoresis Procedures Critical Care Time Critical Care Time Patient had a critical medical condition which untreated could potentially result in life or limb threatening injury. Total critical care time excluding procedures was approximately 45 minutes. Medical Decision Making Diagnostic Impression: Primary Impression: Alcohol withdrawal Additional Impressions: Opiate withdrawal Pancreatitis Hypokalemia ER Course Sherri presents emergency department with abdominal pain and withdrawal symptoms. Differential considerations include alcohol withdrawal, opiate withdrawal, pancreatitis, electrolyte abnormality just to name a few.Given the severity of the patient's presentation I felt this is a highly complex patient. This patient required extensive workup. Show evidence of acute pancreatitis. Patient's symptoms are consistent with acute metal bonder will be withdrawal. Patient was given Ativan and morphine with improvement symptoms. Case was discussed with admitting physician. Patient will be admitted to telemetry for further treatment. Patient is also slightly hypokalemic will recommend replenish potassium once patient stops vomiting. Labs Test 05/23/18 09:45 White Blood Count 9.3 K/UL (4.8-10.8) Red Blood Count 6.04 M/UL (4.70-6.10) Hemoglobin 19.2 G/DL (14.2-18.0) Hematocrit 58.1 % (42.0-52.0) Mean Corpuscular Volume 96 FL (80-99) Mean Corpuscular Hemoglobin 31.9 PG (27.0-31.0) Mean Corpuscular Hemoglobin Concent 33.1 G/DL (32.0-36.0) Red Cell Distribution Width 11.4 % (11.6-14.8) Platelet Count 214 K/UL (150-450) Mean Platelet Volume 7.5 FL (6.5-10.1) Neutrophils (%) (Auto) 74.4 % (45.0-75.0) Lymphocytes (%) (Auto) 16.7 % (20.0-45.0) Monocytes (%) (Auto) 8.3 % (1.0-10.0) Eosinophils (%) (Auto) 0.1 % (0.0-3.0) Basophils (%) (Auto) 0.6 % (0.0-2.0) Sodium Level 141 MMOL/L (136-145) Potassium Level 3.1 MMOL/L (3.5-5.1) Chloride Level 94 MMOL/L (98-107) Carbon Dioxide Level 29 MMOL/L (21-32) Anion Gap 19 mmol/L (5-15) Blood Urea Nitrogen 13 mg/dL (7-18) Creatinine 1.4 MG/DL (0.55-1.30) Estimat Glomerular Filtration Rate 58.0 mL/min (>60) Glucose Level 150 MG/DL (74-106) Calcium Level 10.4 MG/DL (8.5-10.1) Total Bilirubin 2.2 MG/DL (0.2-1.0) Direct Bilirubin 1.2 MG/DL (0.0-0.3) Aspartate Amino Transf (AST/SGOT) 725 U/L (15-37) Alanine Aminotransferase (ALT/SGPT) 318 U/L (12-78) Alkaline Phosphatase 279 U/L (46-116) Troponin I 0.000 ng/mL (0.000-0.056) Total Protein 11.0 G/DL (6.4-8.2) Albumin 4.6 G/DL (3.4-5.0) Globulin 6.4 g/dL Albumin/Globulin Ratio 0.7 (1.0-2.7) Lipase 1159 U/L (73-393) EKG Diagnostic Results Rate: tachycardiac Rhythm: NSR ST Segments: no acute changes Other Impression multiple PV Rhythm Strip Diag. Results EP Interpretation: yes Rate: TACHYCARDI Rhythm: NSR, no ectopy, other - MMULTIPLE PVCs Chest X-Ray Diagnostic Results Chest X-Ray Diagnostic Results : Chest X-Ray Ordered: Yes # of Views/Limited/Complete: 1 View Indication: Shortness of Breath EP Interpretation: No Impression: No acute disease Last Vital Signs Date Time Temp Pulse Resp B/P (MAP) Pulse Ox O2 Delivery O2 Flow Rate FiO2 05/23/18 10:08 97.2 05/23/18 09:51 18 156/118 97 Room Air 05/23/18 09:45 152 Status: improved Disposition: ADMITTED INPATIENT Condition: Serious Referrals: NOT CHOSEN IPA/,REFERRING (PCP) Terrance Tomas MD May 23, 2018 10:30
[2018-05-23 10:57] LABS: ALANINE AMINOTRANSFERASE 318 U/L (12-78); ALBUMIN 4.6 G/DL (3.4-5.0); ALBUMIN/GLOBULIN RATIO 0.7 (1.0-2.7); ALKALINE PHOSPHATASE 279 U/L (46-116); ANION GAP 19 mmol/L (5-15); ASPARTATE AMINO TRANSFERASE 725 U/L (15-37); BILIRUBIN,TOTAL 2.2 MG/DL (0.2-1.0); BLOOD UREA NITROGEN 13 mg/dL (7-18); CALCIUM 10.4 MG/DL (8.5-10.1); CARBON DIOXIDE 29 MMOL/L (21-32); CHLORIDE 94 MMOL/L (98-107); CREATININE 1.4 MG/DL (0.55-1.30); POTASSIUM 3.1 MMOL/L (3.5-5.1); SODIUM 141 MMOL/L (136-145)
[2018-05-23 10:58] LABS: BILIRUBIN,DIRECT 1.2 MG/DL (0.0-0.3)
[2018-05-23 11:02] VITALS: BP 159/96
--- NOTE | 2018-05-23 11:30 | Diagnostic Imaging Report ---
Indication: Cough Comparison: 02/11/2016 A single view chest radiograph was obtained. Findings: Cardiomediastinal appearance is within normal limits for age. Lungs are clear but hypoinflated. Pulmonary vascularity is appropriate. The diaphragmatic contour is smooth and costophrenic angles are sharp. No pleural effusions are identified. The bones are unremarkable. Impression: No acute findings
[2018-05-23] MEDS ORDERED: XANAX2 MG ORAL (11:58)
[2018-05-23] MEDS ORDERED: LORazepam Inj 2mg/ml 1ml IV SCH (14:00)
[2018-05-23] MEDS ORDERED: Morphine Sulfate 2mg/ml Inj IVP PRN (14:00)
--- NOTE | 2018-05-23 14:23 | GI Initial Consult Note ---
History of Present Illness General Date patient seen: May 23, 2018 Time patient seen: 14:08 Reason for Hospitalization: Abdominal Pain Referring physician: BLU GUERRA Reason for Consultation: ALCOHOLIC PANCREATITIS Present Illness HPI Patient has a history of alcohol and heroin withdrawal. Patient is currently on methadone. Patient also has history of pancreatitis. Patient states that he was recently admitted to the [facility] where he was diagnosed with pancreatitis. Patient signed out AGAINST MEDICAL ADVICE because he did not want to be transferred. He presents here in acute withdrawal complaining of tachycardia diffuse palpitations and anxiety and symptoms consistent with withdrawal. Per his report. Patient states that he's been unable to take methadone because of his withdrawal symptoms. Denies any fever. He does feel hot subjectively. Denies any confusion or visual hallucinations or auditory hallucinations. Symptoms noted be highly severe. He is actively vomiting and complaining of epigastric discomfort.No other modifying factors. No other associated signs and symptoms. No other complaints were noted. GI consulted for ETOH pancreatitis. Pt seen, awake alert and oriented x 4. Noted with anxiety and tremors, unsteady gait, and persistent N/V. Per patient , he has been drinking approximately 2-3 pints of hard liquid daily. Unknown length of time. Presents today with elevated lipase levels, hemoconcentration, hypokalemia and abnormal LFTs. No history of endoscopy / colonoscopy. Home Meds Active Scripts Folic Acid* (FOLIC ACID*) 1 Mg Tablet, 1 MG ORAL DAILY, #30 TAB Prov:Holly Uriarte NP 07/15/17 Thiamine Hcl* (VITAMIN B-1*) 100 Mg Tablet, 100 MG ORAL DAILY, #30 TAB 0 Refills Prov:Holly Uriarte NP 07/15/17 Ondansetron Odt* (ZOFRAN ODT*) 4 Mg Tab.rapdis, 4 MG ORAL Q6H PRN for Nausea & Vomiting, #5 TAB Prov:Randa Nelson 06/28/17 Chlordiazepoxide (Chlordiazepoxide HCl) 25 Mg Capsule, 25 MG ORAL THREE TIMES A DAY, #21 CAP 0 Refills Prov:ISATU PETERSEN M.D. 05/21/17 Reported Medications Alprazolam* (XANAX*) 2 Mg Tablet, 2 MG ORAL THREE TIMES A DAY, #30 TAB 0 Refills 05/23/18 Methadone Hcl* (METHADONE*) 5 Mg Tablet, PO DAILY, #10 TAB 0 Refills 08/11/17 Chlordiazepoxide Hcl* (LIBRIUM*) 10 Mg Capsule, 25 MG ORAL EVERY 8 HOURS for withdrawal symptoms, #15 CAP 0 Refills 07/15/17 Med list reviewed/reconciled: Yes Allergies: Coded Allergies: CODEINE (Unverified Allergy, Unknown, 06/28/17) Patient History History Provided By: Patient PMH Narrative Past Medical History: other - pancreatitis Past Surgical History: none Pertinent Family History: none Social History: Reports: alcohol use, drug use; Denies: smoking Reviewed Nursing Documentation: PMH: Agreed; PSxH: Agreed Nursing Documentation-PMH Past Medical History: No History, Except For Hx Cancer: No Hx Gastrointestinal Problems: Yes - pancreatitis Hx Seizures: Yes Hx Tremors: Yes Social History: Reports: smoking, alcohol use, drug use Review of Systems All Other Systems: negative except mentioned in HPI Physical Exam Vital Signs Date Time Temp Pulse Resp B/P (MAP) Pulse Ox O2 Delivery O2 Flow Rate FiO2 05/23/18 09:45 97.2 152 18 156/118 97 Room Air 97.2 Sp02 EP Interpretation: reviewed, normal Labs Laboratory Tests Test 05/23/18 09:45 White Blood Count 9.3 K/UL (4.8-10.8) Red Blood Count 6.04 M/UL (4.70-6.10) Hemoglobin 19.2 G/DL (14.2-18.0) *H Hematocrit 58.1 % (42.0-52.0) H Mean Corpuscular Volume 96 FL (80-99) Mean Corpuscular Hemoglobin 31.9 PG (27.0-31.0) H Mean Corpuscular Hemoglobin Concent 33.1 G/DL (32.0-36.0) Red Cell Distribution Width 11.4 % (11.6-14.8) L Platelet Count 214 K/UL (150-450) Mean Platelet Volume 7.5 FL (6.5-10.1) Neutrophils (%) (Auto) 74.4 % (45.0-75.0) Lymphocytes (%) (Auto) 16.7 % (20.0-45.0) L Monocytes (%) (Auto) 8.3 % (1.0-10.0) Eosinophils (%) (Auto) 0.1 % (0.0-3.0) Basophils (%) (Auto) 0.6 % (0.0-2.0) Sodium Level 141 MMOL/L (136-145) Potassium Level 3.1 MMOL/L (3.5-5.1) L Chloride Level 94 MMOL/L (98-107) L Carbon Dioxide Level 29 MMOL/L (21-32) Anion Gap 19 mmol/L (5-15) H Blood Urea Nitrogen 13 mg/dL (7-18) Creatinine 1.4 MG/DL (0.55-1.30) H Estimat Glomerular Filtration Rate 58.0 mL/min (>60) Glucose Level 150 MG/DL (74-106) H Calcium Level 10.4 MG/DL (8.5-10.1) H Total Bilirubin 2.2 MG/DL (0.2-1.0) H Direct Bilirubin 1.2 MG/DL (0.0-0.3) H Aspartate Amino Transf (AST/SGOT) 725 U/L (15-37) H Alanine Aminotransferase (ALT/SGPT) 318 U/L (12-78) H Alkaline Phosphatase 279 U/L (46-116) H Troponin I 0.000 ng/mL (0.000-0.056) Total Protein 11.0 G/DL (6.4-8.2) H Albumin 4.6 G/DL (3.4-5.0) Globulin 6.4 g/dL Albumin/Globulin Ratio 0.7 (1.0-2.7) L Lipase 1159 U/L (73-393) H General Appearance: well appearing, no apparent distress, alert Head: normocephalic EENT: PERRL/EOMI, normal ENT inspection Neck: supple Respiratory: normal breath sounds, no respiratory distress Cardiovascular: normal rate Gastrointestinal: normal inspection, non tender, soft, normal bowel sounds, non -distended Rectal: deferred Genitourinary: deferred Musculoskeletal: normal inspection, back normal Neurologic: normal inspection, alert, oriented x3, responsive Psychiatric: normal inspection, judgement/insight normal, memory normal Skin: normal inspection, normal color, no rash, warm/dry, palpation normal, well hydrated Lymphatic: normal inspection, no adenopathy Current Medications Current Medications Medications (Trade) Dose Ordered Sig/Ihsan Route PRN Reason Start Time Stop Time Status Last Admin Dose Admin Folic Acid 1 mg/ Magnesium Sulfate 2000 mg/ Multivitamins 10 ml/Sodium Chloride 1,014.2 ml @ 90 mls/hr Q24H IV 05/23/18 15:00 06/22/18 14:59 Lorazepam (Ativan 2mg/ml 1ml) 2 mg ONCE IV 05/23/18 14:00 05/23/18 16:00 05/23/18 14:02 Morphine Sulfate (Morphine Sulfate) 4 mg Q4H PRN IVP For Pain 05/23/18 14:00 05/30/18 13:59 05/23/18 14:02 Ondansetron HCl (Zofran) 4 mg Q6H PRN IVP Nausea & Vomiting 05/23/18 14:00 06/22/18 13:59 05/23/18 14:02 Thiamine HCl 100 mg/Dextrose 56 ml @ 110 mls/hr DAILY IVPB 05/23/18 15:00 06/22/18 14:59 GI: Plan Problems: (1) Alcohol withdrawal (2) Opiate withdrawal (3) Pancreatitis (4) Hypokalemia (5) Accidental methadone overdose (6) Acute alcoholic intoxication Plan maintain NPO + banana bag electrolyte correction Ativan prn pain management supportive care zofran prn fu labs Discussed with Dr. Martinez. Thank you for this patient referral, we will follow. The patient was seen and examined at bedside and all new and available data was reviewed in the patients chart. I agree with the above findings, impression and plan. (Patient seen earlier today. Signature stamp does not reflect patient encounter time.). - MD Nancy Irene,[facility] [employer] May 23, 2018 14:23
[2018-05-23] MEDS ORDERED: Thiamine HCl 100 MG in D5W 55 ML IVPB SCH (15:00)
[2018-05-23] MEDS ORDERED: Folic Acid 1 MG, Magnesium Sulfate 2,000 MG, Multivitamin - 12 Injection 10 ML in NS 10... IV SCH ×8 (15:00)
--- NOTE | 2018-05-23 16:03 | Consultation ---
Consult Note Consult Note asked to eval at the request of Dr Baker Patient has a history of alcohol and heroin withdrawal. Patient is currently on methadone. Patient also has history of pancreatitis. Patient states that he was recently admitted to the [facility] where he was diagnosed with pancreatitis. Patient signed out AGAINST MEDICAL ADVICE because he did not want to be transferred. He presents here in acute withdrawal complaining of tachycardia diffuse palpitations and anxiety and symptoms consistent with withdrawal. Per his report. Patient states that he's been unable to take methadone because of his withdrawal symptoms. Denies any fever. He does feel hot subjectively. Denies any confusion or visual hallucinations or auditory hallucinations. Symptoms noted be highly severe. He is actively vomiting and complaining of epigastric discomfort.No other modifying factors. No other associated signs and symptoms. No other complaints were noted. CODEINE (Unverified Allergy, Unknown, 06/28/17) Past Medical History: No History, Except For Hx Gastrointestinal Problems: Yes - pancreatitis Hx Seizures: Yes Hx Tremors: Yes interviewed poor hygene Assessment/Plan Acute Pancreatitis Hypokalemia Alcohol Withdraw Opiate withdraw Alcoholic liver disease NPO IV fluid Protonix KCL ECho IVON abd minitor lipase monitor LFTs Sven Ulloa MD May 23, 2018 16:03
[2018-05-23] MEDS ORDERED: chlordiazePOXIDE 25mg Cap ORAL SCH (16:45)
[2018-05-23] MEDS: D5 1/2NS w/KCl 20mEq 1,000 ML IV SCH (17:00)
[2018-05-23] MEDS ORDERED: D5 1/2NS w/KCl 20mEq 1,000 ML IV SCH (17:00)
[2018-05-23] MEDS: Docusate 100mg cap ORAL SCH (17:13)
[2018-05-23] MEDS: Morphine Sulfate 2mg/ml Inj IVP PRN (18:44)
[2018-05-23 20:00] VITALS: BP 143/81
[2018-05-23] MEDS: Pantoprazole Inj IVP SCH (20:53)
[2018-05-23] MEDS ORDERED: Tamsulosin 0.4mg cap ORAL SCH (21:00)
--- NOTE | 2018-05-23 21:34 | Cardiology Progress Note ---
Assessment/Plan Assessment/Plan The patient is seen and examined, full consult note will be dictated. Objective Last 24 Hour Vital Signs Date Time Temp Pulse Resp B/P (MAP) Pulse Ox O2 Delivery O2 Flow Rate FiO2 05/23/18 19:14 98.0 05/23/18 18:44 98.0 05/23/18 16:00 113 05/23/18 14:32 98.0 05/23/18 13:29 122 05/23/18 13:18 98.0 112 18 137/95 97 Room Air 208.4 05/23/18 13:00 Room Air 05/23/18 11:11 98.0 05/23/18 11:02 98.0 112 18 159/96 97 Room Air 98.0 05/23/18 10:08 97.2 05/23/18 09:51 97.2 18 156/118 97 Room Air 97.2 05/23/18 09:45 97.2 152 18 156/118 97 Room Air 97.2 Laboratory Tests Test 05/23/18 09:45 White Blood Count 9.3 K/UL (4.8-10.8) Red Blood Count 6.04 M/UL (4.70-6.10) Hemoglobin 19.2 G/DL (14.2-18.0) *H Hematocrit 58.1 % (42.0-52.0) H Mean Corpuscular Volume 96 FL (80-99) Mean Corpuscular Hemoglobin 31.9 PG (27.0-31.0) H Mean Corpuscular Hemoglobin Concent 33.1 G/DL (32.0-36.0) Red Cell Distribution Width 11.4 % (11.6-14.8) L Platelet Count 214 K/UL (150-450) Mean Platelet Volume 7.5 FL (6.5-10.1) Neutrophils (%) (Auto) 74.4 % (45.0-75.0) Lymphocytes (%) (Auto) 16.7 % (20.0-45.0) L Monocytes (%) (Auto) 8.3 % (1.0-10.0) Eosinophils (%) (Auto) 0.1 % (0.0-3.0) Basophils (%) (Auto) 0.6 % (0.0-2.0) Sodium Level 141 MMOL/L (136-145) Potassium Level 3.1 MMOL/L (3.5-5.1) L Chloride Level 94 MMOL/L (98-107) L Carbon Dioxide Level 29 MMOL/L (21-32) Anion Gap 19 mmol/L (5-15) H Blood Urea Nitrogen 13 mg/dL (7-18) Creatinine 1.4 MG/DL (0.55-1.30) H Estimat Glomerular Filtration Rate 58.0 mL/min (>60) Glucose Level 150 MG/DL (74-106) H Calcium Level 10.4 MG/DL (8.5-10.1) H Total Bilirubin 2.2 MG/DL (0.2-1.0) H Direct Bilirubin 1.2 MG/DL (0.0-0.3) H Aspartate Amino Transf (AST/SGOT) 725 U/L (15-37) H Alanine Aminotransferase (ALT/SGPT) 318 U/L (12-78) H Alkaline Phosphatase 279 U/L (46-116) H Troponin I 0.000 ng/mL (0.000-0.056) C-Reactive Protein, Quantitative < 0.4 mg/dL (0.00-0.90) Total Protein 11.0 G/DL (6.4-8.2) H Albumin 4.6 G/DL (3.4-5.0) Globulin 6.4 g/dL Albumin/Globulin Ratio 0.7 (1.0-2.7) L Lipase 1159 U/L (73-393) H Lambert Miranda MD May 23, 2018 21:34
[2018-05-23] MEDS: Propranolol 10mg tab ORAL SCH (22:00)
[2018-05-23] MEDS: chlordiazePOXIDE 25mg Cap ORAL SCH (23:27)
[2018-05-24] VITALS: BP 126/95
[2018-05-24 00:19] LABS: APPEARANCE,URINE CLOUDY; BILIRUBIN, URINE 2+ (NEGATIVE); COLOR,URINE BROWN; GLUCOSE, URINE (UA) NEGATIVE (NEGATIVE); KETONES,URINE 1+ (NEGATIVE); LEUKOCYTE ESTERASE ,URINE 1+ (NEGATIVE); NITRITE,URINE NEGATIVE (NEGATIVE); PH,URINE 6 (4.5-8.0); PROTEIN,URINE 4+ (NEGATIVE); UROBILINOGEN,URINE 12 MG/DL (0.0-1.0)
[2018-05-24 04:00] VITALS: BP 131/87
[2018-05-24 05:52] VITALS: BP 131/87
[2018-05-24] MEDS: Propranolol 10mg tab ORAL SCH (05:52)
[2018-05-24] MEDS: Morphine Sulfate 2mg/ml Inj IVP PRN (05:52)
[2018-05-24] MEDS: D5 1/2NS w/KCl 20mEq 1,000 ML IV SCH (05:53)
[2018-05-24 06:10] LABS: BASOPHILS % (AUTO) 1.1 % (0.0-2.0); EOSINOPHILS % (AUTO) 0.4 % (0.0-3.0); HEMATOCRIT 47.6 % (42.0-52.0); HEMOGLOBIN 15.8 G/DL (14.2-18.0); MEAN CORPUSCULAR VOLUME 97 FL (80-99); MONOCYTES % (AUTO) 8.5 % (1.0-10.0); NEUTROPHILS % (AUTO) 73.1 % (45.0-75.0); PLATELET COUNT 137 K/UL (150-450); RED BLOOD COUNT 4.89 M/UL (4.70-6.10); RED CELL DISTRIBUTION WIDTH 11.6 % (11.6-14.8); WHITE BLOOD COUNT 5.2 K/UL (4.8-10.8)
[2018-05-24 06:31] LABS: AMMONIA 60 umol/L (11-32)
[2018-05-24 06:57] LABS: ALANINE AMINOTRANSFERASE 251 U/L (12-78); ALBUMIN 3.8 G/DL (3.4-5.0); ALBUMIN/GLOBULIN RATIO 0.7 (1.0-2.7); ALKALINE PHOSPHATASE 218 U/L (46-116); ANION GAP 8 mmol/L (5-15); ASPARTATE AMINO TRANSFERASE 536 U/L (15-37); BILIRUBIN,TOTAL 3.3 MG/DL (0.2-1.0); BLOOD UREA NITROGEN 18 mg/dL (7-18); CALCIUM 9.4 MG/DL (8.5-10.1); CARBON DIOXIDE 33 MMOL/L (21-32); CHLORIDE 98 MMOL/L (98-107); CREATININE 0.9 MG/DL (0.55-1.30); POTASSIUM 4.1 MMOL/L (3.5-5.1); SODIUM 139 MMOL/L (136-145)
[2018-05-24 06:58] LABS: BILIRUBIN,DIRECT 1.8 MG/DL (0.0-0.3)
[2018-05-24 07:31] LABS: AMYLASE 156 U/L (25-115); CHOLESTEROL 267 MG/DL (< 200); FERRITIN 1004 NG/ML (8-388); HDL CHOLESTEROL 98 MG/DL (40-60); PHOSPHORUS 2.4 MG/DL (2.5-4.9); TRIGLYCERIDES 157 MG/DL (30-150)
[2018-05-24 08:19] LABS: CREATINE KINASE 5635 U/L (26-308)
--- NOTE | 2018-05-24 08:22 | Diagnostic Imaging Report ---
Indication: Abnormal renal function tests, diabetic patient Technique: Grayscale and duplex images of the kidneys, retroperitoneum, and bladder were obtained. Comparison: none Findings: Right kidney measures 11.5 cm in length. Left kidney measures 11.8 cm in length. Both kidneys demonstrate normal echogenicity. No hydronephrosis. Right kidney demonstrates an echogenic focus in the interpolar region. Normal inferior vena cava. Bladder is normal. Impression: Negative for hydronephrosis Echogenic focus in the right kidney, may reflect a small on obstructive intrarenal calculus versus artifact.
[2018-05-24] MEDS: Docusate 100mg cap ORAL SCH (08:34)
[2018-05-24] MEDS: Pantoprazole Inj IVP SCH (08:34)
[2018-05-24] MEDS: chlordiazePOXIDE 25mg Cap ORAL SCH (08:35)
--- NOTE | 2018-05-24 08:53 | Consultation ---
History of Present Illness General Date patient seen: May 24, 2018 Present Illness Allergies: Coded Allergies: CODEINE (Unverified Allergy, Unknown, 06/28/17) Medication History Scheduled Alprazolam* (Xanax*), 2 MG ORAL THREE TIMES A DAY, (Reported) Chlordiazepoxide (Chlordiazepoxide HCl), 25 MG ORAL THREE TIMES A DAY Chlordiazepoxide Hcl* (Librium*), 25 MG ORAL EVERY 8 HOURS, (Reported) Folic Acid* (Folic Acid*), 1 MG ORAL DAILY Methadone Hcl* (Methadone*), Unknown Dose PO DAILY, (Reported) Thiamine Hcl* (Vitamin B-1*), 100 MG ORAL DAILY Scheduled PRN Ondansetron Odt* (Zofran Odt*), 4 MG ORAL Q6H PRN for Nausea & Vomiting Patient History Healthcare decision maker Resuscitation status Full Code Advanced Directive on File Physical Exam Last 24 Hour Vital Signs Date Time Temp Pulse Resp B/P (MAP) Pulse Ox O2 Delivery O2 Flow Rate FiO2 05/24/18 05:52 82 131/87 05/24/18 04:00 82 05/24/18 04:00 98.9 103 19 131/87 (102) 97 98.9 05/24/18 00:00 99.4 110 20 126/95 (105) 97 99.4 05/24/18 00:00 110 05/23/18 22:00 128 143/81 05/23/18 21:00 Room Air 05/23/18 20:00 97.7 99 22 143/81 (101) 98 97.7 05/23/18 20:00 104 05/23/18 19:14 98.0 05/23/18 18:44 98.0 05/23/18 16:00 113 05/23/18 14:32 98.0 05/23/18 13:29 122 05/23/18 13:18 98.0 112 18 137/95 97 Room Air 208.4 05/23/18 13:00 Room Air 05/23/18 11:11 98.0 05/23/18 11:02 98.0 112 18 159/96 97 Room Air 98.0 05/23/18 10:08 97.2 05/23/18 09:51 97.2 18 156/118 97 Room Air 97.2 05/23/18 09:45 97.2 152 18 156/118 97 Room Air 97.2 Intake and Output 05/23/18 05/24/18 19:00 07:00 Intake Total 0 ml Balance 0 ml Intake Oral 0 ml # Voids 1 2 # Bowel Movements 1 Laboratory Tests Test 05/23/18 09:45 05/23/18 23:00 05/24/18 05:52 White Blood Count 9.3 K/UL (4.8-10.8) 5.2 K/UL (4.8-10.8) Red Blood Count 6.04 M/UL (4.70-6.10) 4.89 M/UL (4.70-6.10) Hemoglobin 19.2 G/DL (14.2-18.0) *H 15.8 G/DL (14.2-18.0) Hematocrit 58.1 % (42.0-52.0) H 47.6 % (42.0-52.0) Mean Corpuscular Volume 96 FL (80-99) 97 FL (80-99) Mean Corpuscular Hemoglobin 31.9 PG (27.0-31.0) H 32.4 PG (27.0-31.0) H Mean Corpuscular Hemoglobin Concent 33.1 G/DL (32.0-36.0) 33.3 G/DL (32.0-36.0) Red Cell Distribution Width 11.4 % (11.6-14.8) L 11.6 % (11.6-14.8) Platelet Count 214 K/UL (150-450) 137 K/UL (150-450) L Mean Platelet Volume 7.5 FL (6.5-10.1) 7.6 FL (6.5-10.1) Neutrophils (%) (Auto) 74.4 % (45.0-75.0) 73.1 % (45.0-75.0) Lymphocytes (%) (Auto) 16.7 % (20.0-45.0) L 17.0 % (20.0-45.0) L Monocytes (%) (Auto) 8.3 % (1.0-10.0) 8.5 % (1.0-10.0) Eosinophils (%) (Auto) 0.1 % (0.0-3.0) 0.4 % (0.0-3.0) Basophils (%) (Auto) 0.6 % (0.0-2.0) 1.1 % (0.0-2.0) Sodium Level 141 MMOL/L (136-145) 139 MMOL/L (136-145) Potassium Level 3.1 MMOL/L (3.5-5.1) L 4.1 MMOL/L (3.5-5.1) Chloride Level 94 MMOL/L (98-107) L 98 MMOL/L (98-107) Carbon Dioxide Level 29 MMOL/L (21-32) 33 MMOL/L (21-32) H Anion Gap 19 mmol/L (5-15) H 8 mmol/L (5-15) Blood Urea Nitrogen 13 mg/dL (7-18) 18 mg/dL (7-18) Creatinine 1.4 MG/DL (0.55-1.30) H 0.9 MG/DL (0.55-1.30) Estimat Glomerular Filtration Rate 58.0 mL/min (>60) > 60 mL/min (>60) Glucose Level 150 MG/DL (74-106) H 100 MG/DL (74-106) Calcium Level 10.4 MG/DL (8.5-10.1) H 9.4 MG/DL (8.5-10.1) Total Bilirubin 2.2 MG/DL (0.2-1.0) H 3.3 MG/DL (0.2-1.0) H Direct Bilirubin 1.2 MG/DL (0.0-0.3) H 1.8 MG/DL (0.0-0.3) H Aspartate Amino Transf (AST/SGOT) 725 U/L (15-37) H 536 U/L (15-37) H Alanine Aminotransferase (ALT/SGPT) 318 U/L (12-78) H 251 U/L (12-78) H Alkaline Phosphatase 279 U/L (46-116) H 218 U/L (46-116) H Troponin I 0.000 ng/mL (0.000-0.056) 0.009 ng/mL (0.000-0.056) C-Reactive Protein, Quantitative < 0.4 mg/dL (0.00-0.90) Total Protein 11.0 G/DL (6.4-8.2) H 8.9 G/DL (6.4-8.2) H Albumin 4.6 G/DL (3.4-5.0) 3.8 G/DL (3.4-5.0) Globulin 6.4 g/dL 5.1 g/dL Albumin/Globulin Ratio 0.7 (1.0-2.7) L 0.7 (1.0-2.7) L Lipase 1159 U/L (73-393) H 1250 U/L (73-393) H Urine Color Brown Urine Appearance Cloudy Urine pH 6 (4.5-8.0) Urine Specific [place] 1.020 (1.005-1.035) Urine Protein 4+ (NEGATIVE) H Urine Glucose (UA) Negative (NEGATIVE) Urine Ketones 1+ (NEGATIVE) H Urine Blood 4+ (NEGATIVE) H Urine Nitrite Negative (NEGATIVE) Urine Bilirubin 2+ (NEGATIVE) H Urine Ictotest Negative (NEGATIVE) Urine Urobilinogen 12 MG/DL (0.0-1.0) H Urine Leukocyte Esterase 1+ (NEGATIVE) H Urine RBC 5-10 /HPF (0 - 0) H Urine WBC 2-4 /HPF (0 - 0) Urine Squamous Epithelial Cells Few /LPF (NONE/OCC) Urine Amorphous Sediment Moderate /LPF (NONE) H Urine Bacteria Few /HPF (NONE) Urine Hyaline Casts 2-4 /LPF (NONE) H Urine Mucus Moderate /LPF (NONE/OCC) H Urine Random Sodium 34 mmol/L (20-110) Urine Opiates Screen Positive (NEGATIVE) H Urine Barbiturates Screen Negative (NEGATIVE) Phencyclidine (PCP) Screen Negative (NEGATIVE) Urine Amphetamines Screen Negative (NEGATIVE) Urine Benzodiazepines Screen Positive (NEGATIVE) H Urine Cocaine Screen Negative (NEGATIVE) Urine Marijuana (THC) Screen Negative (NEGATIVE) Prothrombin Time 11.0 SEC (9.30-11.50) Prothromb Time International Ratio 1.0 (0.9-1.1) Activated Partial Thromboplast Time 25 SEC (23-33) Hemoglobin A1c 5.8 % (4.3-6.0) Uric Acid 3.9 MG/DL (2.6-7.2) Phosphorus Level 2.4 MG/DL (2.5-4.9) L Magnesium Level 2.4 MG/DL (1.8-2.4) Ferritin 1004 NG/ML (8-388) H Gamma Glutamyl Transpeptidase 5120 U/L (5-85) H Ammonia 60 umol/L (11-32) H Total Creatine Kinase 5635 U/L (26-308) H Pro-B-Type Natriuretic Peptide 102 pg/mL (0-125) Triglycerides Level 157 MG/DL (30-150) H Cholesterol Level 267 MG/DL (< 200) H LDL Cholesterol 131 mg/dL (<100) H HDL Cholesterol 98 MG/DL (40-60) H Cholesterol/HDL Ratio 2.7 (3.3-4.4) L Amylase Level 156 U/L (25-115) H Vitamin B12 Level 962 PG/ML (193-986) Folate 46.2 NG/ML (8.6-58.9) Thyroid Stimulating Hormone (TSH) 2.810 uiU/mL (0.358-3.740) Height (Feet): 5 Height (Inches): 6.00 Weight (Pounds): 191 Medications Current Medications Medications (Trade) Dose Ordered Sig/Ihsan Route PRN Reason Start Time Stop Time Status Last Admin Dose Admin Chlordiazepoxide (Librium) 25 mg Q8H ORAL 05/24/18 00:00 05/31/18 00:00 05/24/18 08:35 Dextrose/ Electrolytes 1,000 ml @ 75 mls/hr [id number] IV 05/23/18 17:00 06/22/18 16:59 05/23/18 17:00 Diazepam (Valium) 10 mg Q4H PRN ORAL withdrawal 05/23/18 20:00 05/30/18 19:59 05/24/18 05:52 Docusate Sodium (Colace) 100 mg THREE TIMES A DAY ORAL 05/23/18 18:00 06/22/18 17:59 05/24/18 08:34 Fluoxetine HCl (PROzac) 20 mg DAILY ORAL 05/23/18 20:00 06/22/18 19:59 05/24/18 08:35 Folic Acid (Folate) 1 mg DAILY ORAL 05/23/18 16:45 06/22/18 16:44 05/24/18 08:34 Methadone HCl (Methadone HCl) 20 mg DAILY ORAL 05/24/18 09:00 05/30/18 15:44 UNV Morphine Sulfate (Morphine Sulfate) 2 mg Q4H PRN IVP For Pain 05/23/18 18:00 05/30/18 13:59 05/24/18 05:52 Ondansetron HCl (Zofran) 4 mg Q6H PRN IVP Nausea & Vomiting 05/23/18 14:00 06/22/18 13:59 05/23/18 14:02 Pantoprazole (Protonix) 40 mg EVERY 12 HOURS IVP 05/23/18 21:00 06/22/18 20:59 05/24/18 08:34 Propranolol HCl (Inderal) 10 mg Q8HR ORAL 05/23/18 22:00 06/22/18 21:59 05/24/18 05:52 Tamsulosin HCl (Flomax) 0.4 mg BEDTIME ORAL 05/23/18 21:00 06/22/18 20:59 05/23/18 20:52 Thiamine HCl 100 mg/Dextrose 56 ml @ 110 mls/hr DAILY IVPB 05/24/18 09:00 06/23/18 08:59 Assessment/Plan Assessment/Plan (1) H/o Heroin Abuse on methadone seen dictated Carlitos Wyatt May 24, 2018 08:53
[2018-05-24] MEDS ORDERED: Naloxone 0.4mg/ml Inj IVP PRN (09:00)
[2018-05-24] MEDS ORDERED: Thiamine HCl 100 MG in D5W 55 ML IVPB SCH (09:00)
--- NOTE | 2018-05-24 11:26 | GI Progress Note ---
Assessment/Plan Problems: (1) Accidental methadone overdose ICD Codes: T40.3X1A - Poisoning by methadone, accidental (unintentional), initial encounter SNOMED: 670708136 (2) Alcohol withdrawal ICD Codes: F10.239 - Alcohol dependence with withdrawal, unspecified SNOMED: 533116375 (3) Acute alcoholic intoxication ICD Codes: F10.929 - Alcohol use, unspecified with intoxication, unspecified SNOMED: 37175120 (4) Opiate withdrawal ICD Codes: F11.23 - Opioid dependence with withdrawal SNOMED: 14777377 (5) Pancreatitis ICD Codes: K85.90 - Acute pancreatitis without necrosis or infection, unspecified SNOMED: 22898581 (6) Hypokalemia ICD Codes: E87.6 - Hypokalemia SNOMED: 70932416 Status: stable Status Narrative Discussed with Dr. Martinez. Assessment/Plan CLD, adv as tolerated electrolyte correction Ativan prn pain management supportive care zofran prn fu labs Risks explained to patient about leaving AMA, he acknowledged. The patient was seen and examined at bedside and all new and available data was reviewed in the patients chart. I agree with the above findings, impression and plan. (Patient seen earlier today. Signature stamp does not reflect patient encounter time.). - Eriberto Martinez MD Subjective Subjective feels better wants to go AMA Objective Last 24 Hour Vital Signs Date Time Temp Pulse Resp B/P (MAP) Pulse Ox O2 Delivery O2 Flow Rate FiO2 05/24/18 05:52 82 131/87 05/24/18 04:00 82 05/24/18 04:00 98.9 103 19 131/87 (102) 97 98.9 05/24/18 00:00 99.4 110 20 126/95 (105) 97 99.4 05/24/18 00:00 110 05/23/18 22:00 128 143/81 05/23/18 21:00 Room Air 05/23/18 20:00 97.7 99 22 143/81 (101) 98 97.7 05/23/18 20:00 104 05/23/18 19:14 98.0 05/23/18 18:44 98.0 05/23/18 16:00 113 05/23/18 14:32 98.0 05/23/18 13:29 122 05/23/18 13:18 98.0 112 18 137/95 97 Room Air 208.4 05/23/18 13:00 Room Air Intake and Output 05/23/18 05/24/18 19:00 07:00 Intake Total 0 ml Balance 0 ml Intake Oral 0 ml # Voids 1 2 # Bowel Movements 1 Laboratory Tests Test 05/23/18 23:00 05/24/18 05:52 Urine Color Brown Urine Appearance Cloudy Urine pH 6 (4.5-8.0) Urine Specific [place] 1.020 (1.005-1.035) Urine Protein 4+ (NEGATIVE) H Urine Glucose (UA) Negative (NEGATIVE) Urine Ketones 1+ (NEGATIVE) H Urine Blood 4+ (NEGATIVE) H Urine Nitrite Negative (NEGATIVE) Urine Bilirubin 2+ (NEGATIVE) H Urine Ictotest Negative (NEGATIVE) Urine Urobilinogen 12 MG/DL (0.0-1.0) H Urine Leukocyte Esterase 1+ (NEGATIVE) H Urine RBC 5-10 /HPF (0 - 0) H Urine WBC 2-4 /HPF (0 - 0) Urine Squamous Epithelial Cells Few /LPF (NONE/OCC) Urine Amorphous Sediment Moderate /LPF (NONE) H Urine Bacteria Few /HPF (NONE) Urine Hyaline Casts 2-4 /LPF (NONE) H Urine Mucus Moderate /LPF (NONE/OCC) H Urine Random Sodium 34 mmol/L (20-110) Urine Opiates Screen Positive (NEGATIVE) H Urine Barbiturates Screen Negative (NEGATIVE) Phencyclidine (PCP) Screen Negative (NEGATIVE) Urine Amphetamines Screen Negative (NEGATIVE) Urine Benzodiazepines Screen Positive (NEGATIVE) H Urine Cocaine Screen Negative (NEGATIVE) Urine Marijuana (THC) Screen Negative (NEGATIVE) White Blood Count 5.2 K/UL (4.8-10.8) Red Blood Count 4.89 M/UL (4.70-6.10) Hemoglobin 15.8 G/DL (14.2-18.0) Hematocrit 47.6 % (42.0-52.0) Mean Corpuscular Volume 97 FL (80-99) Mean Corpuscular Hemoglobin 32.4 PG (27.0-31.0) H Mean Corpuscular Hemoglobin Concent 33.3 G/DL (32.0-36.0) Red Cell Distribution Width 11.6 % (11.6-14.8) Platelet Count 137 K/UL (150-450) L Mean Platelet Volume 7.6 FL (6.5-10.1) Neutrophils (%) (Auto) 73.1 % (45.0-75.0) Lymphocytes (%) (Auto) 17.0 % (20.0-45.0) L Monocytes (%) (Auto) 8.5 % (1.0-10.0) Eosinophils (%) (Auto) 0.4 % (0.0-3.0) Basophils (%) (Auto) 1.1 % (0.0-2.0) Prothrombin Time 11.0 SEC (9.30-11.50) Prothromb Time International Ratio 1.0 (0.9-1.1) Activated Partial Thromboplast Time 25 SEC (23-33) Sodium Level 139 MMOL/L (136-145) Potassium Level 4.1 MMOL/L (3.5-5.1) Chloride Level 98 MMOL/L (98-107) Carbon Dioxide Level 33 MMOL/L (21-32) H Anion Gap 8 mmol/L (5-15) Blood Urea Nitrogen 18 mg/dL (7-18) Creatinine 0.9 MG/DL (0.55-1.30) Estimat Glomerular Filtration Rate > 60 mL/min (>60) Glucose Level 100 MG/DL (74-106) Hemoglobin A1c 5.8 % (4.3-6.0) Uric Acid 3.9 MG/DL (2.6-7.2) Calcium Level 9.4 MG/DL (8.5-10.1) Phosphorus Level 2.4 MG/DL (2.5-4.9) L Magnesium Level 2.4 MG/DL (1.8-2.4) Ferritin 1004 NG/ML (8-388) H Total Bilirubin 3.3 MG/DL (0.2-1.0) H Direct Bilirubin 1.8 MG/DL (0.0-0.3) H Gamma Glutamyl Transpeptidase 5120 U/L (5-85) H Aspartate Amino Transf (AST/SGOT) 536 U/L (15-37) H Alanine Aminotransferase (ALT/SGPT) 251 U/L (12-78) H Alkaline Phosphatase 218 U/L (46-116) H Ammonia 60 umol/L (11-32) H Total Creatine Kinase 5635 U/L (26-308) H Troponin I 0.009 ng/mL (0.000-0.056) Pro-B-Type Natriuretic Peptide 102 pg/mL (0-125) Total Protein 8.9 G/DL (6.4-8.2) H Albumin 3.8 G/DL (3.4-5.0) Globulin 5.1 g/dL Albumin/Globulin Ratio 0.7 (1.0-2.7) L Triglycerides Level 157 MG/DL (30-150) H Cholesterol Level 267 MG/DL (< 200) H LDL Cholesterol 131 mg/dL (<100) H HDL Cholesterol 98 MG/DL (40-60) H Cholesterol/HDL Ratio 2.7 (3.3-4.4) L Amylase Level 156 U/L (25-115) H Lipase 1250 U/L (73-393) H Vitamin B12 Level 962 PG/ML (193-986) Folate 46.2 NG/ML (8.6-58.9) Thyroid Stimulating Hormone (TSH) 2.810 uiU/mL (0.358-3.740) Height (Feet): 5 Height (Inches): 6.00 Weight (Pounds): 191 General Appearance: WD/WN, no apparent distress, alert Cardiovascular: normal rate Respiratory/Chest: normal breath sounds, no respiratory distress Abdominal Exam: normal bowel sounds, non tender, soft Extremities: normal range of motion, non-tender Vitor Cruz NP May 24, 2018 11:26
--- NOTE | 2018-05-24 12:18 | Nephrology Progress Note ---
Assessment/Plan Problem List: (1) Pancreatitis (2) Rhabdomyolysis (3) Dehydration (4) Alcoholic liver disease Assessment Acute Pancreatitis Hypokalemia Alcohol Withdraw Opiate withdraw Alcoholic liver disease Rhabdo Plan NPO IV fluid Protonix KCL 2 D ECho IVON abd pending minitor lipase monitor LFTs Subjective ROS Limited/Unobtainable: No Constitutional: Reports: malaise Objective Objective Last 24 Hour Vital Signs Date Time Temp Pulse Resp B/P (MAP) Pulse Ox O2 Delivery O2 Flow Rate FiO2 05/24/18 05:52 82 131/87 05/24/18 04:00 82 05/24/18 04:00 98.9 103 19 131/87 (102) 97 98.9 05/24/18 00:00 99.4 110 20 126/95 (105) 97 99.4 05/24/18 00:00 110 05/23/18 22:00 128 143/81 05/23/18 21:00 Room Air 05/23/18 20:00 97.7 99 22 143/81 (101) 98 97.7 05/23/18 20:00 104 05/23/18 19:14 98.0 05/23/18 18:44 98.0 05/23/18 16:00 113 05/23/18 14:32 98.0 05/23/18 13:29 122 05/23/18 13:18 98.0 112 18 137/95 97 Room Air 208.4 05/23/18 13:00 Room Air Intake and Output 05/23/18 05/24/18 19:00 07:00 Intake Total 0 ml Balance 0 ml Intake Oral 0 ml # Voids 1 2 # Bowel Movements 1 Laboratory Tests 05/23/18 23:00: Urine Color Brown, Urine Appearance Cloudy, Urine pH 6, Urine Specific [place] 1.020, Urine Protein 4+H, Urine Glucose (UA) Negative, Urine Ketones 1+H, Urine Blood 4+H, Urine Nitrite Negative, Urine Bilirubin 2+H, Urine Ictotest Negative , Urine Urobilinogen 12H, Urine Leukocyte Esterase 1+H, Urine RBC 5-10H, Urine WBC 2-4, Urine Squamous Epithelial Cells Few, Urine Amorphous Sediment ModerateH , Urine Bacteria Few, Urine Hyaline Casts 2-4H, Urine Mucus ModerateH, Urine Random Sodium 34, Urine Opiates Screen PositiveH, Urine Barbiturates Screen Negative, Phencyclidine (PCP) Screen Negative, Urine Amphetamines Screen Negative, Urine Benzodiazepines Screen PositiveH, Urine Cocaine Screen Negative , Urine Marijuana (THC) Screen Negative 05/24/18 05:52: White Blood Count 5.2, Red Blood Count 4.89, Hemoglobin 15.8, Hematocrit 47.6, Mean Corpuscular Volume 97, Mean Corpuscular Hemoglobin 32.4H, Mean Corpuscular Hemoglobin Concent 33.3, Red Cell Distribution Width 11.6, Platelet Count 137L, Mean Platelet Volume 7.6, Neutrophils (%) (Auto) 73.1, Lymphocytes (%) (Auto) 17.0L, Monocytes (%) (Auto) 8.5, Eosinophils (%) (Auto) 0.4, Basophils (%) (Auto ) 1.1, Prothrombin Time 11.0, Prothromb Time International Ratio 1.0, Activated Partial Thromboplast Time 25, Sodium Level 139, Potassium Level 4.1, Chloride Level 98, Carbon Dioxide Level 33H, Anion Gap 8, Blood Urea Nitrogen 18, Creatinine 0.9, Estimat Glomerular Filtration Rate > 60, Glucose Level 100, Hemoglobin A1c 5.8, Uric Acid 3.9, Calcium Level 9.4, Phosphorus Level 2.4L, Magnesium Level 2.4, Ferritin 1004H, Total Bilirubin 3.3H, Direct Bilirubin 1.8H , Gamma Glutamyl Transpeptidase 5120H, Aspartate Amino Transf (AST/SGOT) 536H, Alanine Aminotransferase (ALT/SGPT) 251H, Alkaline Phosphatase 218H, Ammonia 60H , Total Creatine Kinase 5635H, Troponin I 0.009, Pro-B-Type Natriuretic Peptide 102, Total Protein 8.9H, Albumin 3.8, Globulin 5.1, Albumin/Globulin Ratio 0.7L , Triglycerides Level 157H, Cholesterol Level 267H, LDL Cholesterol 131H, HDL Cholesterol 98H, Cholesterol/HDL Ratio 2.7L, Amylase Level 156H, Lipase 1250H, Vitamin B12 Level 962, Folate 46.2, Thyroid Stimulating Hormone (TSH) 2.810 Height (Feet): 5 Height (Inches): 6.00 Weight (Pounds): 191 General Appearance: no apparent distress, other - poor hygene Cardiovascular: tachycardia Respiratory/Chest: decreased breath sounds Abdomen: distended Sven Ulloa MD May 24, 2018 12:18
--- NOTE | 2018-05-24 19:22 | Cardiology Report ---
APPROVED REPORT EKG Measurement Heart [id number] FL 120P [id number] Sinus tachycardia with frequent premature ventricular complexes Abnormal ECG
--- NOTE | 2018-05-24 19:52 | Consultation ---
History of Present Illness General Date patient seen: May 23, 2018 Chief Complaint: Abdominal Pain Referring physician: BLU GUERRA Reason for Consultation: ALCOHOLIC PANCREATITIS Present Illness HPI the patient with history of alcohol and heroin withdrawal. Patient is currently on methadone. Patient also has history of pancreatitis. the pt accidently marivel and currently withdrawing. the pt is not si Allergies: Coded Allergies: CODEINE (Unverified Allergy, Unknown, 06/28/17) Medication History Scheduled Alprazolam* (Xanax*), 2 MG ORAL THREE TIMES A DAY, (Reported) Chlordiazepoxide (Chlordiazepoxide HCl), 25 MG ORAL THREE TIMES A DAY Chlordiazepoxide Hcl* (Librium*), 25 MG ORAL EVERY 8 HOURS, (Reported) Folic Acid* (Folic Acid*), 1 MG ORAL DAILY Methadone Hcl* (Methadone*), Unknown Dose PO DAILY, (Reported) Thiamine Hcl* (Vitamin B-1*), 100 MG ORAL DAILY Scheduled PRN Ondansetron Odt* (Zofran Odt*), 4 MG ORAL Q6H PRN for Nausea & Vomiting Patient History History Provided By: Patient, Medical Record, PMD Healthcare decision maker Resuscitation status Full Code Advanced Directive on File Past Medical/Surgical History Past Medical/Surgical History: (1) Acute alcoholic intoxication (2) Accidental methadone overdose (3) Rhabdomyolysis (4) Dehydration (5) Alcoholic liver disease Review of Systems Psychiatric: Reports: prior hx, anxiety, depressed feelings, emotional problems Physical Exam General Appearance: no apparent distress, alert Neurologic: oriented x 3, responsive, depressed affect Last 24 Hour Vital Signs Date Time Temp Pulse Resp B/P (MAP) Pulse Ox O2 Delivery O2 Flow Rate FiO2 05/24/18 05:52 82 131/87 05/24/18 04:00 82 05/24/18 04:00 98.9 103 19 131/87 (102) 97 98.9 05/24/18 00:00 99.4 110 20 126/95 (105) 97 99.4 05/24/18 00:00 110 05/23/18 22:00 128 143/81 05/23/18 21:00 Room Air 05/23/18 20:00 97.7 99 22 143/81 (101) 98 97.7 05/23/18 20:00 104 Intake and Output 05/23/18 05/24/18 19:00 07:00 Intake Total 0 ml Balance 0 ml Intake Oral 0 ml # Voids 1 2 # Bowel Movements 1 Laboratory Tests Test 05/23/18 23:00 05/24/18 05:52 Urine Color Brown Urine Appearance Cloudy Urine pH 6 (4.5-8.0) Urine Specific [place] 1.020 (1.005-1.035) Urine Protein 4+ (NEGATIVE) H Urine Glucose (UA) Negative (NEGATIVE) Urine Ketones 1+ (NEGATIVE) H Urine Blood 4+ (NEGATIVE) H Urine Nitrite Negative (NEGATIVE) Urine Bilirubin 2+ (NEGATIVE) H Urine Ictotest Negative (NEGATIVE) Urine Urobilinogen 12 MG/DL (0.0-1.0) H Urine Leukocyte Esterase 1+ (NEGATIVE) H Urine RBC 5-10 /HPF (0 - 0) H Urine WBC 2-4 /HPF (0 - 0) Urine Squamous Epithelial Cells Few /LPF (NONE/OCC) Urine Amorphous Sediment Moderate /LPF (NONE) H Urine Bacteria Few /HPF (NONE) Urine Hyaline Casts 2-4 /LPF (NONE) H Urine Mucus Moderate /LPF (NONE/OCC) H Urine Random Sodium 34 mmol/L (20-110) Urine Opiates Screen Positive (NEGATIVE) H Urine Barbiturates Screen Negative (NEGATIVE) Phencyclidine (PCP) Screen Negative (NEGATIVE) Urine Amphetamines Screen Negative (NEGATIVE) Urine Benzodiazepines Screen Positive (NEGATIVE) H Urine Cocaine Screen Negative (NEGATIVE) Urine Marijuana (THC) Screen Negative (NEGATIVE) White Blood Count 5.2 K/UL (4.8-10.8) Red Blood Count 4.89 M/UL (4.70-6.10) Hemoglobin 15.8 G/DL (14.2-18.0) Hematocrit 47.6 % (42.0-52.0) Mean Corpuscular Volume 97 FL (80-99) Mean Corpuscular Hemoglobin 32.4 PG (27.0-31.0) H Mean Corpuscular Hemoglobin Concent 33.3 G/DL (32.0-36.0) Red Cell Distribution Width 11.6 % (11.6-14.8) Platelet Count 137 K/UL (150-450) L Mean Platelet Volume 7.6 FL (6.5-10.1) Neutrophils (%) (Auto) 73.1 % (45.0-75.0) Lymphocytes (%) (Auto) 17.0 % (20.0-45.0) L Monocytes (%) (Auto) 8.5 % (1.0-10.0) Eosinophils (%) (Auto) 0.4 % (0.0-3.0) Basophils (%) (Auto) 1.1 % (0.0-2.0) Prothrombin Time 11.0 SEC (9.30-11.50) Prothromb Time International Ratio 1.0 (0.9-1.1) Activated Partial Thromboplast Time 25 SEC (23-33) Sodium Level 139 MMOL/L (136-145) Potassium Level 4.1 MMOL/L (3.5-5.1) Chloride Level 98 MMOL/L (98-107) Carbon Dioxide Level 33 MMOL/L (21-32) H Anion Gap 8 mmol/L (5-15) Blood Urea Nitrogen 18 mg/dL (7-18) Creatinine 0.9 MG/DL (0.55-1.30) Estimat Glomerular Filtration Rate > 60 mL/min (>60) Glucose Level 100 MG/DL (74-106) Hemoglobin A1c 5.8 % (4.3-6.0) Uric Acid 3.9 MG/DL (2.6-7.2) Calcium Level 9.4 MG/DL (8.5-10.1) Phosphorus Level 2.4 MG/DL (2.5-4.9) L Magnesium Level 2.4 MG/DL (1.8-2.4) Ferritin 1004 NG/ML (8-388) H Total Bilirubin 3.3 MG/DL (0.2-1.0) H Direct Bilirubin 1.8 MG/DL (0.0-0.3) H Gamma Glutamyl Transpeptidase 5120 U/L (5-85) H Aspartate Amino Transf (AST/SGOT) 536 U/L (15-37) H Alanine Aminotransferase (ALT/SGPT) 251 U/L (12-78) H Alkaline Phosphatase 218 U/L (46-116) H Ammonia 60 umol/L (11-32) H Total Creatine Kinase 5635 U/L (26-308) H Troponin I 0.009 ng/mL (0.000-0.056) C-Reactive Protein, Quantitative < 0.4 mg/dL (0.00-0.90) Pro-B-Type Natriuretic Peptide 102 pg/mL (0-125) Total Protein 8.9 G/DL (6.4-8.2) H Albumin 3.8 G/DL (3.4-5.0) Globulin 5.1 g/dL Albumin/Globulin Ratio 0.7 (1.0-2.7) L Triglycerides Level 157 MG/DL (30-150) H Cholesterol Level 267 MG/DL (< 200) H LDL Cholesterol 131 mg/dL (<100) H HDL Cholesterol 98 MG/DL (40-60) H Cholesterol/HDL Ratio 2.7 (3.3-4.4) L Amylase Level 156 U/L (25-115) H Lipase 1250 U/L (73-393) H Vitamin B12 Level 962 PG/ML (193-986) Folate 46.2 NG/ML (8.6-58.9) Thyroid Stimulating Hormone (TSH) 2.810 uiU/mL (0.358-3.740) Height (Feet): 5 Height (Inches): 6.00 Weight (Pounds): 191 Assessment/Plan Assessment/Plan alcohol withdrawal polysubstance dependence -methadone -valium -thiamine -folate -prodawnac Brittney Earl MD May 24, 2018 19:52
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
--- NOTE | 2018-05-25 03:00 | Consultation ---
DATE OF CONSULTATION: 05/24/2018 PAIN MANAGEMENT CONSULTATION CONSULTING PHYSICIAN: Guicho Garvey M.D. REFERRING PHYSICIAN: Alden Henry M.D. PHYSICIAN MANAGER COMPLIANCE: MARY CARMEN [place]. HISTORY OF PRESENT ILLNESS: This is a 33-year-old male, who is being seen on the telemetry floor of [facility] for initial comprehensive pain management consultation. The patient was admitted under the care of Dr. Henry daily, which he is on methadone 195mg daily due to heroin abuse. We were consulted so that the patient to have medication started. PAST MEDICAL HISTORY: Denies. PAST SURGICAL HISTORY: Denies. SOCIAL HISTORY: He is a smoker, drug abuser, and alcohol abuser. ALLERGIES: CODEINE. MEDICATIONS: Methadone and Valium. REVIEW OF SYSTEMS: Denies rash, fever, chills, sweating, dizziness, drowsiness, blurred vision, sore throat, or change in weight. No shortness of breath or chest pain. No nausea, vomiting, or blood in the stool or urine. No bowel or bladder incontinence. PHYSICAL EXAMINATION: GENERAL: Alert, awake, and oriented x3. VITAL SIGNS: Blood pressure 125/67, heart rate is 86, oxygen saturation 97%, respiratory rate 19, temperature 98.9 degrees Fahrenheit. HEENT: PERRLA. NECK: Range of motion is full in all directions. No tenderness to paracervical muscles. No adenopathy. LUNGS: Clear bilaterally. HEART: Regular. ABDOMEN: Obese. EXTREMITIES: Upper and lower extremity range of motion is full in all directions. No cyanosis. No clubbing. No edema. Sensory is intact. Reflexes are not obtainable. No adenopathy. ASSESSMENT AND PLAN: This is a 33-year-old male with heroin abuse, on methadone 95 mg b.i.d., verified by the pharmacy. We will discontinue the morphine IV. The patient was discussed with Dr. Garvey and Dr. Garvey concurred. We will follow up the patient. Thank you very much for the courtesy of this consultation. Guicho Garvey M.D. MARY CARMEN [place] DR: DONNA JOB#: [id number] CC: ANTONIO
--- NOTE | 2018-05-25 06:40 | Discharge Summary ---
Discharge Summary Discharge Summary _ DATE OF ADMISSION: 05/23/2018 DATE OF DISCHARGE: 05/24/2018 CONSULTANTS: Dr. Sven Martinez [facility]SE: Patient is a 33-year-old male, with history of alcohol and heroine withdrawal. Patient is on methadone. He was recently admitted to [facility] where he was diagnosed with pancreatitis, he signed out AGAINST MEDICAL ADVICE. He presented to ED complaining of abdominal pain, tachycardia and palpitations with anxiety symptoms consistent with withdrawal. He stated he was unable to take methadone. He denied any fever. Denied any visual or auditory hallucinations. On evaluation at ED, blood pressure was 156/118, heart rate 152. Blood work showed elevated lipase 1159. AST was 725, ALT 318. Potassium was low at 3.1. He was actively vomiting. Chest x-ray showed no acute disease. EKG showed sinus tachycardia. He was then admitted for withdrawal symptoms, pancreatitis and hypokalemia. He was placed on nothing by mouth. He was given banana bag. He was given folate and thiamine. He was placed on Librium and was given benzodiazepines for withdrawal symptoms. He was continued on methadone. He was started on Prozac. For treatment was not carried out as patient left AGAINST MEDICAL ADVICE. FINAL DIAGNOSES: Acute alcoholic pancreatitis Alcohol withdrawal Opiate withdrawal Hypokalemia Alcoholic liver disease Polysubstance dependence Acute alcohol intoxication Accidental methadone overdose Rhabdomyolysis DISPOSITION: Patient left AMA. I have been assigned to dictate discharge summary on this account, and I was not involved in the patient's management. Trini Muñoz NP May 25, 2018 06:40
== END 2018-05-24 11:05 | disposition left against medical advice (07) | DRG 282 ==
LOC: EDBD 09:49 → EMR 10:21 → EDBEDREQ 10:58 → 2E 11:59
DX: K85.20 Alcohol induced acute pancreatitis without necrosis or infection (principal); M62.82 Rhabdomyolysis; K70.10 Alcoholic hepatitis without ascites; F10.229 Alcohol dependence with intoxication, unspecified; F10.239 Alcohol dependence with withdrawal, unspecified; F11.23 Opioid dependence with withdrawal; E87.6 Hypokalemia; F19.20 Other psychoactive substance dependence, uncomplicated; F11.90 Opioid use, unspecified, uncomplicated; Z87.891 Personal history of nicotine dependence; T40.3X1A Poisoning by methadone, accidental (unintentional), initial encounter; Z88.6 Allergy status to analgesic agent
CPT/HCPCS: 36415; 71045; 76770; 80053; 80061; 80307; 81003; 82140; 82150; 82248; 82550; 82607; 82728; 82746; 82977; 83036; 83690; 83735; 83880; 84100; 84300; 84443; 84484; 84550; 85025; 85610; 85730; 86140; 93005; 96361; 96374; 96375; 96376; 99291; J2405

== ENCOUNTER 2018-05-25 11:50 | Emergency (ER) | payer MEDICAID ==
[~2018-05-25] VITALS: Ht 175.3 cm; Wt 90.7 kg
[~2018-05-25 11:50] MED LIST changes: +XANAX2 MG ORAL
[2018-05-25 12:34] VITALS: BP 145/105
[2018-05-25 12:35] LABS: APPEARANCE,URINE CLEAR; BASOPHILS % (AUTO) 1.8 % (0.0-2.0); BILIRUBIN, URINE 2+ (NEGATIVE); COLOR,URINE BROWN; EOSINOPHILS % (AUTO) 1.7 % (0.0-3.0); GLUCOSE, URINE (UA) NEGATIVE (NEGATIVE); HEMATOCRIT 46.2 % (42.0-52.0); HEMOGLOBIN 15.4 G/DL (14.2-18.0); KETONES,URINE 1+ (NEGATIVE); LEUKOCYTE ESTERASE ,URINE 2+ (NEGATIVE); MEAN CORPUSCULAR VOLUME 97 FL (80-99); MONOCYTES % (AUTO) 11.3 % (1.0-10.0); NEUTROPHILS % (AUTO) 66.2 % (45.0-75.0); PH,URINE 6.5 (4.5-8.0); PLATELET COUNT 146 K/UL (150-450); PROTEIN,URINE 3+ (NEGATIVE); RED BLOOD COUNT 4.78 M/UL (4.70-6.10); RED CELL DISTRIBUTION WIDTH 11.4 % (11.6-14.8); UROBILINOGEN,URINE 12 MG/DL (0.0-1.0); WHITE BLOOD COUNT 5.2 K/UL (4.8-10.8)
[2018-05-25 12:44] LABS: ANION GAP 9 mmol/L (5-15); BLOOD UREA NITROGEN 19 mg/dL (7-18); CALCIUM 9.4 MG/DL (8.5-10.1); CARBON DIOXIDE 30 MMOL/L (21-32); CHLORIDE 98 MMOL/L (98-107); CREATININE 0.9 MG/DL (0.55-1.30); POTASSIUM 3.6 MMOL/L (3.5-5.1); SODIUM 137 MMOL/L (136-145)
[2018-05-25 12:46] LABS: NITRITE,URINE NEGATIVE (NEGATIVE)
[2018-05-25 12:52] LABS: ALANINE AMINOTRANSFERASE 282 U/L (12-78); ALBUMIN 3.8 G/DL (3.4-5.0); ALBUMIN/GLOBULIN RATIO 0.8 (1.0-2.7); ALKALINE PHOSPHATASE 202 U/L (46-116); ASPARTATE AMINO TRANSFERASE 696 U/L (15-37); BILIRUBIN,TOTAL 2.5 MG/DL (0.2-1.0)
[2018-05-25 12:55] LABS: BILIRUBIN,DIRECT 1.6 MG/DL (0.0-0.3)
[2018-05-25 13:25] LABS: CREATINE KINASE 4041 U/L (26-308)
[2018-05-25 13:55] VITALS: BP 130/86
--- NOTE | 2018-05-25 14:25 | Emergency Room Report ---
History of Present Illness General Chief Complaint: Abdominal Pain Source: Patient Present Illness HPI This patient left here from [facility] yesterday from the inpatient floor AGAINST MEDICAL ADVICE. Patient has a history of EtOH abuse and has alcoholic hepatitis and pancreatitis. He also is going through alcohol withdrawal and narcotic withdrawal. He states that he was very paranoid and left AGAINST MEDICAL ADVICE yesterday. He returns today to get readmitted. He states that his mind is clear her and that he needs help withdrawing. He also continues to have pain and shakiness. He has no new symptoms or complaints. Allergies: Coded Allergies: CODEINE (Unverified Allergy, Unknown, 06/28/17) MORPHINE (Verified Allergy, Unknown, 05/25/18) Patient History Past Medical History: other - poysubstance abuse, pancreatitis Social History: Reports: alcohol use, drug use Reviewed Nursing Documentation: PMH: Agreed; PSxH: Agreed Nursing Documentation-PM Past Medical History: No History, Except For Hx Cancer: No Hx Gastrointestinal Problems: Yes - pancreatitis Hx Seizures: Yes Hx Tremors: Yes Review of Systems All Other Systems: negative except mentioned in HPI Physical Exam Vital Signs Date Time Temp Pulse Resp B/P (MAP) Pulse Ox O2 Delivery O2 Flow Rate FiO2 05/25/18 12:02 98.5 82 16 143/107 95 Room Air 98.4 Sp02 EP Interpretation: reviewed, normal General Appearance: no apparent distress, alert, GCS 15, non-toxic Head: normocephalic, atraumatic Eyes: bilateral eye normal inspection, bilateral eye PERRL ENT: hearing grossly normal, normal pharynx, no angioedema, normal voice Neck: full range of motion, supple/symm/no masses Respiratory: chest non-tender, lungs clear, normal breath sounds, no respiratory distress, no retraction, no accessory muscle use, speaking full sentences Cardiovascular #1: regular rate, rhythm, no edema Gastrointestinal: normal bowel sounds, non tender, soft, non-distended, no guarding, no rebound, tenderness - epigastrium Rectal: deferred Musculoskeletal: back normal, gait/station normal, normal range of motion, non- tender Neurologic: alert, oriented x3, responsive, motor strength/tone normal, sensory intact, speech normal Psychiatric: judgement/insight normal, memory normal, mood/affect normal, no suicidal/homicidal ideation Skin: normal color, no rash, warm/dry, well hydrated Medical Decision Making Diagnostic Impression: Primary Impression: Alcoholic liver disease Additional Impressions: Rhabdomyolysis Pancreatitis Narcotic withdrawal Alcohol withdrawal ER Course This patient presents with alcoholic hepatitis and pancreatitis. He is also when polysubstance withdrawal. Overall, the patient's vital signs and physical examination are mild. I did review the patient's medical records and he had very severe withdrawal 2 days ago. He does continue to have significantly elevated LFTs and lipase. Right upper quadrant ultrasound shows no evidence of cholecystitis or cholelithiasis or choledocholithiasis. I feel that this patient should be admitted for bowel rest and further monitoring. This patient is stable for transfer. He was transferred to [facility]. Dr. Shen is accepting physician. Laboratory Tests Test 05/25/18 12:20 White Blood Count 5.2 K/UL (4.8-10.8) Red Blood Count 4.78 M/UL (4.70-6.10) Hemoglobin 15.4 G/DL (14.2-18.0) Hematocrit 46.2 % (42.0-52.0) Mean Corpuscular Volume 97 FL (80-99) Mean Corpuscular Hemoglobin 32.2 PG (27.0-31.0) H Mean Corpuscular Hemoglobin Concent 33.3 G/DL (32.0-36.0) Red Cell Distribution Width 11.4 % (11.6-14.8) L Platelet Count 146 K/UL (150-450) L Mean Platelet Volume 7.8 FL (6.5-10.1) Neutrophils (%) (Auto) 66.2 % (45.0-75.0) Lymphocytes (%) (Auto) 19.0 % (20.0-45.0) L Monocytes (%) (Auto) 11.3 % (1.0-10.0) H Eosinophils (%) (Auto) 1.7 % (0.0-3.0) Basophils (%) (Auto) 1.8 % (0.0-2.0) Urine Color Brown Urine Appearance Clear Urine pH 6.5 (4.5-8.0) Urine Specific [place] 1.010 (1.005-1.035) Urine Protein 3+ (NEGATIVE) H Urine Glucose (UA) Negative (NEGATIVE) Urine Ketones 1+ (NEGATIVE) H Urine Blood 2+ (NEGATIVE) H Urine Nitrite Negative (NEGATIVE) Urine Bilirubin 2+ (NEGATIVE) H Urine Ictotest Positive (NEGATIVE) Urine Urobilinogen 12 MG/DL (0.0-1.0) H Urine Leukocyte Esterase 2+ (NEGATIVE) H Urine RBC 2-4 /HPF (0 - 0) H Urine WBC 2-4 /HPF (0 - 0) Urine Squamous Epithelial Cells Occasional /LPF Urine Bacteria Few /HPF (NONE) Sodium Level 137 MMOL/L (136-145) Potassium Level 3.6 MMOL/L (3.5-5.1) Chloride Level 98 MMOL/L (98-107) Carbon Dioxide Level 30 MMOL/L (21-32) Anion Gap 9 mmol/L (5-15) Blood Urea Nitrogen 19 mg/dL (7-18) H Creatinine 0.9 MG/DL (0.55-1.30) Estimate Glomerular Filtration Rate > 60 mL/min (>60) Glucose Level 97 MG/DL (74-106) Calcium Level 9.4 MG/DL (8.5-10.1) Total Bilirubin 2.5 MG/DL (0.2-1.0) H Direct Bilirubin 1.6 MG/DL (0.0-0.3) H Aspartate Amino Transferase (AST) 696 U/L (15-37) H Alanine Aminotransferase (ALT) 282 U/L (12-78) H Alkaline Phosphatase 202 U/L (46-116) H Total Creatine Kinase 4041 U/L (26-308) H Total Protein 8.8 G/DL (6.4-8.2) H Albumin 3.8 G/DL (3.4-5.0) Globulin 5.0 g/dL Albumin/Globulin Ratio 0.8 (1.0-2.7) L Lipase 1413 U/L (73-393) H Urine Opiates Screen Negative (NEGATIVE) Urine Barbiturates Screen Negative (NEGATIVE) Phencyclidine (PCP) Screen Negative (NEGATIVE) Urine Amphetamines Screen Negative (NEGATIVE) Urine Benzodiazepines Screen Positive (NEGATIVE) H Urine Cocaine Screen Negative (NEGATIVE) Urine Marijuana (THC) Screen Negative (NEGATIVE) CT/MRI/US Diagnostic Results CT/MRI/US Diagnostic Results : Imaging Test Ordered: US abd Impression fatty liver. Nml GB. See official report in EMR Last Vital Signs Date Time Temp Pulse Resp B/P (MAP) Pulse Ox O2 Delivery O2 Flow Rate FiO2 05/25/18 13:55 98.4 83 25 130/86 95 Room Air 98.4 Status: improved Disposition: XFER SHT-TRM HOSP Condition: Stable Referrals: [facility],REFERR[facility] (PCP) Ashleigh Kraus DO May 25, 2018 14:25
[2018-05-25 15:43] VITALS: BP 130/86
--- NOTE | 2018-05-25 15:47 | Diagnostic Imaging Report ---
Indication: Epigastric pain, nausea, abnormal liver function tests Technique: Cruz-scale and duplex images of the upper abdomen were obtained Comparison: 07/09/2017 Findings: Gallbladder demonstrates sludge. No stones. No wall thickening or pericholecystic fluid. Sonographic Matthew's sign is negative. Common bile duct measures 5 mm in diameter. No intrahepatic biliary ductal dilatation. Liver demonstrates diffusely increased echogenicity, consistent with diffuse hepatocellular disease, most likely fatty change.. No definite surface nodularity. The liver is enlarged. Portal vein and hepatic veins are patent. Pancreas is unremarkable. Spleen is unremarkable. Left kidney measures 12 cm in length. Right kidney measures 11.9 cm length. Both kidneys demonstrate normal echogenicity. There is no hydronephrosis. No focal abnormality . Abdominal aorta is partially obscured by bowel gas, visualized portions are non-aneurysmal . Impression: Gallbladder sludge. Negative for gallstones or dilated ducts Hepatomegaly. Increased hepatic echogenicity suggests hepatocellular disease, likely fatty change. This was also previously reported Note nonvisualization of the distal abdominal aorta
--- NOTE | 2018-05-27 02:45 | Consultation ---
DATE OF CONSULTATION: 05/23/2018 CONSULTING PHYSICIAN: Lambert Miranda M.D. REFERRING PHYSICIAN: Alden Henry M.D. REASON FOR CONSULTATION: Sinus tachycardia with ventricular premature complexes. HISTORY OF PRESENT ILLNESS: The patient is a very unfortunate 33-year-old gentleman, who has history of alcohol and heroin abuse, on methadone therapy, who presents to the hospital with complaints of palpitation and anxiety symptoms consistent with alcohol and narcotic withdrawal syndrome. The patient has been on Vasotec and methadone because of his withdrawal symptoms. At the time of arrival to the hospital, he has had complaints of feeling hot, also complaining of vomiting and epigastric discomfort. He was recently admitted to [facility] with diagnosis of pancreatitis. At the time of arrival to the hospital, blood pressure was 156/118 and heart rate of 152. Cardiology consultation was made at request of Dr. Henry for evaluation and management of tachycardia. PAST MEDICAL HISTORY: 1. Pancreatitis. 2. History of polysubstance abuse. 3. History of seizure disorder. 4. History of alcohol withdrawal syndrome. 5. History of tremors. PAST SURGICAL HISTORY: None. FAMILY HISTORY: No premature coronary artery disease or arrhythmogenic in first-degree relatives. SOCIAL HISTORY: He has long history of alcohol and heroin use. Denies any tobacco use. REVIEW OF SYSTEMS: A 12-system review done essentially negative except what is mentioned in history of present illness. MEDICATIONS: List of medication includes Xanax 2 mg three times a day, hydrochlorothiazide 25 mg three times a day, folic acid 1 mg p.o. daily, methadone mg by mouth daily, Zofran 4 mg by mouth q.6 h. p.r.n. nausea and vomiting, and thiamine 100 mg p.o. daily. PHYSICAL EXAMINATION: VITAL SIGNS: Blood pressure was 156/118, pulse of 152, respirations of 18, O2 saturation 99% on room air, and temperature 97.3 degrees Fahrenheit. GENERAL: This is a very unfortunate 33-year-old gentleman, in mild respiratory distress. HEENT: Atraumatic and normocephalic. Anicteric. Pupils are equal, round, and reactive to light and accommodation. Extraocular muscles intact. NECK: JVP less than 5 cm. No carotid bruit. Carotid upstrokes 2+ bilaterally. CARDIOVASCULAR: Normal S1 and S2. Regular rate and rhythm. Tachycardic. No murmurs, gallops, or rubs. PMI is at fourth intercostal space in the midclavicular line. LUNGS: Clear to auscultation bilaterally. ABDOMEN: Soft, nontender, and nondistended. No hepatosplenomegaly. Positive bowel sounds. EXTREMITIES: No evidence of edema, clubbing, or cyanosis. LABORATORY FINDINGS AND IMAGING: WBC 9.3, hemoglobin 19.2, hematocrit of 58.1, and platelet count was 214,000. Sodium 141, potassium is 3.1, chloride 94, bicarbonate 29, BUN of 13, creatinine 1.4, glucose 150, and calcium 10.4. Total bilirubin 2.2 and direct 1.2. AST 725 and ALT 318. Troponin I was 0. Lipase was 1159. INR is 1.0. Toxicology showed the presence of opiates and benzodiazepines in the urine. Chest x-ray, no acute cardiopulmonary findings. ASSESSMENT AND PLAN: The patient is a very unfortunate 33-year-old gentleman, seen in cardiology consultation at request of Dr. Henry. 1. Sinus tachycardia, most likely due to alcohol withdrawal syndrome. The patient will benefit from propranolol 10 mg three to four times a day, hydration with banana bag, and considering replacing phosphate and magnesium. The long-acting benzodiazepine will also help with the tachycardia. 2. Polysubstance abuse. I would like to thank, Dr. Henry for allowing me to participate in the care of this patient. Lambert Miranda M.D. DR: DIONI JOB#: [id number] CC:
== END 2018-05-25 15:55 | disposition short-term general hospital (02) ==
LOC: EMR 12:40
DX: K70.9 Alcoholic liver disease, unspecified (principal); F10.239 Alcohol dependence with withdrawal, unspecified; M62.82 Rhabdomyolysis; K85.90 Acute pancreatitis without necrosis or infection, unspecified; F11.23 Opioid dependence with withdrawal
CPT/HCPCS: 36415; 76700; 80053; 80307; 81003; 82248; 82550; 83690; 85025; 96360; 99285

== ENCOUNTER 2018-06-12 11:28 | Emergency (ER) | payer MEDICAID ==
[~2018-06-12] VITALS: Ht 175.3 cm; Wt 95.3 kg
[2018-06-12 12:00] VITALS: BP 120/80
[2018-06-12] MEDS ORDERED: Bacitracin Oint UD TOPIC ONE (12:00)
[2018-06-12] MEDS ORDERED: Acetaminophen 500mg (ES) tab ORAL ONE (12:00)
--- NOTE | 2018-06-12 12:26 | Diagnostic Imaging Report ---
Indication: Headache, head trauma yesterday Technique: Continuous helical CT scanning of the head was performed without intravenous contrast material. Axial and coronal 5 mm sections were generated. Radiation dose was minimized using automated exposure control Dose: Total Dose Length Product - DLP 1326.[address] Dose Index - CTDIvol(s) 70.38 mGy. Comparison: 02/11/2016 Findings: The ventricular system is normal in size and configuration. There is no shift of midline structures. No abnormal extra-axial fluid collections are noted. There is no evidence of intracerebral bleeding. No other abnormal high or low density areas are noted within the brain. Normal reddy-white differentiation. Prominent cisterna magna again noted. Intact calvarium. Visualized orbits and sinuses are unremarkable. Impression: Normal CT scan of the head without contrast material. The CT scanner at [facility] is accredited by the [employer] and the scans are performed using protocols designed to limit radiation exposure to as low as reasonably achievable to attain images of sufficient resolution adequate for diagnostic evaluation.
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
[2018-06-12 13:02] LABS: BASOPHILS % (AUTO) 0.9 % (0.0-2.0); EOSINOPHILS % (AUTO) 2.5 % (0.0-3.0); HEMATOCRIT 39.4 % (42.0-52.0); HEMOGLOBIN 13.5 G/DL (14.2-18.0); LYMPHOCYTES % (AUTO) 31.9 % (20.0-45.0); MEAN CORPUSCULAR VOLUME 97 FL (80-99); MONOCYTES % (AUTO) 6.9 % (1.0-10.0); NEUTROPHILS % (AUTO) 57.8 % (45.0-75.0); PLATELET COUNT 210 K/UL (150-450); RED BLOOD COUNT 4.06 M/UL (4.70-6.10); RED CELL DISTRIBUTION WIDTH 11.3 % (11.6-14.8); WHITE BLOOD COUNT 5.7 K/UL (4.8-10.8)
[2018-06-12 13:12] LABS: INR 1.1 (0.9-1.1)
[2018-06-12 13:24] LABS: ANION GAP 7 mmol/L (5-15); BLOOD UREA NITROGEN 4 mg/dL (7-18); CALCIUM 8.3 MG/DL (8.5-10.1); CARBON DIOXIDE 30 MMOL/L (21-32); CHLORIDE 106 MMOL/L (98-107); CREATININE 0.7 MG/DL (0.55-1.30); POTASSIUM 3.9 MMOL/L (3.5-5.1); SODIUM 143 MMOL/L (136-145)
[2018-06-12 13:28] LABS: ALANINE AMINOTRANSFERASE 133 U/L (12-78); ALBUMIN 2.7 G/DL (3.4-5.0); ALBUMIN/GLOBULIN RATIO 0.6 (1.0-2.7); ALKALINE PHOSPHATASE 229 U/L (46-116); ASPARTATE AMINO TRANSFERASE 254 U/L (15-37); BILIRUBIN,TOTAL 0.5 MG/DL (0.2-1.0)
[2018-06-12] MEDS ORDERED: TYLENOL EXTRA500 MG ORAL (14:07)
[2018-06-12] MEDS ORDERED: BACITRACIN-P28.35 GM TP (14:07)
[2018-06-12 14:30] VITALS: BP 120/80
--- NOTE | 2018-06-12 17:39 | Diagnostic Imaging Report ---
Clinical Indication:Pain, trauma Technique: 3 views of the left wrist Comparison: No Findings: There is a transverse fracture the base of the first metatarsal. This appears to be displaced by about one half bone width. There is widening of the joint space between the trapezium and the proximal fragment, indicating subluxation and ligamentous injury. Other acute fractures. No dislocations elsewhere. The joint spaces are preserved Impression: Positive for displaced fracture of the base of the first metacarpal. Associated subluxation of the metacarpophalangeal joint is noted Findings previously discussed by phone with Dr. Glasgow
--- NOTE | 2018-06-12 17:41 | Diagnostic Imaging Report ---
Indication: Hand pain, trauma Technique: 3 views left hand Comparison: none Findings: There is a fracture of the base of the first metacarpal. This is displaced by at least one half bone width. There is widening of the carpometacarpal joint, indicating likely subluxation and ligamentous injury. No other acute fractures. No dislocations. The joint spaces are preserved Impression: Positive for fracture of the base of the first metacarpal. Evidence of associated subluxation of the first carpometacarpal joint and likely ligamentous injury findings previously discussed by phone with Dr. Glasgow in the emergency room
== END 2018-06-12 14:30 | disposition left against medical advice (07) ==
LOC: EMR 12:14
DX: S62.212A Bennett's fracture, left hand, initial encounter for closed fracture (principal); S62.232A Other displaced fracture of base of first metacarpal bone, left hand, initial encounter for closed fracture; S09.90XA Unspecified injury of head, initial encounter; W05.1XXA Fall from non-moving nonmotorized scooter, initial encounter; Y92.9 Unspecified place or not applicable; R74.8 Abnormal levels of other serum enzymes; Z88.5 Allergy status to narcotic agent; Z86.69 Personal history of other diseases of the nervous system and sense organs
CPT/HCPCS: 70450; 80053; 83690; 85025; 85610; 85730; 96360; 99284

== ENCOUNTER 2018-06-23 11:18 | Emergency (ER) | payer MEDICAID ==
[~2018-06-23] VITALS: Ht 175.3 cm; Wt 86.2 kg
[~2018-06-23 11:18] MED LIST changes: +BACITRACIN-P28.35 GM TP; +TYLENOL EXTRA500 MG ORAL
[2018-06-23] MEDS ORDERED: LORazepam 1mg tab ORAL ONE (12:15)
[2018-06-23 12:21] VITALS: BP 135/89
--- NOTE | 2018-06-23 12:22 | Emergency Room Report ---
History of Present Illness General Chief Complaint: General Complaint Source: Patient Present Illness HPI 33yo M with h/o benzo and opioid abuse and dependence presents with his significant other, requesting that he get methadone, because he is in withdrawal. When asked specifically what kind of symptoms is having he is reporting feels woozy, no energy, nauseated, has not vomited, not had diarrhea, is calm and comfortable with normal vital signs here. Allergies: Coded Allergies: CODEINE (Unverified Allergy, Unknown, 06/28/17) MORPHINE (Verified Allergy, Unknown, 05/25/18) Patient History Past Medical History: see triage record Reviewed Nursing Documentation: PMH: Agreed; PSxH: Agreed Nursing Documentation-PMH Past Medical History: No History, Except For Hx Cancer: No Hx Gastrointestinal Problems: Yes - pancreatitis Hx Seizures: Yes Hx Tremors: Yes Review of Systems All Other Systems: negative except mentioned in HPI Physical Exam Vital Signs Date Time Temp Pulse Resp B/P (MAP) Pulse Ox O2 Delivery O2 Flow Rate FiO2 06/23/18 11:12 98.0 90 18 140/90 99 Room Air 98.1 Sp02 EP Interpretation: reviewed, normal General Appearance: no apparent distress, alert, non-toxic, other - Appears disheveled Head: normocephalic, atraumatic Eyes: bilateral eye normal inspection, bilateral eye PERRL, bilateral eye EOMI ENT: normal ENT inspection, hearing grossly normal, normal pharynx, no angioedema, normal voice, moist mucus membranes Neck: normal inspection, full range of motion, supple, supple/symm/no masses Respiratory: chest non-tender, lungs clear, normal breath sounds, chest symmetrical, palpation of chest normal Cardiovascular #1: normal peripheral pulses, regular rate, rhythm, no edema, no JVD Cardiovascular #2: 2+ radial (R), 2+ radial (L) Gastrointestinal: normal inspection, non tender, soft, no mass, no guarding, no rebound Rectal: deferred Genitourinary: normal inspection, no CVA tenderness Musculoskeletal: back normal, gait/station normal, normal range of motion, non- tender, no calf tenderness Neurologic: alert, responsive, vibrator equipment tester III-XII nml as tested, motor strength/tone normal, sensory intact, speech normal, other - No tremor Psychiatric: judgement/insight normal, memory normal, mood/affect normal Skin: normal color, no rash, warm/dry, normal turgor Lymphatic: no adenopathy Medical Decision Making Diagnostic Impression: Primary Impression: Encounter for generalized patient complaints ER Course Patient with no clinical signs of life-threatening withdrawal, he has not vomited here, not been retching, no diarrhea, no abdominal pain, normal heart rate, normal blood pressure, normal neurologic examination, clear sensorium, will discharge after giving 1 dose of by mouth Ativan. Patient requesting methadone, I reported that I have never given this and the ER, he provides a card saying this is his clinic and we need to fax them, I reported no matter what they tell me I will not be giving methadone here. He is agreeable to discharge because he says his clinical was at 2 PM, and I told him he can go there get his methadone, and come back here if he needs any medical attention. He agrees. Last Vital Signs Date Time Temp Pulse Resp B/P (MAP) Pulse Ox O2 Delivery O2 Flow Rate FiO2 06/23/18 11:12 98.0 90 18 140/90 99 Room Air 98.1 Disposition: HOME, SELF-CARE ARVIN DEWEY M.D Jun 23, 2018 12:22
[2018-06-23 12:32] VITALS: BP 135/89
== END 2018-06-23 12:32 | disposition home or self-care (01) ==
LOC: EDBD 11:18 → EMR 12:09
DX: Z03.89 Encounter for observation for other suspected diseases and conditions ruled out (principal); F11.90 Opioid use, unspecified, uncomplicated
CPT/HCPCS: 99282

== ENCOUNTER 2018-07-25 07:55 | Emergency (ER) | payer MEDICAID ==
[~2018-07-25] VITALS: Ht 172.7 cm; Wt 65.8 kg
[2018-07-25 08:22] LABS: HEMATOCRIT 49.2 % (42.0-52.0); HEMOGLOBIN 17.1 G/DL (14.2-18.0); MEAN CORPUSCULAR VOLUME 93 FL (80-99); PLATELET COUNT 189 K/UL (150-450); RED BLOOD COUNT 5.29 M/UL (4.70-6.10); RED CELL DISTRIBUTION WIDTH 12.1 % (11.6-14.8); WHITE BLOOD COUNT 8.1 K/UL (4.8-10.8)
[2018-07-25] MEDS: Morphine Sulfate 4mg/ml Inj (IV/IM USE ONLY) IVP ONE (08:26)
[2018-07-25] MEDS: LORazepam Inj 2mg/ml 1ml IV ONE ×2 (08:26→09:14)
--- NOTE | 2018-07-25 08:30 | Emergency Room Report ---
History of Present Illness General Chief Complaint: Vomiting Source: Patient, EMS Present Illness HPI Patient has history alcohol abuse, anxiety, opiate abuse. Patient states that he is an alcoholic. Patient's currently on methadone for his opiate abuse. He takes Xanax for his anxiety. Patient states that he has been abusing alcohol pretty heavily until yesterday. He started to develop nausea vomiting associated epigastric pain. He has a history of pancreatitis and thinks that he might be having on again. He states that he also feels very anxious and he took his last Xanax yesterday. He is compliant with his methadone. He denies any fever or leg pain at this time. Complains of chest discomfort because of pain radiating from his epigastrium. He denies any hematemesis or coffee- ground emesis. Denies melena. No other complaints are noted. Symptoms noted to be severe. Patient was brought in by the paramedics.No other modifying factors. No other associated signs and symptoms. No other complaints were noted. Allergies: Coded Allergies: CODEINE (Unverified Allergy, Unknown, 06/28/17) MORPHINE (Verified Allergy, Unknown, 05/25/18) Patient History Past Medical History: other - Pancreatitis, liver cirrhosis, alcoholic, anxiety , opiate dependent Pertinent Family History: none Social History: Reports: alcohol use, drug use Reviewed Nursing Documentation: PMH: Agreed; PSxH: Agreed Nursing Documentation-PMH Past Medical History: No History, Except For Hx Cancer: No Hx Gastrointestinal Problems: Yes - Pancreatitis, liver cirrhosis, Hepatitis Hx Tremors: Yes Review of Systems All Other Systems: negative except mentioned in HPI Physical Exam Vital Signs Date Time Temp Pulse Resp B/P (MAP) Pulse Ox O2 Delivery O2 Flow Rate FiO2 07/25/18 07:48 98.4 67 18 159/99 100 Room Air Sp02 EP Interpretation: reviewed, normal General Appearance: alert, moderate distress Head: atraumatic Eyes: bilateral eye normal inspection ENT: normal ENT inspection, hearing grossly normal, normal voice Neck: normal inspection, full range of motion, supple, no bony tend Respiratory: normal inspection, lungs clear, normal breath sounds, no respiratory distress, no retraction, no wheezing Cardiovascular #1: regular rate, rhythm, no edema Gastrointestinal: normal inspection, normal bowel sounds, soft, no guarding, no hernia, tenderness - epigastric Genitourinary: no CVA tenderness Musculoskeletal: normal inspection, back normal, normal range of motion Neurologic: normal inspection, alert, responsive, speech normal Psychiatric: depressed affect, anxious Skin: normal inspection, normal color, no rash Medical Decision Making Diagnostic Impression: Primary Impression: Pancreatitis Additional Impressions: Alcohol abuse Alcohol withdrawal Opiate dependence ER Course Patient presents emergency department today with abdominal pain. Differential diagnoses include alcohol withdrawal, pancreatitis, opiate dependence, dehydration just to name a few.Given the severity of the patient's presentation I felt this is a highly complex patient. This patient required extensive workup. Patient's laboratory workup was not impressive except for evidence of pancreatitis and hepatitis. I felt that this is likely secondary to his alcohol drinking. Patient was given fluids Ativan and felt better. Given patient's presentation evidence of pancreatitis acute vomiting and inability tolerate by mouth I felt the patient require admission. Case was discussed with Dr. Shen. Patient will be transferred for further treatment. Labs Test 07/25/18 08:03 White Blood Count 8.1 K/UL (4.8-10.8) Red Blood Count 5.29 M/UL (4.70-6.10) Hemoglobin 17.1 G/DL (14.2-18.0) Hematocrit 49.2 % (42.0-52.0) Mean Corpuscular Volume 93 FL (80-99) Mean Corpuscular Hemoglobin 32.3 PG (27.0-31.0) Mean Corpuscular Hemoglobin Concent 34.7 G/DL (32.0-36.0) Red Cell Distribution Width 12.1 % (11.6-14.8) Platelet Count 189 K/UL (150-450) Mean Platelet Volume 8.5 FL (6.5-10.1) Neutrophils (%) (Auto) % (45.0-75.0) Lymphocytes (%) (Auto) % (20.0-45.0) Monocytes (%) (Auto) % (1.0-10.0) Eosinophils (%) (Auto) % (0.0-3.0) Basophils (%) (Auto) % (0.0-2.0) Differential Total Cells Counted 100 Neutrophils % (Manual) 87 % (45-75) Lymphocytes % (Manual) 6 % (20-45) Monocytes % (Manual) 7 % (1-10) Eosinophils % (Manual) 0 % (0-3) Basophils % (Manual) 0 % (0-2) Band Neutrophils 0 % (0-8) Platelet Estimate Adequate Platelet Morphology Normal Red Blood Cell Morphology Normal Sodium Level 138 MMOL/L (136-145) Potassium Level 3.4 MMOL/L (3.5-5.1) Chloride Level 98 MMOL/L (98-107) Carbon Dioxide Level 25 MMOL/L (21-32) Anion Gap 15 mmol/L (5-15) Blood Urea Nitrogen 5 mg/dL (7-18) Creatinine 1.0 MG/DL (0.55-1.30) Estimat Glomerular Filtration Rate > 60 mL/min (>60) Glucose Level 113 MG/DL (74-106) Calcium Level 9.3 MG/DL (8.5-10.1) Total Bilirubin 1.9 MG/DL (0.2-1.0) Direct Bilirubin 1.0 MG/DL (0.0-0.3) Aspartate Amino Transf (AST/SGOT) 397 U/L (15-37) Alanine Aminotransferase (ALT/SGPT) 86 U/L (12-78) Alkaline Phosphatase 378 U/L (46-116) Total Creatine Kinase 740 U/L (26-308) Creatine Kinase MB 3.7 NG/ML (0.0-3.6) Creatine Kinase MB Relative Index 0.5 Troponin I 0.017 ng/mL (0.000-0.056) Total Protein 9.8 G/DL (6.4-8.2) Albumin 3.3 G/DL (3.4-5.0) Globulin 6.5 g/dL Albumin/Globulin Ratio 0.5 (1.0-2.7) Lipase 588 U/L (73-393) EKG Diagnostic Results Rate: tachycardiac Rhythm: NSR ST Segments: no acute changes Other Impression bigeminy, PVC Rhythm Strip Diag. Results EP Interpretation: yes Rate: 111 Rhythm: NSR, other - Bigeminy PVC, no evidence of fibrillation Chest X-Ray Diagnostic Results Chest X-Ray Diagnostic Results : Chest X-Ray Ordered: Yes # of Views/Limited/Complete: 1 View Indication: Chest Pain EP Interpretation: Yes Interpretation: no consolidation, no effusion, no pneumothorax, no acute cardiopulmonary disease Impression: No acute disease Electronically Signed by: Electronically signed by Terrance Tomas MD Last Vital Signs Date Time Temp Pulse Resp B/P (MAP) Pulse Ox O2 Delivery O2 Flow Rate FiO2 07/25/18 07:48 98.4 67 18 159/99 100 Room Air Status: improved Disposition: XFER [facility] HOSP Condition: Serious Referrals: [facility],REFERRING (PCP) Terrance Tomas MD Jul 25, 2018 08:30
[2018-07-25 08:38] VITALS: BP 133/82
[2018-07-25 08:38] LABS: ANION GAP 15 mmol/L (5-15); BLOOD UREA NITROGEN 5 mg/dL (7-18); CALCIUM 9.3 MG/DL (8.5-10.1); CARBON DIOXIDE 25 MMOL/L (21-32); CHLORIDE 98 MMOL/L (98-107); POTASSIUM 3.4 MMOL/L (3.5-5.1); SODIUM 138 MMOL/L (136-145)
[2018-07-25 08:46] LABS: ALANINE AMINOTRANSFERASE 86 U/L (12-78); ALBUMIN 3.3 G/DL (3.4-5.0); ALBUMIN/GLOBULIN RATIO 0.5 (1.0-2.7); ALKALINE PHOSPHATASE 378 U/L (46-116); ASPARTATE AMINO TRANSFERASE 397 U/L (15-37); BILIRUBIN,TOTAL 1.9 MG/DL (0.2-1.0); CKMB 3.7 NG/ML (0.0-3.6); CREATINE KINASE 740 U/L (26-308)
--- NOTE | 2018-07-25 10:09 | Diagnostic Imaging Report ---
Indication: Chest pain Technique: One view of the chest Comparison: 05/23/2018 Findings: Persistent low lung volumes. Lungs and pleural spaces are clear. Heart size is normal. No significant change Impression: No acute process
[2018-07-25 10:21] VITALS: BP 134/93
[2018-07-25 10:34] VITALS: BP 134/93
--- NOTE | 2018-07-26 17:04 | Cardiology Report ---
APPROVED REPORT EKG Measurement Heart [id number] Sinus tachycardia with short MS with frequent premature ventricular complexes in a pattern of bigeminy Abnormal ECG
== END 2018-07-25 10:34 | disposition short-term general hospital (02) ==
LOC: EDBD 07:55 → EMR 08:24
DX: K85.90 Acute pancreatitis without necrosis or infection, unspecified (principal); F10.239 Alcohol dependence with withdrawal, unspecified; F11.20 Opioid dependence, uncomplicated; R25.1 Tremor, unspecified; F41.9 Anxiety disorder, unspecified; Z79.899 Other long term (current) drug therapy; K70.30 Alcoholic cirrhosis of liver without ascites; K70.10 Alcoholic hepatitis without ascites; Z88.5 Allergy status to narcotic agent
CPT/HCPCS: 36415; 71045; 80053; 82248; 82550; 82553; 83690; 84484; 85007; 85025; 93005; 96361; 96374; 96375; 96376; 99284; J2405